=== PATIENT | female | born 1955 | race Caucasian/White ===

== ENCOUNTER 2017-10-28 05:08 | Day surgery (SDC) | payer OTHER ==
[~2017-10-28] VITALS: Ht 167.6 cm; Wt 58.3 kg
[~2017-10-28 05:08] MED LIST: ARIC5TAB PO; BUPR-197 PO; LAMO25 PO; LATU80TA PO; LEVO.05 PO; PRAV40TA2 PO; PROC10TA4 PO
[2017-10-28] MEDS ORDERED: IOHEXOL 350 MG/ML 100 ML BTL (for Cath Lab) OTHER ONE (05:09)
[2017-10-28] MEDS ORDERED: MULT-65 PO (05:36)
[2017-10-28] MEDS ORDERED: OMEGCAP PO (05:36)
[2017-10-28] MEDS ORDERED: VITA200013 (05:36)
[2017-10-28] MEDS ORDERED: LOVA10TA PO (05:36)
[2017-10-28] MEDS ORDERED: MIRT1TAB PO (05:36)
[2017-10-28] MEDS ORDERED: LEVO.125 PO (05:36)
[2017-10-28] MEDS ORDERED: ABIL10TA8 PO (05:36)
[2017-10-28] MEDS ORDERED: Calcium PO (05:36)
[2017-10-28] MEDS ORDERED: BUSP15TA PO (05:36)
[2017-10-28] MEDS ORDERED: LAMO25 PO (05:36)
[2017-10-28] MEDS ORDERED: NS 1000P @30 MLS/HR (KVO) IV SCH (05:45)
[2017-10-28] MEDS ORDERED: ASPIRIN 325 MG TAB PO SCH (05:45)
[2017-10-28 05:46] VITALS: BP 166/84; PULSE 87; RESP 16; TEMP 97.8; O2SAT 97
[2017-10-28 05:59] LABS: AUTOMATED NEUTROPHIL # 3.3 TH/MM3 (1.8-7.7); BASOPHIL # 0.1 TH/MM3 (0-0.2); BASOPHIL % 0.9 % (0.0-2.0); EOSINOPHIL # 0.6 TH/MM3 (0-0.4); EOSINOPHIL % 8.8 % (0.0-4.0); HEMATOCRIT 39.9 % (35.0-46.0); HEMOGLOBIN 13.3 GM/DL (11.6-15.3); LYMPH % 29.7 % (9.0-44.0); LYMPHOCYTE # 2.1 TH/MM3 (1.0-4.8); MEAN CELL VOLUME 93.2 FL (80.0-100.0); MEAN CORPUSCULAR HEMOGLOBIN 31.1 PG (27.0-34.0); MEAN CORPUSCULAR HGB CONC 33.4 % (32.0-36.0); MEAN PLATELET VOLUME 8.9 FL (7.0-11.0); MONO % 13.6 % (0.0-8.0); PLATELET COUNT 269 TH/MM3 (150-450); RED BLOOD COUNT 4.28 MIL/MM3 (4.00-5.30); RED CELL DISTRIBUTION WIDTH 13.9 % (11.6-17.2); WHITE BLOOD COUNT 7.1 TH/MM3 (4.0-11.0)
[2017-10-28 06:14] LABS: BICARBONATE 30.5 MEQ/L (21.0-32.0); CALCIUM 9.3 MG/DL (8.5-10.1); CREATININE 1.04 MG/DL (0.50-1.00)
[2017-10-28 06:25] LABS: PROTHROMBIN TIME - PATIENT 10.3 SEC (9.8-11.6)
[2017-10-28] MEDS ORDERED: HEPARIN-NS/PF FLUSH BAG 2,000 ML IV FLUSH ONE (07:02)
[2017-10-28] MEDS ORDERED: ASPIRIN 325 MG TAB ONE (07:11)
[2017-10-28] MEDS ORDERED: MIDAZOLAM HCL 2 MG/2 ML VIAL ONE (07:11)
[2017-10-28] MEDS ORDERED: LIDOCAINE HCL 1% PF 30 ML VIAL ONE (07:23)
[2017-10-28] MEDS ORDERED: NITROGLYCERIN INJ 5 ML ONE (07:34)
--- NOTE | 2017-10-28 08:21 | EKG ---
Date Performed: 10/28/2017 Time Performed: 05:57:10 PTAGE: 62 years EKG: Sinus rhythm with 1st degree A-V block Possible left atrial abnormality Leftward axis Inferior infarct - age unde termined Possible anterior infarct - age undetermined Minimal voltage criteria for LVH Abnormal ECG NO PREVIOUS TRACING DOCTOR: Alfonso Gaona Interpretating Date/Time 10/28/2017 08:20:22
[2017-10-28] MEDS ORDERED: SODIUM CHLORIDE 0.9% FLUSH 10 ML FLUSH IV FLUSH PRN (08:45)
[2017-10-28] MEDS ORDERED: MISC INFORMATION XX ONE (08:45)
[2017-10-28] MEDS ORDERED: ONDANSETRON HCL 4 MG/2 ML VIAL IV PUSH PRN (08:45)
[2017-10-28] MEDS ORDERED: BACITRACIN OINT 0.9 GM PKT TOP ONE (08:45)
[2017-10-28] MEDS ORDERED: SODIUM CHLOR 0.9% 1000 ML INJ 1,000 ML IV SCH (09:00)
[2017-10-28] MEDS ORDERED: SODIUM CHLORIDE 0.9% FLUSH 10 ML FLUSH IV FLUSH SCH (09:00)
--- NOTE | 2017-10-28 09:00 | CATHPROC ---
Travel Notes HIS Report Study Information Study Number Admission Scheduled Start Study Start [id number] Oct 28 2017 5:08AM 10/28/2017 Oct 28 2017 6:55AM [place] [facility] Cardiac Catheterization Admit Source Facility Department Other [facility] - Clerical Administrator Physician and Clinical Staff Initial Kendall Salamanca Field Sales Trainer Manjula Toscano,RN Field Sales Trainer Arnaud Marcus,RN Recorder Karla Terry ,RT(R) Scrub Keli Franz,RT(R) Procedures Performed Procedure Location (Site) Vessel Name Angiogram LV LV Ventricle Coronary Angiograms LCA Left Coronary Coronary Angiograms RCA Right Coronary Equipment Time Server Software Engineer Description Size Mfg Part Number Used/Scraped [id number] 06:58 GARCIA GUSMAN SWAN NEVILLE CATHETER FR 7 Used *[id number] TRANSDUCER, TRUWAVE [id number] 06:58 GARCIA GUSMAN * Used W/STOCKCOCK *[id number] TRANSDUCER, TRUWAVE [id number] 06:58 GARCIA UGSMAN * Used W/STOCKCOCK *[id number] *[id number] [id number] *[id number] [id number] *[id number] 06:58 MEDLINE INDUSTRIES PACK, CCL CUSTOM * Used *[id number] 06:58 Enable Injections PACER PEN, SKIN DUAL W/ RULER * Used *[id number] 07:19 Porphyrio MEDICAL SHEATH, FR6.5 PRELUDE 11CM FR 6.5 038ACT Used *[id number] 06:58 Porphyrio MEDICAL WIRE, 3MMJ .035 180CM 180CM Used *[id number] 06:58 NAMIC MANIFOLD, 2 PORT * Used *[id number] 06:58 NAMIC MANIFOLD, 4 PORT * Used *[id number] 06:58 NYCOMED OMNIPAQUE, 350 MG, 100ML 100ML [id number] Used [id number] 06:58 PIZANO MEDICAL BLANKET,WARM AIR CCL * Used *[id number] 06:58 TERUMO MEDICAL SHEATH, FR7 TERUMO (10CM) FR 7 Used *[id number] History: Current Medications Medication Dosage/Unit Route Frequency Last Date/Time Taken ASA Statins (any) Synthroid History: Allergies Allergy Reaction *MDRO Multi-Drug Resistant Organism History: Risk Factors Family History of Hypertension Dyslipidemia Previous IA Previous Heart Failure Premature CAD No Yes No No No Prior Valve Prior PCI Prior CABG Surgery No No No Cerebrovascular Peripheral Artery Chronic Lung On Dialysis Diabetes Disease Disease Disease No No No No No History: Stress Tests Stress or Imaging Studies Performed No History: Other Current Smoker Method Quit Packs a Day Years Used Pack Years No Cigarettes 10 Years Ago 1 1 1 Labs Hgb (g/dl) Hct (%) WBC (l/cumm) Platelets (thousands) 11.60-17.00 35.00-51.00 4.00-11.00 150.00-450.00 13.3 39.9 7.1 269 Glucose (mg/dl) BUN (mg/dl) Creatinine (mg/dl) BUN:Creatinine (1:x) 74.00-106.00 7.00-18.00 0.50-1.30 10.00-20.00 94 17 1.0 17 Na (meq/l) K (meq/l) 136.00-145.00 3.50-5.10 140 3.9 INR (PTT:PT) 0.90-1.10 1 CPK-MB (ng/ML) 0.50-3.60 Not Drawn Medication Medication Total Dose (Bolus/Oral) Medication Total Dosage/Unit 1% XYLOCAINE 15 mL VERSED 1 mg Medications (Bolus/Oral) Medication Time Given Dosage/Unit Administered By Reason VERSED 10/28/2017 7:53:45 AM 1 mg Arnaud Marcus 1 mg VERSED given in lab by Arnaud Marcus, RN in Left Antecubital via Peripheral IV. Ordered by Kendall Sheppard. 1% XYLOCAINE 10/28/2017 7:58:20 AM 15 mL Kendall Sheppard 15 mL 1% XYLOCAINE given in lab by Kendall Sheppard in Right Groin via Subcutaneous. Ordered by Kendall Sheppard. Medication (Drip) Medication Time Given Dosage/Unit Concentration/Unit Diluent (ml) Solution IV Solutions 10/28/2017 7:17:04 AM 50 mL (IV) NaCl .9 Patient arrived on IV Solutions in Left Antecubital via Peripheral IV. Pump/Drip Flow using NaCl .9. Initial Case Assessment Cardiovascular HR NIBP Chest Pain 96 163/87 0 Edema Present Skin color Skin None Normal Warm Dry Circulatory - Right Pulses Dorsalis Pedis Femoral 2 2 Scale (0,1,2,3,4,d) Circulatory - Left Pulses Dorsalis Pedis Femoral 2 2 Scale (0,1,2,3,4,d) Circulatory - Lower Extremities Color Lower Right Color Lower Left Normal Normal Neurological State Oriented to time-place- Alert Moves all extremities person Respiration - General Respiration Rate SpO2 (%) (B/min) 20 98 Final Case Assessment Cardiovascular HR NIBP Chest Pain 96 163/87 0 Edema Present Skin color Skin None Normal Warm Dry Circulatory - Right Pulses Dorsalis Pedis Femoral 2 2 Scale (0,1,2,3,4,d) Circulatory - Left Pulses Dorsalis Pedis Femoral 2 2 Scale (0,1,2,3,4,d) Circulatory - Lower Extremities Color Lower Right Color Lower Left Normal Normal Neurological State Oriented to time-place- Alert Moves all extremities person Respiration - General Respiration Rate SpO2 (%) (B/min) 20 98 Chronological Log Time Study Chronological Log 7:10:11 Patient arrived via Bed. 7:10:15 Patient Name, D.O.B, / Armband Verified By R.N. 7:16:50 Consent signed by the physician and the patient and verified by the Clerical Administrator staff. 7:16:51 Pre-op and post- op instructions given; patient acknowledges understanding of instructions. 7:16:52 Verbal Stimulation=2 Physical Stimulation=2 Airway=2 Respiration=2 TOTAL=8. (0=absent, 1=li mited, 2=present) 7:16:57 Patient has been NPO for More than 6Hrs. 7:16:57 Skin Breakdown- none per patient 7:16:59 Patient Warmer Placed on the Table. 7:17:01 Jeffrey Prominences Protected 7:17:03 A # 20 IV was noted in the Antecubital (left). Grade = 0 7:17:04 Patient arrived on IV Solutions in Left Antecubital via Peripheral IV. Pump/Drip Flow using NaCl .9. 7:17:06 History and physical on the chart or being dictated. Assessment: Initial Case, HR=96 BPM, IBZR=482/87 mmhg, Chest Pain=0, Edema=None, Color=Normal, S kin = Warm, Dry Right Pulses: Rupert Ped=2, Femoral=2 Left Pulses: Rupert Ped=2, Femoral=2 7:17:09 Lower Right Extremities: Color=Normal Lower Left Extremities: Color=Normal Neurological: State=Alert, Ox3, [place] Respiration: Resp=20 B/min, SpO2=98 % Vitals capture started with the following parameters, Patient=Adult, Interval=5 min, Initial Pre bjiac=892 mmHg, 7:18:34 Deflation Rate=5 mmHg, Cuff placed on Unknown 7:19:16 HR=90 bpm, OBVR=959/87 mmhg, SpO2=99.0 %, Resp=14 B/min, Pain=0, Corbin=10, Gomez=2 7:22:53 Reference ECG taken 7:24:15 HR=93 bpm, FLIN=630/90 mmhg, ImR4=973.0 %, Resp=14 B/min, Pain=0, Corbin=10, Gomez=2 7:29:12 HR=95 bpm, DIAW=654/95 mmhg, SpO2=99.0 %, Resp=16 B/min, Pain=0, Corbin=10, Gomez=2 7:34:17 HR=93 bpm, PAVD=642/83 mmhg, SpO2=99.0 %, Resp=29 B/min, Pain=0, Corbin=10, Gomez=2 7:39:51 HR=89 bpm, FKKU=893/80 mmhg, SpO2=96.0 %, Resp=12 B/min, Pain=0, Corbin=10, Gomez=2 7:41:21 MD arrived. 7:42:52 Pressure channel 1 zeroed. 7:44:11 HR=94 bpm, KFXG=774/88 mmhg, SpO2=98.0 %, Resp=18 B/min, Pain=0, Corbin=10, Gomez=2 7:49:14 HR=96 bpm, JIOQ=493/79 mmhg, SpO2=98.0 %, Resp=10 B/min, Pain=0, Corbin=10, Gomez=2 7:53:45 1 mg VERSED given in lab by Arnaud Marcus, RN in Left Antecubital via Peripheral IV. Ordered by Kendall Sheppard. 7:54:11 LF=569 bpm, ITMX=851/80 mmhg, SpO2=99.0 %, Resp=18 B/min, Pain=0, Corbin=10, Gmoez=2 Time Out. Correct patient, correct procedure, correct physician, power injector loaded with cont rast with surgical team 7:55:11 present. Time Out Concurred by MD and individual staff in procedure. 7:55:35 Case Start 7:58:20 15 mL 1% XYLOCAINE given in lab by Kendall Sheppard in Right Groin via Subcutaneous. Ordered by Kendall Sheppard. 7:59:14 HR=98 bpm, YXYF=665/82 mmhg, SpO2=99.0 %, Resp=17 B/min, Pain=0, Corbin=10, Gomez=2 7:59:19 Access site was Right Femoral Artery. 7:59:50 A SHEATH, FR6.5 PRELUDE 11CM FR 6.5 was advanced into the Fem Art (right) using the Percutan eous technique. 8:01:12 Access site was Right Femoral Vein. 8:01:20 A SHEATH, FR7 TERUMO (10CM) FR 7 was advanced into the Fem Vein (right) using the Percutaneo us technique. A SWAN NEVILLE CATHETER FR 7 was advanced over a wire. OMNIPAQUE, 350 MG, 100ML 100ML was used for 8:03:13 injections. 8:04:11 HR=97 bpm, DITD=197/81 mmhg, SpO2=96.0 %, Resp=22 B/min, Pain=0, Corbin=10, Gomez=2 Recorded Pressure: RA, HR=96, Condition=Condition 1 8:04:23 (Right Atrium) RA 6/7/5 Recorded Pressure: RV, HR=98, Condition=Condition 1 8:04:41 (Right Ventricle) RV 44/-1/6 Recorded Pressure: MPA, HR=97, Condition=Condition 1 8:05:07 (Main Pulmonary Artery) MPA 44/20/30 Recorded Pressure: PCW, HR=97, Condition=Condition 1 8:05:25 (Pulmonary Capillary Wedge) PCW 17/14/12 Thermo CO: CO=3.1 l/m, HR=96 bpm, Condition=Condition 1. Used in calculation. 8:06:42 Equipment: Description and Size=SWAN NEVILLE CATHETER FR 7, Type=Bath Probe, CC=0.579 Injectant: Temp=19.0 - 22.0 Celsius, Volume=10.0 ml Thermo CO: CO=3.1 l/m, HR=96 bpm, Condition=Condition 1. Used in calculation. 8:07:22 Equipment: Description and Size=PIGTAIL STR INFINITI CATHETER FR 6, Type=Bath Probe Thermo CO: CO=3.4 l/m, HR=95 bpm, Condition=Condition 1. Used in calculation. 8:08:39 Equipment: Description and Size=SWAN NEVILLE CATHETER FR 7, Type=Bath Probe, CC=0.579 Injectant: Temp=19.0 - 22.0 Celsius, Volume=10.0 ml 8:09:12 Saturation: Site=Ao (Aorta) , O2=94.1 %, Hgb=13.3 gm/dl, Condition=Condition 1. Used in calc ulation. 8:09:14 HR=97 bpm, TSWF=902/78 mmhg, SpO2=96.0 %, Resp=14 B/min, Pain=0, Corbin=10, Gomez=2 8:09:16 Saturation: Site=PA (Pulmonary Artery) , O2=73 %, Hgb=13.3 gm/dl, Condition=Condition 1. Use d in calculation. 8:10:06 [place] Neville Catheter Removed A PIGTAIL STR INFINITI CATHETER FR 6 was advanced over a wire. OMNIPAQUE, 350 MG, 100ML 100ML wa s used for 8:10:31 injections. 8:12:51 The LV was injected at 20 cc/sec for a total of 40. OMNIPAQUE, 350 MG, 100ML 100ML used. 8:14:11 HR=93 bpm, JYKN=252/78 mmhg, SpO2=99.0 %, Resp=16 B/min, Pain=0, Corbin=10, Gomez=2 After removing the current catheter a JL 4.0 INFINITI CATHETER FR 6 was advanced over a WIRE, 3M MJ .035 180CM 8:14:33 180CM. Recorded Pressure: Ao, HR=92, Condition=Condition 1 8:15:29 (Aorta) Ao 139/72/102 8:16:30 The LCA was injected and visualized at various angles. OMNIPAQUE, 350 MG, 100ML 100ML used. 8:16:56 Catheter was removed A 3DRC INFINITI CATHETER FR 6 was advanced over a wire. OMNIPAQUE, 350 MG, 100ML 100ML was used for 8:19:02 injections. 8:19:08 The RCA was injected and visualized at various angles. OMNIPAQUE, 350 MG, 100ML 100ML used. 8:19:16 HR=81 bpm, SGCC=340/71 mmhg, SpO2=97.0 %, Resp=21 B/min, Pain=0, Corbin=10, Gomez=2 8:19:30 Catheter was removed 8:20:39 Case End 8:24:15 HR=88 bpm, RGYZ=268/66 mmhg, SpO2=97.0 %, Resp=17 B/min, Pain=0, Corbin=10, Gomez=2 Assessment: Final Case, HR=96 BPM, TQAM=308/87 mmhg, Chest Pain=0, Edema=None, Color=Normal, Ski n = Warm, Dry Right Pulses: Rupert Ped=2, Femoral=2 Left Pulses: Rupert Ped=2, Femoral=2 8:29:04 Lower Right Extremities: Color=Normal Lower Left Extremities: Color=Normal Neurological: State=Alert, Ox3, [place] Respiration: Resp=20 B/min, SpO2=98 % 8:29:14 HR=87 bpm, TEFB=397/72 mmhg, SpO2=98.0 %, Resp=16 B/min, Pain=0, Corbin=10, Gomez=2 8:32:12 Catheter(s) removed without difficulty 8:32:16 Sheath removed; pressure applied to access site. 8:32:26 Sterile dressing applied to site 8:32:28 No case complications noted. 8:32:30 Cine recording checked. 8:32:35 Bedside Report will be given. 8:32:59 A Left and Right Heart Cath was performed. 8:34:15 HR=90 bpm, JTEB=151/78 mmhg, SpO2=97.0 %, Resp=16 B/min, Pain=0, Corbin=10, Gomez=2 8:39:16 HR=88 bpm, ULHU=500/69 mmhg, DcH2=174.0 %, Resp=27 B/min, Pain=0, Corbin=10, Gomez=2 8:44:11 HR=83 bpm, NLJI=651/72 mmhg, SpO2=99.0 %, Resp=12 B/min, Pain=0, Corbin=10, Gomez=2 8:49:12 HR=85 bpm, QFPZ=392/70 mmhg, SpO2=96.0 %, Resp=19 B/min, Pain=0, Corbin=10, Gomez=2 8:52:24 Sterile dressing applied to site 8:53:50 Vitals capture stopped. 8:54:10 DOCU called. Spoke to Navarro. 8:54:58 Patient moved to stretcher End Study - Contrast Media Used In Study Contrast Total Opened (mL) Total Used (mL) Total Wasted (mL) Omnipaque 60 60 0 End Study - Maximum Contrast Load Max Contrast Load (mL) 291.6 End Study - Radiation Exposure Fluoro Time (minutes) 2.9 End Study - Sheaths Sheaths Pulled By Sheath Hold Time (min) Arnaud Marcus End Study - Patient Disposition Complications Transferred To Interventional Outcome No Telemetry Bed No attempt made
--- NOTE | 2017-10-28 09:28 | MA ---
cc: Kendall Sheppard MD DATE: 10/28/2017 PROCEDURE PERFORMED: Right heart catheterization, coronary angiography, supravalvular aortography. BRIEF HISTORY: Randy Khan is a 62-year-old woman that I have been following for aortic stenosis. Recently, she has developed a feeling of being extra tired and her mean aortic valve gradient shot up from 26 mm to 43 mm indicating severe aortic stenosis. DESCRIPTION OF PROCEDURE: The patient was brought to the cardiac catheterization lab in a fasting state. The right groin was prepped and draped in sterile fashion. Using 1% lidocaine for local anesthesia, a 6.5-Kyrgyz sheath was inserted in the right femoral artery and a 7-Kyrgyz sheath in right femoral vein. Next, right heart catheterization was performed in standard fashion using a [place]-Rayray catheter. Cardiac outputs obtained. The [place]-Rayray was then removed. Next, a supravalvular aortography was performed in the [place] projection. Lastly, coronary angiography was completed using a left 4 Tatyana for left coronary artery and a 3DRC for the right coronary artery. The sheath are now being pulled manually. There were no complications. Estimated blood loss was 3 mL FINDINGS: I. HEMODYNAMICS: Right atrial pressure was 6/7 with a mean of 5. Right ventricular pressure was 44/0 with an end end-diastolic pressure of 6. Pulmonary artery pressure was 44/20 with a mean of 30. Pulmonary capillary wedge pressure was 17/14 with a mean of 12. Aortic pressure was 139/72 with a mean of 102. Cardiac output calculated by thermodilution technique at 3.2 liters/minute. The [place] cardiac output was 5.4 liters/minute utilizing saturations of 94% in the femoral artery and 73% in the pulmonary artery. II. SUPRAVALVULAR AORTOGRAPHY: The aortic valve was noted to be heavily calcified and tricuspid. The valve appears markedly stenotic. There is at least 2+ aortic regurgitation appreciated. The aorta appears unremarkable as does the iliac bifurcation. III. CORONARY ANGIOGRAPHY: The coronary circulation is right dominant. All 3 coronary arteries appear normal. CONCLUSIONS: 1. Known severe aortic stenosis with an echocardiogram showing a mean aortic valve gradient of 43 mmHg. 2. At least moderate aortic regurgitation which probably precludes the ability to do transcatheter aortic valve replacement, meaning she will need open aortic valve replacement. 3. Normal coronary arteries. PLAN: Consult Dr. Navarrete for open AVR. That and then before I concluded. Cardiac output does fill in the blanks on that. Cardiac output was calculated by thermodilution technique at 3.2 liters per minute. The [place] cardiac output was 5.4 liters per minute utilizing saturations of 94% on the femoral artery and 73% of the pulmonary artery. MD AALIYAH Pacheco/MARIBELL , 08:31 AM , 09:27 AM
--- NOTE | 2017-10-28 12:07 | RADRPT ---
EXAM DATE/TIME: 10/28/2017 11:31 [facility] COMPARISON: No previous studies available for comparison. INDICATIONS : Pre op for aortic valve replacement. MEDICAL HISTORY : Hypertension. Spleen cancer. Hodgins. SURGICAL HISTORY : Splenectomy. Hysterectomy. ENCOUNTER: Initial ACUITY: 1 day PAIN SCORE: 0/10 LOCATION: Bilateral chest FINDINGS: A single view of the chest demonstrates postsurgical changes on the left with volume loss. Elevation left hemidiaphragm. Right lung is clear. No consolidation. Osseous structures are intact. Scoliosis. Residual contrast left collecting system. CONCLUSION: Postsurgical changes and volume loss on the left. Rajan Ahumada MD on October 28, 2017 at 12:04 Board Certified Radiologist. This report was verified electronically.
--- NOTE | 2017-10-28 12:17 | RADRPT ---
EXAM DATE/TIME: 10/28/2017 11:39 [facility] COMPARISON: No previous studies available for comparison. INDICATIONS : Preop aortic valve replacement. MEDICAL HISTORY : Hypothyroidism. Seizures. HTN. Irregular heartbeat. Carcinoma, ovarian and spleen. Hodgkins disea se. Bipolar disorder. Depression. Anxiety. SURGICAL HISTORY : Splenectomy. Hysterectomy. Thyroplasty. Tumor removed from chest wall. Radiation therapy. ENCOUNTER: Initial ACUITY: 1 day PAIN SCORE: 0/10 LOCATION: Bilateral neck PEAK SYSTOLIC VELOCITIES (cm/sec): ICA/CCA RATIO: Right: 1.1 Left: 1.3 ICA: Right: 80 Left: 105 CCA: Right: 74 Left: 79 ECA: Right: 76 Left: 59 VERTEBRAL: Right: 39 antegrade Left: 43 antegrade Elevated flow velocities and ICA/CCA ratios have been found to correlate with increased degrees of vessel stenosis, calculated as percentage of diameter relative to a normal segment of distal ICA/CCA FINDINGS: RIGHT CAROTID: No significant stenosis is visualized. Minimal scattered plaque. The waveforms are within normal limi ts. LEFT CAROTID: No significant stenosis is visualized. Minimal scattered plaque. The waveforms are within normal wade its. VERTEBRAL ARTERIES: Antegrade flow is seen in both vertebral arteries. MISCELLANEOUS: None. CONCLUSION: No hemodynamically significant stenosis in either carotid artery. Rajan Ahumada MD on October 28, 2017 at 12:14 Board Certified Radiologist. This report was verified electronically.
--- NOTE | 2017-10-28 15:21 | PD.CAR.PN ---
CVT Progress Note Subjective/Hospital Course: pt seen and evaluated full note dictated for elective AVR as outpt repeat PFT/ FEV1 0.80/ ?? await CT chest / hx of prior partial sternotomy removal tumor ( Hodgkins lymphoma) RISK SCORES About the STS Risk Calculator Procedure: AV Replacement Risk of Mortality: 2.237% Morbidity or Mortality: 15.707% Long Length of Stay: 6.478% Short Length of Stay: 38.137% Permanent Stroke: 0.95% Prolonged Ventilation: 10.744% DSW Infection: 0.15% Renal Failure: 2.674% Reoperation: 6.545% Objective: Vital Signs Date Time Temp Pulse Resp B/P (MAP) Pulse Ox O2 Delivery O2 Flow Rate FiO2 10/28/17 09:10 98 Room Air 10/28/17 05:46 97.8 87 16 166/84 (111) 97 Labs: Laboratory Tests Test 10/28/17 05:43 White Blood Count 7.1 TH/MM3 (4.0-11.0) Red Blood Count 4.28 MIL/MM3 (4.00-5.30) Hemoglobin 13.3 GM/DL (11.6-15.3) Hematocrit 39.9 % (35.0-46.0) Mean Corpuscular Volume 93.2 FL (80.0-100.0) Mean Corpuscular Hemoglobin 31.1 PG (27.0-34.0) Mean Corpuscular Hemoglobin Concent 33.4 % (32.0-36.0) Red Cell Distribution Width 13.9 % (11.6-17.2) Platelet Count 269 TH/MM3 (150-450) Mean Platelet Volume 8.9 FL (7.0-11.0) Neutrophils (%) (Auto) 47.0 % (16.0-70.0) Lymphocytes (%) (Auto) 29.7 % (9.0-44.0) Monocytes (%) (Auto) 13.6 % (0.0-8.0) Eosinophils (%) (Auto) 8.8 % (0.0-4.0) Basophils (%) (Auto) 0.9 % (0.0-2.0) Neutrophils # (Auto) 3.3 TH/MM3 (1.8-7.7) Lymphocytes # (Auto) 2.1 TH/MM3 (1.0-4.8) Monocytes # (Auto) 1.0 TH/MM3 (0-0.9) Eosinophils # (Auto) 0.6 TH/MM3 (0-0.4) Basophils # (Auto) 0.1 TH/MM3 (0-0.2) CBC Comment DIFF FINAL Differential Comment Prothrombin Time 10.3 SEC (9.8-11.6) Prothromb Time International Ratio 1.0 RATIO Activated Partial Thromboplast Time 23.0 SEC (24.3-30.1) Blood Urea Nitrogen 17 MG/DL (7-18) Creatinine 1.04 MG/DL (0.50-1.00) Random Glucose 94 MG/DL (74-106) Calcium Level 9.3 MG/DL (8.5-10.1) Sodium Level 140 MEQ/L (136-145) Potassium Level 3.9 MEQ/L (3.5-5.1) Chloride Level 103 MEQ/L (98-107) Carbon Dioxide Level 30.5 MEQ/L (21.0-32.0) Anion Gap 7 MEQ/L (5-15) Estimat Glomerular Filtration Rate 54 ML/MIN (>89) Result Diagram: 10/28/17 0543 10/28/17 0543 Judith Pruitt Oct 28, 2017 15:21
[2017-10-28 15:55] LABS: BILIRUBIN, URINE NEG (NEG); BLOOD, URINE NEG (NEG); GLUCOSE,URINE NEG (NEG); KETONE, URINE NEG (NEG); NITRITE,URINE NEG (NEG); SQUAMOUS EPITHELIAL CELL URINE 1 /hpf (0-5); URINE COLOR LIGHT-YELLOW (YELLW/STRAW); URINE LEUKOCYTE ESTERASE NEG (NEG)
--- NOTE | 2017-10-28 16:08 | MB ---
cc: Judith Pruitt Jacqueline R ARNP DATE: 10/28/2017 DATE OF : 1955 HISTORY OF PRESENT ILLNESS: A 62-year-old female patient of Dr. Selwyn Ty with a history of aortic regurgitation, aortic stenosis, increasing symptoms of fatigue, shortness of breath with exertion; no chest pain, more noticeably over the last couple of months. She underwent cardiac catheterization today after her recent echo on 10/08/2017 which showed an ejection fraction of 62%, the aortic valve area up to 0.66 with a mean gradient of 46, peak gradient of 83. She also had some moderate regurgitation, mild mitral regurgitation and mild tricuspid regurgitation, mild LVH. Cardiac catheterization revealed no evidence of coronary artery disease. Her right-sided heart pressures: RA pressure of 6, mean of 5, RV pressure of 44, PA pressure of 44/20 with a mean of 30, wedge pressure with a mean of 12. We were consulted for aortic valve replacement. PAST MEDICAL HISTORY: Aortic stenosis, aortic regurgitation, first degree AV block, bipolar disorder with prior history of katrina, in fact she has been hospitalized in the past and also Dykes Acted, depression, Hodgkin's lymphoma with a history of radiation, splenectomy, also partial sternotomy - apparently they removed a tumor at that time, hyperlipidemia, hypertension, hypothyroidism, skin cancer - basal cell removed behind the right ear. PAST SURGICAL HISTORY: Other surgeries include colonoscopy, hysterectomy, oophorectomy, splenectomy, vocal cord biopsy. ALLERGIES: NO KNOWN ALLERGIES. HOME MEDICATIONS: Include: 1. Abilify. 2. Aspirin. 3. BuSpar. 4. Fluoxetine. 5. Lamotrigine or Lamictal. 6. Levothyroxine. 7. Lovastatin. 8. Mirtazapine. FAMILY HISTORY: History of lung cancer in her father. Mother had from breast cancer and Alzheimer's. SOCIAL HISTORY: Lives alone, has a sister who is visiting with her now. Remote history of tobacco and rare alcohol. She did some illicit drugs about 30 years ago, nothing recent. REVIEW OF SYSTEMS: GENERAL: No night sweats, fever, heat and cold intolerance. SKIN: No psoriasis, itching or hives. HEENT: No blurred vision, hearing loss. RESPIRATORY: Positive for shortness of breath with exertion. No chest pain, no paroxysmal nocturnal dyspnea. No orthopnea. GASTROINTESTINAL: No diarrhea or vomiting. GENITOURINARY: No burning, frequency, urgency. CENTRAL NERVOUS SYSTEM: No history of TIA, CVA or seizure disorder. ENDOCRINOLOGY: Positive for hypothyroidism. PHYSICAL EXAMINATION: VITAL SIGNS: Blood pressure 160/80, heart rate of 80, afebrile, O2 saturation 97 on room air. GENERAL: Awake and alert, in no acute distress. Slight flat affect. HEENT: Head is normocephalic, atraumatic. Pupils equal and reactive. Oral mucosa pink, moist. NECK: Supple. No JVD. CARDIOVASCULAR: Heart sounds S1, S2, with a grade 3/6 systolic murmur best heard at the left sternal border. CHEST: She has got a well-healed sternal incision. LUNGS: Clear to auscultation. No wheezes, rales or rhonchi. ABDOMEN: Soft, nontender. No masses or organomegaly. EXTREMITIES: No cyanosis, clubbing, or edema. LABORATORY DATA: Shows INR 1.0. Hemoglobin 13, hematocrit 39, white cell count of 7.1, platelet count of 269. Sodium 140, potassium 3.9, BUN is 17, creatinine 1.04. EKG shows sinus rhythm with some Q-waves in her inferior leads with normal coronaries on the cath. Echo as above. IMPRESSION AND PLAN: This is a 62-year-old female with severe aortic stenosis, symptomatic. At this time we are pending CTA of the chest secondary also to a sternotomy she had prior for her Hodgkin's lymphoma back in 1980. Also, repeat pulmonary function tests pending for her FEV1. Apparently, she was not completely sitting up during the test. We will repeat the studies. We will bring the patient back to see Dr. Navarrete in the office on 11/11/2016 to evaluate at that time all her preprocedure results and discuss that and surgery at that time will be determined by Dr. Navarrete. VIJI Bell MD JRT/SB , 03:28 PM , 04:06 PM
[2017-10-28 16:48] LABS: HEMOGLOBIN A1C 5.6 % (4.3-6.0)
[2017-10-28] MEDS ORDERED: IOHEXOL 350 MG/ML 10 ML VIAL (for RAD DIAG) IVCONTRAST ONE (18:20)
--- NOTE | 2017-10-29 12:32 | RADRPT ---
EXAM DATE/TIME: 10/28/2017 18:09 [place] COMPARISON: No previous studies available for comparison. INDICATIONS : Preoperative Trans Aortic Valve Replacement. IV CONTRAST: 72 cc Omnipaque 350 (iohexol) IV RADIATION DOSE: 28.16 CTDIvol (mGy) MEDICAL HISTORY : Hypertension. Seizures. ovarian cancer, splenic cancer SURGICAL HISTORY : Hysterectomy. coronary stent placement ENCOUNTER: Initial ACUITY: 1 day PAIN SCALE: 0/10 LOCATION: Bilateral chest TECHNIQUE: Volumetric scanning was performed using a multi-row detector CT scanner. The data was post processed with a variety of visualization algorithms including full volume maximum intensity projection, multi -planar sliding thin slab reformation, curved planar reformation, and surface rendering techniques. Using automated exposure control and adjustment of the mA and/or kV according to patient size, radiat ion dose was kept as low as reasonably achievable to obtain optimal diagnostic quality images. DIC OM format image data is available electronically for review and comparison. FINDINGS: CARDIAC: Coronary dominance cannot be determined due to the limited anatomic detail of the coronaries. T here is no pericardial effusion AORTIC ROOT/VALVE: 3 cusps are evident with extensive calcification. The aortic root measures 3.2. Mid thoracic aorta measures 2.9 with no calcifications. THORACIC AORTA: Origin of the great vessels is normal. No evidence of aneurysm, mural thrombus, dissection or stenos is. Some calcification in the arch. ABDOMINAL AORTA: No evidence of aneurysm, mural thrombus, dissection, or stenosis. Scattered atherosclerotic calcifica tion CELIAC ARTERY: Celiac artery is widely patent. There appears to be a clip on the splenic artery with splenectomy. SMA: Superior mesenteric artery is widely patent. RIGHT RENAL ARTERY: Main and accessory right renal arteries are patent. LEFT RENAL ARTERY: Main and accessory left renal arteries are patent. RIGHT COMMON ILIAC: No evidence of aneurysm, mural thrombus, dissection or stenosis. Some calcification in the common il iac. The common femoral measures 8.4 mm. LEFT COMMON ILIAC: No evidence of aneurysm, mural thrombus, dissection, mural calcification, or stenosis. The common fe moral measures 8.1 mm. There is some stranding in the right inguinal region possibly representing rec ent catheterization. THORAX: Multiple surgical clips in the mediastium possibly representing prior claudia dissection. There is dens e calcification of the mitral valve annulus ABDOMEN: Patient is status post splenectomy. There also appears to be marked atrophic changes along the superi or pole of left kidney. Diverticular disease of the descending colon without diverticulitis. Appendix is identified and is radiographically normal. PELVIS: Patient is status post hysterectomy. CONCLUSION: 1. Dense atherosclerotic calcification of the aortic valve as above. Calcification of the mitral rusty ve annulus. 2. Main and accessory renal arteries bilaterally. Mesenteric vessels appear to be patent. 3. Atrophic changes in the upper pole of the left kidney. Patient is status post splenectomy. Chris Coley MD on October 29, 2017 at 11:41 Board Certified Radiologist. This report was verified electronically.
--- NOTE | 2017-10-30 08:21 | RSPPFT ---
DATE OF PROCEDURE: 10/27/17 COMMENTS: VOLUMES DYNAMIC: FVC and FEV1 severely reduced. FLOWS: FEV1% normal; FEF 25-75 severely reduced. IMPRESSION: Probable severe restrictive ventilatory defect although obstruction cannot be fully assessed without full lung volumes.
[2017-10-31] MEDS ORDERED: CALC12502 PO (10:37)
== END 2017-10-28 18:50 | disposition home or self-care (01) ==
LOC: HDOC 05:08 → HDIC 05:08 → HDOC 18:50
PROVIDERS: ATTEND Internal Medicine Cardiovascular Disease
DX: I35.0 Nonrheumatic aortic (valve) stenosis (principal); I35.1 Nonrheumatic aortic (valve) insufficiency; I10 Essential (primary) hypertension; I44.0 Atrioventricular block, first degree; Q27.2 Other congenital malformations of renal artery; E03.9 Hypothyroidism, unspecified; F31.9 Bipolar disorder, unspecified; F41.9 Anxiety disorder, unspecified; Z85.43 Personal history of malignant neoplasm of ovary; Z85.71 Personal history of Hodgkin lymphoma; Z90.81 Acquired absence of spleen; Z95.5 Presence of coronary angioplasty implant and graft; Z01.811 Encounter for preprocedural respiratory examination; Z01.818 Encounter for other preprocedural examination; Z01.812 Encounter for preprocedural laboratory examination
CPT/HCPCS: 71045; 74174; 80048; 81001; 82810; 83036; 85025; 85610; 85730; 86850; 86900; 86901; 87641; 93005; 93460; 93880; 94010; 99152; 99153; C1769; C1893; J1644; J2250; Q9967

== ENCOUNTER → 2017-12-08 | Outpatient (CLI) | payer OTHER ==
[~2017-12-08] MED LIST changes: +ABIL10TA8 PO; -ARIC5TAB PO; -BUPR-197 PO; +BUSP15TA PO; +CALC12502 PO; +ECASA81 PO; +FLUO10TA PO; -LATU80TA PO; -LEVO.05 PO; +LEVO.125 PO; +LOVA10TA PO; +MIRT1TAB PO; +MULT-65 PO; +OMEGCAP PO; -PRAV40TA2 PO; -PROC10TA4 PO; +VITA200013
[2017-12-08 11:39] LABS: BASOPHIL # 0.1 TH/MM3 (0-0.2); BASOPHIL % 0.8 % (0.0-2.0); EOSINOPHIL # 0.6 TH/MM3 (0-0.4); EOSINOPHIL % 6.1 % (0.0-4.0); HEMATOCRIT 39.4 % (35.0-46.0); HEMOGLOBIN 13.2 GM/DL (11.6-15.3); LYMPH % 25.4 % (9.0-44.0); LYMPHOCYTE # 2.3 TH/MM3 (1.0-4.8); MEAN CELL VOLUME 93.5 FL (80.0-100.0); MEAN CORPUSCULAR HEMOGLOBIN 31.3 PG (27.0-34.0); MEAN CORPUSCULAR HGB CONC 33.4 % (32.0-36.0); MEAN PLATELET VOLUME 8.8 FL (7.0-11.0); MONO % 12.3 % (0.0-8.0); MONOCYTE # 1.1 TH/MM3 (0-0.9); NEUT % 55.4 % (16.0-70.0); PLATELET COUNT 283 TH/MM3 (150-450); RED BLOOD COUNT 4.21 MIL/MM3 (4.00-5.30); RED CELL DISTRIBUTION WIDTH 13.7 % (11.6-17.2); WHITE BLOOD COUNT 9.1 TH/MM3 (4.0-11.0)
[2017-12-08 12:09] LABS: BICARBONATE 26.4 MEQ/L (21.0-32.0); CALCIUM 9.5 MG/DL (8.5-10.1); CREATININE 0.92 MG/DL (0.50-1.00)
== END ==
LOC: CLAB 11:03
PROVIDERS: ATTEND Internal Medicine
DX: Z01.812 Encounter for preprocedural laboratory examination (principal); I35.0 Nonrheumatic aortic (valve) stenosis
CPT/HCPCS: 36415; 80048; 85025; 85610; 86850; 86900; 86901

== ENCOUNTER 2017-12-10 05:31 | Inpatient (IN) | payer OTHER, MEDICARE ==
[~2017-12-10] VITALS: Ht 167.6 cm; Wt 60.0 kg
[2017-12-10] VITALS (9 sets, daily range): BP systolic 137–164; BP diastolic 51–85; PULSE 82–100; RESP 16–20; TEMP 94.7–98.3; O2SAT 95–99
[~2017-12-10 05:31] MED LIST changes: -ECASA81 PO; -FLUO10TA PO
[2017-12-10] MEDS ORDERED: CHLORHEXIDINE GLUCONATE 2 % 1 PACK (2 CLOTHS) TOPICAL PRN ×2 (06:00)
[2017-12-10] MEDS ORDERED: MUPIROCIN 2% OINT 1 APPLIC/GM SYRINGE EACH NARE PRN (06:00)
[2017-12-10] MEDS ORDERED: ceFAZolin 2 GM PREMIX 50 ML IV PRN (06:00)
[2017-12-10] MEDS ORDERED: SODIUM CHLORID 0.9% 500 ML IV PRN (06:00)
[2017-12-10] MEDS: SODIUM CHLOR 0.9% 1000 ML 1,000 ML IV SCH ×3 (06:00→21:19)
[2017-12-10] MEDS ORDERED: POVIDONE IODINE 5% (ANTISEPSIS KIT) EACH NARE PRN (06:00)
[2017-12-10] MEDS ORDERED: INSULIN HUMAN REGULAR 1,000 UNITS/10 ML VIAL SQ PRN (06:00)
[2017-12-10] MEDS ORDERED: ASPIRIN 325 MG TAB PO PRN (06:00)
[2017-12-10] MEDS ORDERED: POVIDONE IODINE 5% (ANTISEPSIS KIT) 4 APPLICATIONS EACH NARE PRN (06:00)
[2017-12-10] MEDS ORDERED: LACTATED RINGER'S 1000 ML IV PRN (06:00)
[2017-12-10] MEDS ORDERED: METOPROLOL TARTRATE 25 MG TAB PO PRN (06:00)
[2017-12-10] MEDS ORDERED: HEPARIN SODIUM - IV 10,000 UNITS/10 ML VIAL ONE (06:29)
[2017-12-10] MEDS ORDERED: PROTAMINE SULFATE 50 MG/5 ML VIAL ONE (06:29)
[2017-12-10] MEDS ORDERED: ECASA81 PO (07:09)
[2017-12-10] MEDS ORDERED: FLUO10TA PO (07:09)
[2017-12-10] MEDS ORDERED: MIDAZOLAM HCL 2 MG/2 ML VIAL ONE (07:24)
--- NOTE | 2017-12-10 08:05 | MH ---
cc: Cody,Ferny Sheppard,Kendall Ty,Selwyn Solorio,Enma CHUN DATE OF ADMISSION: 12/10/2017 INDICATION FOR ADMISSION: Severe aortic valve stenosis. PLANNED OPERATIVE PROCEDURE: Transcatheter aortic valve replacement. REFERRING PHYSICIAN: Dr. Kendall Sheppard. PRIMARY CARE DOCTOR: Dr. Sedrick Ty. HISTORY OF PRESENT ILLNESS: This is a 62-year-old female with a past medical history of severe aortic valve stenosis, bipolar disorder, depression, Hodgkin's lymphoma, status post mantle radiation and splenectomy, status post partial sternotomy. The patient was evaluated back in October secondary to severe aortic valve stenosis and symptomatic shortness of breath and fatigue. She underwent cardiac catheterization and referred to Dr. Navarrete for consideration of surgical aortic valve replacement. Due to her history of lymphoma and mantle radiation, she was felt to be a high risk surgical procedure with a hostile chest and therefore referred for transcatheter aortic valve replacement consideration. She had a full evaluation and workup and is now here for anticipated procedure today. PAST MEDICAL HISTORY: Aortic stenosis, aortic regurgitation, bipolar disorder, depression, Hodgkin's lymphoma, hypertension, hyperlipidemia, hypothyroidism, skin cancer. ALLERGIES: NO KNOWN DRUG ALLERGIES. HOME MEDICATIONS: 1. Abilify. 2. Aspirin. 3. Buspar. 4. Fluoxetine. 5. Levothyroxine. 6. Lovastatin. 7. Mirtazapine. FAMILY HISTORY: Denies any family history of early coronary disease or sudden cardiac . SOCIAL HISTORY: Lives alone, but does have a sister visiting. There is remote tobacco and alcohol use. REVIEW OF SYSTEMS: A 12-point review of system was performed, negative unless otherwise noted in history of present illness. PHYSICAL EXAMINATION: VITAL SIGNS: Temperature is 98, pulse is 94, blood pressure 164/85 mmHg. GENERAL: Alert and oriented x 3, in no acute distress. HEENT: Shows pupils reactive to light and accommodation. Extraocular movements are intact. NECK: No elevation of jugular venous distention. No thyromegaly. No lymphadenopathy. No carotid bruits. LUNGS: Clear to auscultation bilaterally. CARDIOVASCULAR: Regular rate and rhythm with a III/ crescendo-decrescendo murmur at the left sternal border radiating to the carotids. ABDOMEN: Nontender, nondistended with good bowel sounds. No hepatosplenomegaly. EXTREMITIES: Show no clubbing, cyanosis or edema. Good peripheral pulses. NEUROLOGIC: Cranial nerves intact. Motor and sensory grossly intact. LABORATORY DATA: WBC 9.1, hemoglobin is 13.2, platelet count is 283. INR is 1.0. Sodium 139, potassium 4.5, BUN 16, creatinine 0.92. ASSESSMENT: 1. Severe aortic valve stenosis. 2. Hostile chest secondary to history of lymphoma and mantle sternal radiation and partial sternotomy. PLAN: Risks, benefits, and alternatives were discussed with the patient regarding the procedure. The patient understands and consents to proceed. Risks include potential for stroke internal bleeding, hematoma, and . The patient was seen and evaluated by Dr. Enma Solorio prior to the procedure for potential risk of post-procedural requirement of pacemaker. We will plan for transcatheter aortic valve replacement. The patient will be transferred to the intensive care unit post-procedure. ADDENDUM: PREOPERATIVE EVALUATION: STS score calculated 5%, [place] Heart Association class 3 symptoms. BMI 20.7. She was a 2/4 frailty scale. Electrocardiogram shows sinus rhythm with first degree atrioventricular block. Pulmonary function testing performed on 10/27/2017, showed FEV 1 of 0.89, consistent with severe restrictive ventilatory defect. Echocardiogram performed on 10/08/2017, shows a jet velocity of 4.55 meters per second with a mean gradient of 46 mmHg and a calculated aortic valve area of 0.66 cm2. Ejection fraction of 65%. There is moderate aortic insufficiency and mild mitral and tricuspid valve regurgitation. Cardiac catheterization 10/28/2017, shows no significant obstructive disease. A CT analysis performed on 10/28/2017, shows a short annulus diameter of 18.7 mm and a long annulus diameter of 22.4 mm, inner area calculated at 336.4 mm. Aortic root sinus of Valsalva 29.4 mm with the sinotubular junction diameter of 27.0 mm. Left coronary height 11.5 mm and right coronary height 17.6 mm. Bilateral iliacs show acceptable minimal luminal diameter of 7.4 on the right and 7.1 mm on the left. PLAN: Plan for implantation of an Luevano S3-23 mm bioprosthetic transcatheter aortic valve replacement. MD ARPIT Camacho/CINTHYA , 07:32 AM , 08:04 AM KELLI
--- NOTE | 2017-12-10 09:19 | PD.PROCEDR ---
Procedure Note Procedure Procedure: Transesophageal Echocardiography Diagnosis: Severe aortic stenosis Indications: Perioperative planning for transcatheter aortic valve replacement Consent: Obtained Anesthesia: General endotracheal anesthesia Description of the Procedure: The patient was sedated and mechanically ventilated. The echo probe was inserted easily and without resistance. At the conclusion of the procedure, the echo probe was removed. Please see detailed echocardiogram report for formal findings. Preliminary Findings (not confirmed): Pre-procedure: 1) grossly preserved biventricular function 2) severe aortic stenosis 3) moderate aortic insufficiency 4) mild mitral regurgitation 5) evidence of left atrial hypertension 6) small [id number] continuous intra-atrial shunt by color flow Doppler 7) no pericardial effusion Post-procedure: 1) s/p successful placement of transcatheter aortic valve 2) no evidence of bioprosthetic valve stenosis 3) trace perivalvular leak 4) no pericardial effusion The patient tolerated the procedure well with no hemodynamic instability. There were no immediate complications noted. There was minimal EBL. I personally performed the procedure. Fitz Real MD Dec 10, 2017 09:19
[2017-12-10] MEDS ORDERED: IOHEXOL 350 MG/ML 100 ML BTL (for RAD DIAG) IVCONTRAST ONE (09:27)
[2017-12-10] MEDS ORDERED: MAGNESIUM SULFATE INJ 2 GM in SODIUM CHLORIDE 0.9% INJ 96 ML IV PRN (09:30)
[2017-12-10] MEDS ORDERED: POTASSIUM CHLORIDE 25 MEQ EFFERVESCENT TAB PO PRN (09:30)
[2017-12-10] MEDS ORDERED: POTASSIUM PHOSPHATE INJ 30 MMOL in SODIUM CHLOR 0.9% 250 ML INJ 250 ML IV PRN (09:30)
[2017-12-10] MEDS ORDERED: POTASSIUM PHOSPHATE MONOBASIC 500 MG TAB PO PRN (09:30)
[2017-12-10] MEDS ORDERED: SODIUM PHOSPHATE INJ 30 MMOL in SODIUM CHLOR 0.9% 250 ML INJ 240 ML IV PRN (09:30)
[2017-12-10] MEDS ORDERED: POTASSIUM CHLOR 20 MEQ PREMIX 100 ML IV PRN ×2 (09:30)
[2017-12-10] MEDS ORDERED: POTASSIUM CHLOR 40 MEQ PREMIX 100 ML IV PRN ×2 (09:30)
[2017-12-10] MEDS ORDERED: MAGNESIUM SULFATE INJ 4 GM in SODIUM CHLORIDE 0.9% INJ 92 ML IV PRN (09:30)
[2017-12-10] MEDS ORDERED: MAGNESIUM OXIDE 400 MG TAB PO PRN (09:30)
[2017-12-10] MEDS ORDERED: POTASSIUM PHOSPHATE MONOBASIC 500 MG TAB PO/TUBE PRN (09:30)
--- NOTE | 2017-12-10 09:31 | PD.CONS ---
[facility] Service Critical Care Medicine Consult Requested By Dr. Ross Reason for Consult perioperative management of medical comorbidities Primary Care Physician Silas Berrios MD History of Present Illness This is a 62-year-old female with a history of bipolar disorder and prior Hodgkin's lymphoma status post radiation therapy to the chest who presents for elective transcatheter aortic valve replacement. She underwent uncomplicated placement via iliac access. She was extubated the end of the case and taken to the CVICU in stable condition. Due to her arousal from anesthesia, complete review of systems is unobtainable. Of note, she denies nausea, vomiting, headache, eye pain, chest pain, shortness of breath. Review of Systems ROS Limitations: Clinical Condition, Altered Mental Status Eyes: DENIES: Eye pain Respiratory: DENIES: Shortness of breath Cardiovascular: DENIES: Chest pain Gastrointestinal: DENIES: Nausea, Vomiting Neurologic: DENIES: Headache ROS Arousing from anesthesia Past Family Social History Allergies: Coded Allergies: *MDRO Multi-Drug Resistant Organism (Verified Allergy, Unknown, 10/28/17) MRSA 07/2010 Past Medical History Severe symptomatically aortic stenosis Moderate aortic regurgitation First-degree AV block Mild mitral regurgitation Bipolar disorder, prior history of katrina Prior psych hospitalizations for katrina Depression Hodgkin's lymphoma Splenectomy Partial sternotomy Hyperlipidemia Hypertension Hypothyroidism 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 Past Surgical History Colonoscopy Hysterectomy Oophorectomy Splenectomy Vocal cord biopsy Partial sternotomy with mass removal Reported Medications Fluoxetine (Fluoxetine HCl) 10 Mg Tab 10 Mg PO DAILY Aspirin DR (Aspirin) 81 Mg Tabdr 81 Mg PO DAILY Calcium (Oyster Shell) Unknown Strength Tab 1 Tab PO DAILY Lovastatin 10 Mg Tab 10 Mg PO DAILY Multi-Vitamin Daily (Multiple Vitamin) 1 Tab Tab 1 Tab PO DAILY Vitamin D (Cholecalciferol) 2,000 Unit Cap Abilify (Aripiprazole) 10 Mg Tab 10 Mg PO DAILY Synthroid (Levothyroxine Sodium) 125 Mcg Tab 125 Mcg PO DAILY Buspirone (Buspirone HCl) 15 Mg Tab 15 Mg PO BID Lamictal (Lamotrigine) 25 Mg Tab 25 Mg PO DAILY Mirtazapine 7.5 Mg Tab 7.5 Mg PO HS Active Ordered Medications See MAR Family History Father with lung cancer Mother with breast cancer Alzheimer's Social History Remote smoking history. Rare EtOH use Denies other drugs Physical Exam Vital Signs Vital Signs Date Time Temp Pulse Resp B/P (MAP) Pulse Ox O2 Delivery O2 Flow Rate FiO2 12/10/17 06:07 98.0 94 18 164/85 (111) 98 Physical Exam GENERAL: middle-aged female, lying in bed, arousing from anesthesia HEENT: Normocephalic. Atraumatic. Pupils equal, round, reactive, conjugate. Mucous membranes are moist NECK: Trachea is midline. There is no JVD. right IJ introducer sheath with transvenous pacer in place, site is clean and dry, dressing intact. CHEST: unlabored. equal chest rise. nc o2. CARDIOVASCULAR: normal rate, regular rhythm. Transvenous pacer is set VVI at a backup rate of 50. not currently paced. ABDOMEN: Soft, nontender, nondistended. No guarding. MUSCULOSKELETAL: Pulses 2+. No peripheral edema. bilateral groin sites are clean and dry, no evidence of hematoma, dressing intact. distal LE pulses are Dopplerable. NEUROLOGICAL: RASS -2. Arousing from anesthesia. follows commands. moves all extremities. no focal deficits. Assessment and Plan Assessment and Plan Assessment: 62yF POD 0 s/p TAVR via common iliac access. recovering on pathway. close monitoring overnight in CVICU. mivf, close uop monitoring. s/p TAVR 12/10 with common iliac access - mivf - close uop monitoring - keep pacer back-up rate 50. - close neurovascular checks. - anticoagulation per Dr. Ross Hypertension - add back home anti-hypertensives as needed - goal sbp < 180 Bipolar Disorder Depression history of katrina - add back home psych meds Hyperlipidemia - add back home statin Hypothyroidism - restart home synthroid pulmonary toilet wean o2 by nc for goal spo2 > 90% advance diet as tolerated Critical care medicine will follow along with you as long as patient remains in the CVICU Fitz Real MD Dec 10, 2017 09:31
[2017-12-10] MEDS ORDERED: SODIUM CHLOR 0.9% 1000 ML INJ 1,000 ML IV SCH (09:33)
[2017-12-10] MEDS ORDERED: GLUCAGON 1 MG/ML VIAL OTHER PRN (09:45)
[2017-12-10] MEDS ORDERED: MISC INFORMATION OTHER ONE (09:45)
[2017-12-10] MEDS ORDERED: ACETAMINOPHEN 325 MG TAB PO PRN (09:45)
[2017-12-10] MEDS ORDERED: BENZOCAINE-MENTHOL (SUGAR FREE) 15 MG-3.6 MG LOZENGE BUCCAL PRN (09:45)
[2017-12-10] MEDS ORDERED: ATROPINE SULFATE 1 MG/ML VIAL IV PUSH PRN (09:45)
[2017-12-10] MEDS ORDERED: DEXTROSE 50% IN WATER 50 ML VIAL(D50) IV PUSH PRN (09:45)
--- NOTE | 2017-12-10 10:30 | MA ---
cc: Ferny Ross MD DATE: 12/10/2017 PROCEDURE PERFORMED: Transcatheter aortic valve replacement. MATERIALS PLANNER: Ferny Ross MD, [facility] PRIMARY CARDIOTHORACIC SURGEON: Horacio Navarrete MD SECONDARY CARDIOTHORACIC SURGEON: Mignon Keating MD REFERRING DEVELOPMENT TECHNICIAN: Kendall Sheppard MD PROCEDURES PERFORMED: 1. Fluoroscopy with interpretation. 2. Ascending aortography. 3. Temporary transvenous pacemaker placement. 4. Transesophageal echocardiogram. 5. Aortic valvuloplasty. 6. Transcatheter aortic valve replacement with Luevano S3-23 mm bioprosthetic valve. METHOD: Risks, benefits, and alternatives discussed with the patient. The patient understood and consented to the procedure The patient was brought to catheterization lab and placed on the catheterization table. The right groin was prepped and draped in sterile fashion. The right groin was anesthetized with 2% lidocaine. Right common femoral artery was cannulated and under fluoroscopic and angiographic guidance, a micropuncture sheath was placed, followed by an 8-Tongan 11 cm sheath. Left femoral vein was accessed and a 5-Tongan 11 cm sheath was placed. Left femoral artery was accessed and a 5-Tongan 11 cm sheath was placed. TEMPORARY TRANSVENOUS PACEMAKER PLACEMENT: Internal jugular access was obtained and a 5-Tongan balloon tipped temporary transvenous pacemaker was advanced to the right ventricular apex with appropriate pacing and capture. TRANSESOPHAGEAL ECHOCARDIOGRAM: Please see full report separately. ASCENDING AORTOGRAPHY: A 5-Tongan pigtail catheter was advanced to ascending aorta through the left common femoral artery sheath and ascending aortography performed at the level of the aortic valve. The leaflets appear to be in a good annular plane and individual leaflets identified. There was moderate aortic insufficiency noted 3 plus. Ascending aorta was not significantly dilated. Working angle was left anterior oblique 12 and caudal 2. TRANSCATHETER AORTIC VALVE REPLACEMENT: A 6-Tongan AL1 catheter was advanced to ascending aorta. A 0.035-inch Amplatz straight tipped wire was then advanced across the aortic valve with some difficulty. AL1 catheter was advanced in the left ventricle. A 0.035-inch standard 260 J wire was then advanced into the left ventricular apex and the AL1 catheter removed. A 6-Tongan pigtail catheter was then advanced into the left ventricular apex and J wire removed. A CordExploretrip Confida wire was then advanced into the left ventricular apex through the 6-Tongan pigtail catheter and removed. 20 mL Luevano aortic valvuloplasty balloon was then advanced up and over the Confida wire into the ascending aorta. The balloon was advanced across the aortic valve. Under rapid pacing, the aortic valvuloplasty balloon was then deployed. Repeat transesophageal echocardiogram showed severe aortic insufficiency. The patient tolerated the aortic valvuloplasty well with hemodynamic stability. The valvuloplasty balloon was removed and Confida wire was left in place. A 23 mm Luevano S3 valve was then advanced up and over the Amplatz Super Stiff wire and into the ascending arch. The device was prepped and the aortic valve bioprosthesis advanced into the annulus of the aortic valve. Under fluoroscopic transesophageal guidance and rapid pacing, the aortic valve was then deployed. Repeat transesophageal echocardiography revealed trace paravalvular leak. The device was well seated and there was no significant aortic valve gradient. The wire was removed Two Perclose devices were then deployed in the right common femoral artery with good hemostasis. Two 5-Tongan Mynx devices were deployed in the left common femoral vein and artery with good hemostasis. Heparin had been administered throughout the entire procedure to maintain appropriate anticoagulation. CONCLUSIONS: 1. Successful transcatheter aortic valve replacement with an Luevano S3-23 mm bioprosthetic valve. 2. Successful aortic valvuloplasty. 3. Normal ascending aorta. 4. Successful temporary transvenous pacemaker placement and utilization. RECOMMENDATIONS: The patient will be monitored closely for any postprocedural complications and transferred to the intensive care unit for recovery. We will initiate Plavix. We will monitor heart rhythm and consult electrophysiology. We will followup with a chest x-ray and tomorrow a limited transthoracic echocardiogram. ADDENDUM: Post-valve deployment intraoperative transesophageal echocardiogram findings: 1. Post-aortic valve area of 1.28 cm2. 2. Post-implant mean aortic valve gradient 3 mmHg. 3. Post-implant peak velocity 1.27 meters per second. 4. Aortic insufficiency showed trace. Ferny Ross MD ARPIT/TL , 09:56 AM , 10:29 AM
--- NOTE | 2017-12-10 10:31 | PD.OP ---
cc: Horacio Navarrete MD; Ferny Ross MD; Kendall Sheppard MD Operative Report Date of Surgery: Dec 10, 2017 Preoperative Diagnosis: Postoperative Diagnosis: Procedure: 1. Transcatheter Aortic Valve Replacement (TAVR) with an Luevano 23 mm Ashley 3 Tissue Valve. 2. Balloon Aortic Valvuloplasty 3. Aortogram. 4. Percutaneous Left Femoral Vein Access and Bilateral Common Femoral Artery Access 5. Perclose closure of Right Common Femoral artery. 6. Mynx closure of Left Common Femoral artery. 7. Fluoroscopy Surgeon: Horacio Ross Dry Cleaning Teacher(s): Eliceo Keating Operation and Findings: PREOPERATIVE DIAGNOSIS: 1. Severe Symptomatic Aortic stenosis. 2. CHF 3. Severe Aortic Insufficiency 4. Lymphoma - s/p Radiation and Partial Sternotomy POSTOPERATIVE DIAGNOSIS: Same OPERATION PERFORMED: 1. Transcatheter Aortic Valve Replacement (TAVR) with an Luevano 23 mm Ashley 3 Tissue Valve. 2. Balloon Aortic Valvuloplasty 3. Aortogram. 4. Percutaneous Left Femoral Vein Access and Bilateral Common Femoral Artery Access 5. Perclose closure of Right Common Femoral artery. 6. Mynx closure of Left Common Femoral artery. 7. Fluoroscopy SURGEON: Horacio Navarrete MD CO-SURGEON: Ferny Ross MD SLEEPING BAG FILLER SURGEON: Mignon Keating MD MAINTENANCE MECHANIC TELEPHONE: KISHORE Wilson MD ANESTHESIA: GETA PROCEDURE: The risks, benefits, complications, treatment options, and expected outcomes were discussed with the patient. The possibilities of reaction to medication, pulmonary aspiration, perforation of viscus, bleeding, recurrent infection, the need for additional procedures, failure to diagnose a condition, and creating a complication requiring transfusion or operation were discussed with the patient. The patient concurred with the proposed plan, giving informed consent. The site of surgery properly noted/marked. The patient was taken to the hybrid operating room and the procedure verified as Transcatheter Aortic Valve Replacement. A Time Out was held and the above information confirmed. Standard monitoring lines and Woo catheter were placed. General anesthesia was induced. The patient was prepped and draped in a sterile fashion. Initially, the left femoral arterial and venous access was acquired using a Seldinger percutaneous technique. The details of this procedure were dictated under separate note by cardiology. Once a pigtail was positioned in the aortic annulus and a temporary transvenous pacemaker wire was placed in the right ventricular apex and tested, the right femoral artery was accessed using a needle followed by a guidewire under fluoroscopic guidance. The patient was heparinized and Perclose devices deployed for later closure. Serial dilators were used to dilate the left femoral artery to 14 Tamazight caliber. The Luevano sheath was then inserted into the external iliac artery up to the distal abdominal aorta. Arch aortography was performed to define the implant view. A balloon aortic valvuloplasty was then performed using a 20 x 4 balloon with rapid pacing. A 23 Luevano Ashley 3 transcatheter aortic valve was then positioned in the annulus and deployed with the patient being rapidly paced. Following deployment , the valve apparatus was withdrawn and arch aortography and RIC were performed to assess the valve. The valve had no significant perivalvular leaks. Gradients were then measured and the sheath was removed with securing the Perclose sutures for hemostasis. Protamine was administered. The left Arterial and Venous access sites were closed using the Mynx device. Sterile dressings were placed. At the end of the operation, all sponge, instruments, and needle counts were correct. The patient was transferred to the CVICU in stable condition. Findings: Trace PVL Implants: 23 Ashley 3 tissue valve Complications: None Disposition: to CVICU in stable condition Horacio Navarrete MD Dec 10, 2017 10:31
[2017-12-10] MEDS ORDERED: CLOPIDOGREL 300 MG TAB PO ONE (11:00)
--- NOTE | 2017-12-10 11:01 | RADRPT ---
EXAM DATE: 12/10/2017 10:47 AM EDT AGE/SEX: 62 years / Female INDICATIONS: TAVR CLINICAL DATA: This is the patient's initial encounter. Patient reports that signs and symptoms have been present for 1 day and indicates a pain score of 0/10. MEDICAL/SURGICAL HISTORY: None. Umbilical hernia repair. COMPARISON: [facility] [place], CHEST SINGLE AP, 10/28/2017. . FINDINGS: A single AP view of the chest demonstrates a stent mounted aortic valve. Top normal heart size. Chron ic elevation of the left hemidiaphragm with minimal left basilar atelectasis. Mild interstitial promi nence throughout the lungs. No effusions. Surgical clips overlie the mediastinum. A scoliotic spine. CONCLUSION: 1. Stent mounted aortic valve. 2. Mild interstitial prominence to the lungs which could relate to mild interstitial edema. No effus ions. Electronically signed by: Refugio Cruz MD 12/10/2017 10:59 AM EDT
[2017-12-10 11:14] LABS: HEMATOCRIT 36.1 % (35.0-46.0); HEMOGLOBIN 12.1 GM/DL (11.6-15.3); MEAN CELL VOLUME 93.5 FL (80.0-100.0); MEAN CORPUSCULAR HEMOGLOBIN 31.4 PG (27.0-34.0); MEAN CORPUSCULAR HGB CONC 33.6 % (32.0-36.0); MEAN PLATELET VOLUME 9.3 FL (7.0-11.0); PLATELET COUNT 211 TH/MM3 (150-450); RED BLOOD COUNT 3.86 MIL/MM3 (4.00-5.30); RED CELL DISTRIBUTION WIDTH 13.9 % (11.6-17.2); WHITE BLOOD COUNT 10.7 TH/MM3 (4.0-11.0)
[2017-12-10 11:44] LABS: BICARBONATE 25.2 MEQ/L (21.0-32.0); CALCIUM 8.4 MG/DL (8.5-10.1); CREATININE 0.76 MG/DL (0.50-1.00)
[2017-12-10] MEDS ORDERED: ROCURONIUM INJ 50 MG/5 ML SYRINGE IV PUSH ONE (12:00)
[2017-12-10] MEDS ORDERED: LIDOCAINE HCL 1% PF 5 ML SYRINGE OTHER ONE (12:00)
[2017-12-10] MEDS ORDERED: GLYCOPYRROLATE 1 MG/5 ML SYRINGE IV PUSH ONE (12:00)
[2017-12-10] MEDS ORDERED: LACTATED RINGER'S 1000 ML INJ 1,000 ML IV ONE (12:00)
[2017-12-10] MEDS ORDERED: NORMOSOL R INJ 1,000 ML IV ONE (12:00)
[2017-12-10] MEDS ORDERED: SODIUM CHLORID 0.9% 500 ML INJ 1,000 ML IV ONE (12:00)
[2017-12-10] MEDS ORDERED: NEOSTIGMINE 5 MG/5 ML SYRINGE IV PUSH ONE (12:00)
[2017-12-10] MEDS ORDERED: PROPOFOL 200 MG/20 ML AMP IV ONE (12:00)
[2017-12-10] MEDS ORDERED: PHENYLEPH/NS 1000 MCG/10 ML SYR IV ONE (12:00)
[2017-12-10] MEDS ORDERED: PHENYLEPHRINE HCL 10 MG/ML VIAL IV ONE (12:00)
[2017-12-10] MEDS ORDERED: SODIUM CHLOR 0.9% 250 ML INJ 250 ML IV ONE (12:00)
--- NOTE | 2017-12-10 18:27 | EKG ---
Date Performed: 12/10/2017 Time Performed: 06:25:00 PTAGE: 62 years EKG: Sinus rhythm with 1st degree A-V block. Possible left atrial abnormality Leftward axis Possible anterior infarct - age undetermined Low QRS voltages in precordial leads Abnormal ECG PREVIOUS TRACING : 10/28/2017 05.57 Since the previous tracing, no significant change noted DOCTOR: Per Dinero Interpretating Date/Time 12/10/2017 18:25:28
[2017-12-10] MEDS ORDERED: MIRTAZAPINE 15 MG TAB PO SCH (21:00)
[2017-12-10] MEDS: busPIRone HCL 5 MG TAB PO SCH (21:18)
[2017-12-11] VITALS: BP_SYST 114; BP_SYST 120; BP_DIAS 57; BP_DIAS 82; PULSE 100; PULSE 101; RESP 20; O2SAT 95
[2017-12-11 04:00] VITALS: BP_SYST 149; BP_SYST 159; BP_DIAS 71; BP_DIAS 84; PULSE 106; PULSE 107; RESP 20; TEMP 99.8; O2SAT 94
[2017-12-11 05:36] LABS: HEMATOCRIT 35.2 % (35.0-46.0); HEMOGLOBIN 11.7 GM/DL (11.6-15.3); MEAN CELL VOLUME 92.7 FL (80.0-100.0); MEAN CORPUSCULAR HEMOGLOBIN 30.8 PG (27.0-34.0); MEAN CORPUSCULAR HGB CONC 33.2 % (32.0-36.0); MEAN PLATELET VOLUME 8.9 FL (7.0-11.0); PLATELET COUNT 204 TH/MM3 (150-450); RED CELL DISTRIBUTION WIDTH 13.8 % (11.6-17.2); WHITE BLOOD COUNT 12.2 TH/MM3 (4.0-11.0)
[2017-12-11 05:44] LABS: BICARBONATE 26.2 MEQ/L (21.0-32.0); CALCIUM 8.6 MG/DL (8.5-10.1); CREATININE 0.7 MG/DL (0.50-1.00)
[2017-12-11] MEDS: SODIUM CHLOR 0.9% 1000 ML 1,000 ML IV SCH (06:00)
[2017-12-11 07:00] VITALS: BP 116/78; PULSE 96; PULSE 97; RESP 18; TEMP 99; O2SAT 93
[2017-12-11 08:02] VITALS: O2SAT 97
--- NOTE | 2017-12-11 08:17 | HHI.DS ---
Discharge Summary Admission Date Dec 10, 2017 at 05:31 Discharge Date: Dec 11, 2017 Admitting Diagnosis severe aortic stenosis Procedures transcatheter aortic valve replacement Brief History presented with SOB echo with severe CBC/BMP: 12/11/17 0415 12/11/17 0415 Significant Findings Laboratory Tests Test 12/10/17 10:22 12/11/17 04:15 Red Blood Count 3.86 MIL/MM3 (4.00-5.30) 3.80 MIL/MM3 (4.00-5.30) Random Glucose 111 MG/DL (74-106) 107 MG/DL (74-106) Calcium Level 8.4 MG/DL (8.5-10.1) Estimat Glomerular Filtration Rate 77 ML/MIN (>89) 85 ML/MIN (>89) White Blood Count 12.2 TH/MM3 (4.0-11.0) Imaging Last Impressions Chest X-Ray 12/10/17 0000 Signed Impressions: CONCLUSION: 1. Stent mounted aortic valve. 2. Mild interstitial prominence to the lungs which could relate to mild inters titial edema. No effusions. PE at Discharge GENERAL: SKIN: Warm and dry. HEAD: Normocephalic. EYES: No scleral icterus. No injection or drainage. NECK: Supple, trachea midline. No JVD or lymphadenopathy. CARDIOVASCULAR: Regular rate and rhythm 2/6 SM RESPIRATORY: Breath sounds equal bilaterally. No accessory muscle use. GASTROINTESTINAL: Abdomen soft, non-tender, nondistended. MUSCULOSKELETAL: No cyanosis, or edema. BACK: Nontender without obvious deformity. No CVA tenderness. Hospital Course Patient underwent TAVR postoperative course uncomplicated severe - s/p TAVR acute diastolic CHF - well compensated DC planning for later today Pt Condition on Discharge: Good Discharge Disposition: Discharge Home Discharge Instructions DIET: Follow Instructions for: Heart Healthy Diet Activities you can perform: Weight Bearing as Sandra Follow up Referrals: Cardiology - 4 Weeks @ [facility] New Medications: Clopidogrel (Clopidogrel) 75 Mg Tab 75 MG PO DAILY for Blood Clot Prevention, #30 TAB 3 Refills Continued Medications: Aripiprazole (Abilify) 10 Mg Tab 10 MG PO DAILY, #30 TAB [address] (Aspirin DR) 81 Mg Tabdr 81 MG PO DAILY, TAB 0 Refills Buspirone (Buspirone) 15 Mg Tab 15 MG PO BID for Anxiety, TAB 0 Refills Cholecalciferol (Vitamin D) 2,000 Unit Cap CAP Fluoxetine (Fluoxetine) 10 Mg Tab 10 MG PO DAILY, #30 TAB 0 Refills Lamotrigine (Lamictal) 25 Mg Tab 25 MG PO DAILY for Control Seizures, #30 TAB 0 Refills Levothyroxine (Synthroid) 125 Mcg Tab 125 MCG PO DAILY for Thyroid, #30 TAB 0 Refills Lovastatin (Lovastatin) 10 Mg Tab 10 MG PO DAILY for Cholesterol Management, #30 TAB 0 Refills Mirtazapine (Mirtazapine) 7.5 Mg Tab 7.5 MG PO HS for Depression Control, #30 TAB 0 Refills Multiple Vitamin (Multi-Vitamin Daily) 1 Tab Tab 1 TAB PO DAILY for Nutritional Supplement, TAB 0 Refills Oyster Shell (Calcium) Unknown Strength Tab 1 TAB PO DAILY for Nutritional Supplement Ferny Ross MD Dec 11, 2017 08:17
[2017-12-11] MEDS ORDERED: CLOP75TA PO (08:20)
[2017-12-11] MEDS ORDERED: FUROSEMIDE 20 MG TAB PO ONE (08:30)
[2017-12-11] MEDS: busPIRone HCL 5 MG TAB PO SCH (08:43)
[2017-12-11] MEDS ORDERED: lamoTRIgine 25 MG TAB PO SCH (09:00)
[2017-12-11] MEDS ORDERED: CLOPIDOGREL 75 MG TAB PO SCH (09:00)
[2017-12-11] MEDS ORDERED: LEVOTHYROXINE SODIUM 125 MCG TAB PO SCH (09:00)
[2017-12-11] MEDS ORDERED: FLUoxetine HCL 10 MG CAP PO SCH (09:00)
[2017-12-11] MEDS ORDERED: ASPIRIN EC 81 MG TABEC PO SCH (09:00)
[2017-12-11] MEDS ORDERED: PRAVASTATIN SOD 10 MG TAB PO SCH (09:00)
[2017-12-11] MEDS ORDERED: ASPIRIN 81 MG CHEW TAB PO SCH (09:00)
[2017-12-11] MEDS ORDERED: ARIPiprazole 10 MG TAB PO SCH (09:00)
--- NOTE | 2017-12-11 09:25 | PD.CAR.PN ---
CVT Progress Note Subjective/Hospital Course: 62-year-old female with a history of bipolar disorder and prior Hodgkin's lymphoma status post radiation therapy to the chest who presents for elective transcatheter aortic valve replacement. She underwent uncomplicated placement via iliac access surgery: 12/10 1. Transcatheter Aortic Valve Replacement (TAVR) with an Luevano 23 mm Ashley 3 Tissue Valve. 2. Balloon Aortic Valvuloplasty 3. Aortogram. 4. Percutaneous Left Femoral Vein Access and Bilateral Common Femoral Artery Access 5. Perclose closure of Right Common Femoral artery. 6. Mynx closure of Left Common Femoral artery. 7. Fluoroscopy 12/11 doing well BP labile, slightly tachycardic receiving some IV fluids being evaluated for possible dc home later today rhythm stable , temp pacer and IJ CVC dc Objective: GENERAL: Awake and alert SKIN: Warm and dry. dressing in place to right IJ area, both groins HEAD: Normocephalic. EYES: No scleral icterus. No injection or drainage. NECK: Supple, trachea midline. No JVD or lymphadenopathy. CARDIOVASCULAR: Regular rate and rhythm without murmurs, gallops, or rubs. good distal pulses in both groins RESPIRATORY: Breath sounds equal bilaterally. No accessory muscle use. GASTROINTESTINAL: Abdomen soft, non-tender, nondistended. MUSCULOSKELETAL: No cyanosis, or edema. BACK: Nontender without obvious deformity. No CVA tenderness. Vital Signs Date Time Temp Pulse Resp B/P (MAP) Pulse Ox O2 Delivery O2 Flow Rate FiO2 12/11/17 08:02 97 21 12/11/17 04:00 94 Room Air 12/11/17 04:00 106 12/11/17 04:00 99.8 107 20 149/84 (105) 94 159/71 (100) 12/11/17 00:00 95 Room Air 12/11/17 00:00 100 12/11/17 00:00 101 20 120/82 (95) 95 114/57 (76) 12/10/17 21:15 97 21 12/10/17 20:00 95 Room Air 12/10/17 20:00 92 12/10/17 20:00 98.3 92 20 137/82 (100) 95 147/62 (90) 12/10/17 15:18 99 Nasal Cannula 4.00 12/10/17 15:17 84 6/6/18 15:16 96 12/10/17 15:12 98.2 96 18 144/51 (82) 98 144/65 (91) 12/10/17 12:12 99 Nasal Cannula 4.00 12/10/17 11:12 100 12/10/17 11:00 84 12/10/17 11:00 95.6 82 18 144/51 (82) 99 147/73 (97) 12/10/17 09:45 94.7 91 16 146/73 (97) 98 161/80 (107) Labs: Laboratory Tests Test 12/11/17 04:15 White Blood Count 12.2 TH/MM3 (4.0-11.0) Red Blood Count 3.80 MIL/MM3 (4.00-5.30) Hemoglobin 11.7 GM/DL (11.6-15.3) Hematocrit 35.2 % (35.0-46.0) Mean Corpuscular Volume 92.7 FL (80.0-100.0) Mean Corpuscular Hemoglobin 30.8 PG (27.0-34.0) Mean Corpuscular Hemoglobin Concent 33.2 % (32.0-36.0) Red Cell Distribution Width 13.8 % (11.6-17.2) Platelet Count 204 TH/MM3 (150-450) Mean Platelet Volume 8.9 FL (7.0-11.0) Blood Urea Nitrogen 10 MG/DL (7-18) Creatinine 0.70 MG/DL (0.50-1.00) Random Glucose 107 MG/DL (74-106) Calcium Level 8.6 MG/DL (8.5-10.1) Sodium Level 138 MEQ/L (136-145) Potassium Level 3.9 MEQ/L (3.5-5.1) Chloride Level 103 MEQ/L (98-107) Carbon Dioxide Level 26.2 MEQ/L (21.0-32.0) Anion Gap 9 MEQ/L (5-15) Estimat Glomerular Filtration Rate 85 ML/MIN (>89) Result Diagram: 12/11/17 0415 12/11/17 0415 (1) S/P TAVR (transcatheter aortic valve replacement) Plan: on ASA, plavix IV fluid x 4 hours possible dc later today defer further orders to Dr Ross, will see prn (2) Aortic stenosis Judith Pruitt Dec 11, 2017 09:25
[2017-12-11 11:00] VITALS: BP 123/83; PULSE 100; PULSE 91; RESP 18; TEMP 98.2; O2SAT 96
--- NOTE | 2017-12-11 11:07 | MB ---
cc: Enma Solorio MD, Stephen E MD DATE: 12/10/2017 REASON FOR CONSULTATION: Evaluation for conduction disease, status post TAVR. HISTORY OF PRESENT ILLNESS: The patient is a 62-year-old female with a history of high blood pressure, bipolar disorder, hyperlipidemia, Hodgkin's lymphoma, aortic stenosis, was admitted for transaortic valve replacement. Post-procedure was consulted for evaluation and management. The chart was reviewed. The patient was evaluated. ALLERGIES: MULTIPLE DRUG RESISTANT ORGANISM. SOCIAL HISTORY: Negative for smoking or drinking. FAMILY HISTORY: Noncontributory to her current medical condition. MEDICATIONS: 1. The patient is on Ancef. 2. Plavix. 3. Potassium. 4. Abilify 10 mg a day. 5. Aspirin 81 mg a day. 6. BuSpar 15 mg twice a day. 7. Prozac 10 mg a day. 8. Lamictal 25 mg a day. 9. Synthroid 125 mcg a day. 10. Remeron 7.5 mg at bedtime. 11. Pravachol 10 mg a day. REVIEW OF SYSTEMS: Currently the patient refers feeling better. Some neck pain, but no chest discomfort. No fever. PHYSICAL EXAMINATION: GENERAL: Alert, fully oriented, pleasant. VITAL SIGNS: Her blood pressure on evaluation 144/51, pulse around 85, respiratory rate 18. LUNGS: Ventilated. CARDIOVASCULAR: S1, S2. Regular. No gallop. Right jugular area with temporary pacemaker. ABDOMEN: Soft. No mass. EXTREMITIES: No edema. ELECTROCARDIOGRAM: Sinus rhythm, long first degree AV block. LABS: Hemoglobin 12.1, white blood cell 10.7. Potassium is 3.8, creatinine is 1.76. ASSESSMENT AND RECOMMENDATIONS: Mrs. Khan is currently stable. There is no change in electrocardiogram compared to the one previous to TAVR. She is stable. The long first degree AV block is chronic. At this point, there is no sign of high-grade conduction. The patient is complaining about discomfort with the central line in the right jugular area. I am going to remove the temporary pacemaker. As mentioned before, no need for pacing support. The patient can be discharged home whenever it is okay with Dr. Ross. Enma Solorio MD HS/TL , 10:28 AM , 11:06 AM
[2017-12-11] MEDS ORDERED: SODIUM CHLOR 0.9% 1000 ML 1,000 ML IV SCH (13:00)
--- NOTE | 2017-12-11 15:21 | EKG ---
Date Performed: 12/10/2017 Time Performed: 17:36:00 PTAGE: 62 years EKG: Sinus rhythm with 1st degree A-V block. Leftward axis Possible anterior infarct - age undetermined Since the prev ious tracing, no significant change noted Abnormal ECG PREVIOUS TRACING : 12/10/2017 06.25 DOCTOR: Desirae Alston Interpretating Date/Time 12/11/2017 15:21:32
--- NOTE | 2017-12-11 15:22 | EKG ---
Date Performed: 12/11/2017 Time Performed: 03:51:08 PTAGE: 62 years EKG: Sinus rhythm with borderline 1st degree A-V block Left axis deviation Possible anterior infarct - age undetermine d Since the previous tracing, no significant change noted Abnormal ECG PREVIOUS TRACING : 12/10/2017 17.36 DOCTOR: Desirae Alston Interpretating Date/Time 12/11/2017 15:21:40
--- NOTE | 2017-12-11 16:27 | ECHRPT ---
Indication: S/P TAVR CONCLUSIONS Normal left ventricular size. Mild concentric left ventricular hypertrophy. The left ventricular systolic function is normal with an estimated ejection fraction in the range of 60-65%. Status-post percutaneous aortic valve replacement. Trace aortic valve regurgitation. There is mild tricuspid valve regurgitation. The estimated pulmonary arterial pressure is 40.7 mmHg. BP: / HR: Rhythm: Sinus MEASUREMENTS (Male / Female) Normal Values Technical Quality:Fair 2D ECHO LVOT Diameter 1.5 cm Aortic Root Diameter 2.1 cm DOPPLER AV Peak Velocity 215.0 cm/s AV Peak Gradient 18.5 mmHg AV Mean Gradient 10.5 mmHg AV Velocity Time Integral 39.8 cm LVOT Peak Velocity 80.4 cm/s LVOT Peak Gradient 2.6 mmHg LVOT Velocity Time Integral 13.7 cm AV Area Cont Eq vti 0.6 cm AV Area Cont Eq pk 0.7 cm Mitral E Point Velocity 159.0 cm/s Mitral A Point Velocity 182.0 cm/s Mitral E to A Ratio 0.9 TR Peak Velocity 277.0 cm/s TR Peak Gradient 30.7 mmHg Right Atrial Pressure 10.0 mmHg Pulmonary Artery Systolic Pressu 40.7 mmHg Right Ventricular Systolic Press 40.7 mmHg FINDINGS LEFT VENTRICLE Normal left ventricular size. Mild concentric left ventricular hypertrophy. The left ventricular systolic function is normal with an estimated ejection fraction in the range of 60-65%. RIGHT VENTRICLE Normal right ventricular size and systolic function. LEFT ATRIUM The left atrial size is normal. RIGHT ATRIUM The right atrial size is normal. ATRIAL SEPTUM Normal atrial septal thickness without atrial level shunting by limited color doppler interrogation. AORTA The aortic root and proximal ascending aorta are not well visualized. MITRAL VALVE Structurally normal mitral valve. No mitral valve stenosis or regurgitation. AORTIC VALVE Status-post percutaneous aortic valve replacement. Trace aortic valve regurgitation. TRICUSPID VALVE There is mild tricuspid valve regurgitation. The estimated pulmonary arterial pressure is 40.7 mmHg. PULMONARY VALVE No pulmonary valve regurgitation or stenosis. VESSELS The inferior vena cava is normal in size. PERICARDIUM No pericardial effusion. Ferny Ross MD, FACC (Electronically Signed) Final Date:11 December 2017 16:26
[2017-12-11] MEDS ORDERED: OMEGCAP PO (21:22)
[2017-12-11] MEDS ORDERED: LAMO200T PO (21:22)
[2017-12-11] MEDS ORDERED: LOVA20TA PO (21:22)
[2017-12-11] MEDS ORDERED: LEVO50TA4 PO (21:22)
[2017-12-11] MEDS ORDERED: MIRTA15 PO (21:22)
== END 2017-12-11 14:35 | disposition home or self-care (01) | DRG 266 ==
LOC: HSDI 05:31 → HDIC 05:32 → HCVI 09:45
PROVIDERS: ADMIT Internal Medicine; ATTEND Internal Medicine
PROC: 02RF38Z Replacement of Aortic Valve with Zooplastic Tissue, Percutaneous Approach (ICD-10-PCS; principal; 2017-12-10 08:00)
PROC: B24BZZ4 Ultrasonography of Heart with Aorta, Transesophageal (ICD-10-PCS; 2017-12-10 08:00)
PROC: 5A1223Z Performance of Cardiac Pacing, Continuous (ICD-10-PCS; 2017-12-10 08:00)
DX: I35.0 Nonrheumatic aortic (valve) stenosis (principal); I11.0 Hypertensive heart disease with heart failure; I50.31 Acute diastolic (congestive) heart failure; I44.0 Atrioventricular block, first degree; Z90.81 Acquired absence of spleen; Z85.71 Personal history of Hodgkin lymphoma; Z92.3 Personal history of irradiation; F31.9 Bipolar disorder, unspecified; E78.5 Hyperlipidemia, unspecified; E03.9 Hypothyroidism, unspecified; Z85.828 Personal history of other malignant neoplasm of skin; Z87.891 Personal history of nicotine dependence
CPT/HCPCS: 71045; 80048; 85027; 86920; 93005; 93308; 93312; 93320; 93325; 94150; 94640; 94667; 94668; J0690; J1644; J2250; J2370; J2710; J2720; J3010; J7030; J7040; J7050; J7120; Q9967

== ENCOUNTER 2017-12-11 21:00 | Inpatient (IN) | payer OTHER, MEDICARE ==
[~2017-12-11] VITALS: Ht 167.6 cm; Wt 61.6 kg
[~2017-12-11 21:00] MED LIST changes: +CLOP75TA PO; +ECASA81 PO; +FLUO10TA PO; -OMEGCAP PO
[2017-12-11 21:10] VITALS: BP 151/65; PULSE 120; RESP 14; TEMP 98.6; O2SAT 93
[2017-12-11] MEDS ORDERED: SODIUM CHLOR 0.9% 1000 ML INJ 1,000 ML IV ONE (21:10)
[2017-12-11 21:15] VITALS: BP_SYST 133; BP_SYST 135; BP_SYST 151; BP_DIAS 60; BP_DIAS 62; RESP 14
[2017-12-11] MEDS ORDERED: SODIUM CHLORIDE 0.9% FLUSH 10 ML FLUSH IVF PRN (21:15)
[2017-12-11] MEDS ORDERED: LOVA20TA PO (21:22)
[2017-12-11] MEDS ORDERED: MIRTA15 PO (21:22)
[2017-12-11] MEDS ORDERED: LEVO50TA4 PO (21:22)
[2017-12-11] MEDS ORDERED: OMEGCAP PO (21:22)
[2017-12-11] MEDS ORDERED: LAMO200T PO (21:22)
[2017-12-11 21:23] VITALS: RESP 14; O2SAT 97
--- NOTE | 2017-12-11 21:24 | PD ---
HPI Chief Complaint: Syncope/Near-Syncope Time Seen by Provider: 21:10 Travel History International Travel<30 days: No Contact w/Intl Traveler<30days: No Traveled to known affect area: No History of Present Illness HPI Patient is a 62-year-old female presenting to the emergency department after having a syncopal episode at home. Per EVAC patient was in the shower when her sister heard a thud, patient was found on the floor with positive loss of consciousness. She regained consciousness after approximately 3 minutes. Patient states that she feels short of breath. She denied any chest pain prior to the syncopal episode but states she felt dizzy. Patient was just discharged from [place] earlier this afternoon after having an aortic valve replaced. Patient is currently on Plavix. She denies any headache, visual changes, weakness. Patient states she feels fine now but appears groggy. PFSH Past Medical History Hx Anticoagulant Therapy: Yes (Plavix) Bipolar Disorder: Yes Anxiety: Yes Depression: Yes Heart Rhythm Problems: Yes Cancer: Yes (1982 non hodgkins lymphoma) Cardiovascular Problems: Yes High Cholesterol: Yes Endocrine: Yes Genitourinary: Yes Hypertension: Yes Reproductive: Yes Radiation Therapy: Yes Seizures: Yes (LAST EPISODE 1982) Thyroid Disease: Yes ?: Not Menopausal: Yes : 0 Para: 0 Miscarriage: 0 : 0 Past Surgical History Abdominal Surgery: Yes (Splenectomy) Gynecologic Surgery: Yes Hysterectomy: Yes (Total; 2007 FOR PRESUMED OVARIAN CANCER (BENIGN)) Valve Replacement: Yes (Aortic valve replacement) Social History Alcohol Use: No Tobacco Use: No Substance Use: No Allergies-Medications (Allergen,Severity, Reaction): Coded Allergies: *MDRO Multi-Drug Resistant Organism (Verified Allergy, Unknown, 12/11/17) MRSA 07/2010 Reported Meds & Prescriptions Reported Meds & Active Scripts Active Clopidogrel (Clopidogrel Bisulfate) 75 Mg Tab 75 Mg PO DAILY Reported Levothyroxine (Levothyroxine Sodium) 50 Mcg Tab 50 Mcg PO DAILY Monitor-3 Fish Oil/Vitamin (Fish Oil-Cholecalciferol) 1,000-1,000 Mg Cap 1 Cap PO DAILY Mirtazapine 15 Mg Tab 15 Mg PO HS Lovastatin 20 Mg Tab 20 Mg PO DAILY Lamotrigine 200 Mg Tab 200 Mg PO DAILY Fluoxetine (Fluoxetine HCl) 10 Mg Tab 10 Mg PO DAILY Aspirin DR (Aspirin) 81 Mg Tabdr 81 Mg PO DAILY Multi-Vitamin Daily (Multiple Vitamin) 1 Tab Tab 1 Tab PO DAILY Vitamin D (Cholecalciferol) 2,000 Unit Cap Abilify (Aripiprazole) 10 Mg Tab 10 Mg PO DAILY Buspirone (Buspirone HCl) 15 Mg Tab 15 Mg PO BID Review of Systems Except as stated in HPI: all other systems reviewed are Neg HENT: Positive: Lightheadedness Cardiovascular: Positive: Tachycardia, No: Chest Pain or Discomfort Respiratory: Positive: Shortness of Breath Gastrointestinal: No: Nausea, Abdominal Pain Musculoskeletal: No: Myalgias Neurologic: Positive: Dizziness, Syncope Physical Exam Narrative GENERAL: Well-developed, well-nourished, alert female. Presenting in no acute distress. SKIN: Warm and dry. HEAD: Atraumatic. Normocephalic. EYES: Pupils equal and round. No scleral icterus. No injection or drainage. ENT: No nasal bleeding or discharge. Mucous membranes pink and moist. NECK: Trachea midline. No JVD. CARDIOVASCULAR: Tachycardic, 2/6 systolic murmur RESPIRATORY: No accessory muscle use. Clear to auscultation. Scattered expiratory wheezes on the left GASTROINTESTINAL: Abdomen soft, non-tender, nondistended. Hepatic and splenic margins not palpable. MUSCULOSKELETAL: Extremities without clubbing, cyanosis, or edema. No obvious deformities. NEUROLOGICAL: Awake and alert. No obvious cranial nerve deficits. Motor grossly within normal limits. Five out of 5 muscle strength in the arms and legs. Normal speech. PSYCHIATRIC: Appropriate mood and affect; insight and judgment normal. Data Data Last Documented VS Vital Signs Date Time Temp Pulse Resp B/P (MAP) Pulse Ox O2 Delivery O2 Flow Rate FiO2 12/11/17 21:23 14 97 12/11/17 21:15 112 120 109 12/11/17 21:10 98.6 Orders Orders Electrocardiogram (12/11/17 21:10) Complete Blood Count With Diff (12/11/17 21:10) Comprehensive Metabolic Panel (12/11/17 21:10) Magnesium (Mg) (12/11/17 21:10) Ckmb (Isoenzyme) Profile (12/11/17 21:10) Troponin I (12/11/17 21:10) Act Partial Throm Time (Ptt) (12/11/17 21:10) Prothrombin Time / Inr (Pt) (12/11/17 21:10) Ct Brain W/O Iv Contrast(Rout) (12/11/17 21:10) Blood Glucose (12/11/17 21:10) Ecg Monitoring (12/11/17 21:10) Iv Access Insert/Monitor (12/11/17 21:10) Oximetry (12/11/17 21:10) Sodium Chloride 0.9% Flush (Ns Flush) (12/11/17 21:15) Sodium Chlor 0.9% 1000 Ml Inj (Ns 1000 M (12/11/17 21:10) Orthostatic Vital Signs (12/11/17 21:10) Chest, Pa & Lat (12/11/17 ) Ct Pulmonary Angiogram (12/11/17 ) Iohexol 350 Inj (Omnipaque 350 Inj) (12/11/17 21:46) CKMB (12/11/17 21:26) CKMB% (12/11/17 21:26) Consult Cardiology (12/11/17 ) Levofloxacin 750 Mg Premix Inj (Levaquin (12/11/17 22:30) Admit Order (Ed Use Only) (12/11/17 22:45) Labs Laboratory Tests Test 12/11/17 21:26 White Blood Count 13.8 TH/MM3 Red Blood Count 3.84 MIL/MM3 Hemoglobin 11.8 GM/DL Hematocrit 35.8 % Mean Corpuscular Volume 93.1 FL Mean Corpuscular Hemoglobin 30.8 PG Mean Corpuscular Hemoglobin Concent 33.1 % Red Cell Distribution Width 14.0 % Platelet Count 182 TH/MM3 Mean Platelet Volume 8.6 FL Neutrophils (%) (Auto) 64.6 % Lymphocytes (%) (Auto) 17.2 % Monocytes (%) (Auto) 12.1 % Eosinophils (%) (Auto) 5.8 % Basophils (%) (Auto) 0.3 % Neutrophils # (Auto) 8.9 TH/MM3 Lymphocytes # (Auto) 2.4 TH/MM3 Monocytes # (Auto) 1.7 TH/MM3 Eosinophils # (Auto) 0.8 TH/MM3 Basophils # (Auto) 0.0 TH/MM3 CBC Comment DIFF FINAL Differential Comment Prothrombin Time 10.6 SEC Prothromb Time International Ratio 1.0 RATIO Activated Partial Thromboplast Time 21.7 SEC Blood Urea Nitrogen 13 MG/DL Creatinine 0.77 MG/DL Random Glucose 111 MG/DL Total Protein 7.4 GM/DL Albumin 3.1 GM/DL Calcium Level 8.4 MG/DL Magnesium Level 1.7 MG/DL Alkaline Phosphatase 95 U/L Aspartate Amino Transf (AST/SGOT) 30 U/L Alanine Aminotransferase (ALT/SGPT) 23 U/L Total Bilirubin 0.7 MG/DL Sodium Level 141 MEQ/L Potassium Level 3.7 MEQ/L Chloride Level 102 MEQ/L Carbon Dioxide Level 25.9 MEQ/L Anion Gap 13 MEQ/L Estimat Glomerular Filtration Rate 76 ML/MIN Total Creatine Kinase 113 U/L Creatine Kinase MB 2.1 NG/ML Troponin I 0.45 NG/ML MDM Medical Decision Making Medical Screen Exam Complete: Yes Emergency Medical Condition: Yes Medical Record Reviewed: Yes Interpretation(s) Vital Signs Date Time Temp Pulse Resp B/P (MAP) Pulse Ox O2 Delivery O2 Flow Rate FiO2 12/11/17 21:15 112 14 135/60 (85) 120 14 151/62 (91) 109 14 133/60 (84) 12/11/17 21:10 98.6 120 14 151/65 (93) 93 Differential Diagnosis Vasovagal syncope versus cardiac arrhythmia versus pulmonary embolism versus metabolic abnormality versus other Narrative Course Patient is a 62-year-old female presenting for evaluation of a syncopal episode that occurred just prior to arrival. Patient is tachycardic on arrival, her blood pressure is stable. Orthostatic vital signs are negative. Labs and imaging ordered and pending. Initial EKG which was read by my attending physician shows sinus tachycardia with a right bundle branch block, this is new when compared to prior, rate is 111. CT of the head shows no acute intracranial abnormality, reports paranasal sinus mucoperiosteal thickening. CT pulmonary angiogram is negative for PE. It does show atelectasis versus consolidation of the left lung base with trace left pleural fluid. Chest x-ray is stable with interstitial prominence which could indicate mild pulmonary edema. There are likely trace bilateral pleural effusions. CBC with a white count of 13.8, elevated monocytes, eosinophilia. White count is elevated when compared to prior images from this morning which resulted at 12.[address] Ross recommended patient be admitted to telemetry, he was not as concerned about the elevated troponin since patient recently had a cardiac cath. It was more concerning is the potential for cardiac arrhythmia. Due to the infiltrate noted on CT as well as chest x-ray patient will be given a dose of antibiotics now. Dr. Dos Santos accepted admit, admit orders placed. Plan of care was discussed with my attending physician throughout patient's course in the emergency department. Diagnosis Primary Impression: Syncope and collapse Additional Impressions: S/P TAVR (transcatheter aortic valve replacement) Right bundle branch block Infiltrate of lung present on imaging of chest Admitting Information Admitting Physician Requests: Admit Condition: Stable Cammie Painting Dec 11, 2017 21:24
[2017-12-11 21:41] LABS: AUTOMATED NEUTROPHIL # 8.9 TH/MM3 (1.8-7.7); BASOPHIL % 0.3 % (0.0-2.0); EOSINOPHIL # 0.8 TH/MM3 (0-0.4); EOSINOPHIL % 5.8 % (0.0-4.0); HEMATOCRIT 35.8 % (35.0-46.0); HEMOGLOBIN 11.8 GM/DL (11.6-15.3); LYMPH % 17.2 % (9.0-44.0); LYMPHOCYTE # 2.4 TH/MM3 (1.0-4.8); MEAN CELL VOLUME 93.1 FL (80.0-100.0); MEAN CORPUSCULAR HEMOGLOBIN 30.8 PG (27.0-34.0); MEAN CORPUSCULAR HGB CONC 33.1 % (32.0-36.0); MEAN PLATELET VOLUME 8.6 FL (7.0-11.0); MONO % 12.1 % (0.0-8.0); MONOCYTE # 1.7 TH/MM3 (0-0.9); NEUT % 64.6 % (16.0-70.0); PLATELET COUNT 182 TH/MM3 (150-450); RED BLOOD COUNT 3.84 MIL/MM3 (4.00-5.30); WHITE BLOOD COUNT 13.8 TH/MM3 (4.0-11.0)
--- NOTE | 2017-12-11 21:41 | RADRPT ---
EXAM DATE: 12/11/2017 9:36 PM EDT AGE/SEX: 62 years / Female INDICATIONS: Weakness. Congestion. CLINICAL DATA: This is the patient's initial encounter. Patient reports that signs and symptoms have been present for 1 day and indicates a pain score of 5/10. MEDICAL/SURGICAL HISTORY: Lymphoma. None. Removal of mass in chest years ago. COMPARISON: [facility] [place], CHEST SINGLE AP, 12/10/2017. . FINDINGS: Frontal and lateral views of the chest demonstrate a normal size cardiac silhouette. Prosthetic aorti c valve is present. Multiple clips overlie the chest. There is marked elevation the left hemidiaphrag m with small left basilar pleural-parenchymal opacity. Interstitial prominence is stable. There is sl ight blunting of the posterior costophrenic sulcus on the right. No pneumothorax is identified. There is thoracolumbar scoliosis. Distal right clavicle has a stable appearance. CONCLUSION: 1. Stable chest x-ray with interstitial prominence which could indicate mild pulmonary edema. 2. There are likely trace bilateral pleural effusions. Electronically signed by: Saúl Finney MD 12/11/2017 9:40 PM EDT
[2017-12-11] MEDS ORDERED: IOHEXOL 350 MG/ML 10 ML VIAL (for RAD DIAG) IVCONTRAST ONE (21:46)
[2017-12-11 21:52] LABS: PROTHROMBIN TIME - PATIENT 10.6 SEC (9.8-11.6)
--- NOTE | 2017-12-11 22:04 | RADRPT ---
EXAM DATE: 12/11/2017 9:45 PM EDT AGE/SEX: 62 years / Female INDICATIONS: chest pain, shortness of breath. CLINICAL DATA: This is the patient's initial encounter. Patient reports that signs and symptoms have been present for 1 day and indicates a pain score of 3/10. MEDICAL/SURGICAL HISTORY: Hypertension. Non Hodgkin's Lymphoma. . Atrial valve replacement. RADIATION DOSE: 8.65 CTDI (mGy) COMPARISON: [facility] [place], CHEST PA & LAT, 12/11/2017. [facility] [place], CHEST SINGLE AP, 12/10/2017. . TECHNIQUE: Volumetric scanning was performed using a multi-row detector CT scanner during bolus infu qamar of 73 ml Omnipaque 350 (iohexol) nonionic water-soluble contrast as a single exam dose. The emile a was post processed with a variety of visualization algorithms including full volume maximum intensi ty projection and sliding thin slab reformation. Using automated exposure control and adjustment of the mA and/or kV according to patient size, radiation dose was kept as low as reasonably achievable t o obtain optimal diagnostic quality images. FINDINGS: Pulmonary Arteries: No filling defects are seen within the pulmonary arteries through the segmental instability subsegmental level pulmonary arteries. Lung: There are chronic appearing interstitial changes with architectural distortion and volume loss in the upper lobes bilaterally. At the left lung base there is atelectasis versus airspace consolida tion. No pneumothorax is present. Effusion: There is trace left pleural fluid. Mediastinum: Heart and great vessels demonstrate no acute finding. There is calcification of the boubacar ral annulus and a stent placed aortic valve is present. There are clips in the mediastinum. No lympha denopathy is seen. The esophagus is dilated. Other: No acute osseous abnormality is identified. Visualized upper abdominal structures demonstrate no acute finding. There is marked elevation of the left hemidiaphragm. CONCLUSION: 1. No PE is identified. 2. Atelectasis versus consolidation at the left lung base with trace left pleural fluid. Electronically signed by: Saúl Finney MD 12/11/2017 10:03 PM EDT
[2017-12-11 22:06] LABS: ALBUMIN 3.1 GM/DL (3.4-5.0); AST (GOT) 30 U/L (15-37); BICARBONATE 25.9 MEQ/L (21.0-32.0); BLOOD UREA NITROGEN 13 MG/DL (7-18); CALCIUM 8.4 MG/DL (8.5-10.1); CHLORIDE 102 MEQ/L (98-107); CREATININE 0.77 MG/DL (0.50-1.00); GLOMERULAR FILTRATION RATE 76 ML/MIN (>89); GLUCOSE,RANDOM 111 MG/DL (74-106); MAGNESIUM 1.7 MG/DL (1.5-2.5); SODIUM (NA) 141 MEQ/L (136-145)
[2017-12-11 22:07] LABS: ALT (GPT) 23 U/L (10-53)
--- NOTE | 2017-12-11 22:07 | RADRPT ---
EXAM DATE: 12/11/2017 9:40 PM EDT AGE/SEX: 62 years / Female INDICATIONS: Trauma, fell and hit head. CLINICAL DATA: This is the patient's initial encounter. Patient reports that signs and symptoms have been present for 1 day and indicates a pain score of 3/10. MEDICAL/SURGICAL HISTORY: Hypertension. Non Hodgkin's Lymphoma. . Atrial valve replacement. RADIATION DOSE: 56.35 CTDI (mGy) COMPARISON: [facility] [place], CT BRAIN W/O CONTRAST, 04/02/2013. . TECHNIQUE: CT of the head without contrast. Using automated exposure control and adjustment of the mA and/or kV according to patient size, radiation dose was kept as low as reasonably achievable to ob tain optimal diagnostic quality images. FINDINGS: Cerebrum: The ventricles are normal. There is mild generalized atrophy. No midline shift, mass lesio n, hemorrhage or acute infarction. No extraaxial fluid collections are seen. Posterior Fossa: The cerebellum and brainstem demonstrate no acute abnormality. There is cerebellar atrophy out of proportion to cerebral atrophy. The 4th ventricle is midline. The cerebellopontine an gle is within normal limits. Extracranial: There is mucoperiosteal thickening within the right frontal, ethmoid, and right maxill mandy sinus. Skull: The calvaria is intact. No skull fracture. CONCLUSION: 1. No acute intracranial abnormality is identified. 2. There is paranasal sinus mucoperiosteal thickening. Electronically signed by: Saúl Finney MD 12/11/2017 10:05 PM EDT
[2017-12-11 22:11] LABS: ALKALINE PHOSPHATASE 95 U/L (45-117); TOTAL BILIRUBIN ADULT 0.7 MG/DL (0.2-1.0); TOTAL PROTEIN 7.4 GM/DL (6.4-8.2); TROPONIN I 0.45 NG/ML (0.02-0.05)
[2017-12-11] MEDS ORDERED: LEVOFLOXACIN 750 MG PREMIX INJ 150 ML IV ONE (22:30)
--- NOTE | 2017-12-11 22:33 | PD ---
Physical Exam Date Seen by Provider: Dec 11, 2017 Time Seen by Provider: 22:27 Narrative GENERAL: Well-developed well-nourished female no acute distress no respiratory distress GCS 15 SKIN: Warm and dry. HEAD: Normocephalic. Atraumatic no scalp soft tissue swelling tenderness abrasion or laceration or bony abnormality. EYES: No scleral icterus. No injection or drainage. Pupils equal round reactive to light extra ocular muscles intact. ENT airway is patent. NECK: Supple, trachea midline. No JVD or lymphadenopathy. No midline tenderness to direct palpation along the cervical spine. CARDIOVASCULAR: Increased regular rate and rhythm without murmurs, gallops, or rubs. RESPIRATORY: Breath sounds equal bilaterally. No accessory muscle use. No rales or rhonchi to auscultation GASTROINTESTINAL: Abdomen soft, non-tender, nondistended. MUSCULOSKELETAL: No cyanosis, or edema. Bilateral radial and dorsalis pedis pulses 2+ to palpation. BACK: Nontender without obvious deformity. No CVA tenderness. Data Data Last Documented VS Vital Signs Date Time Temp Pulse Resp B/P (MAP) Pulse Ox O2 Delivery O2 Flow Rate FiO2 12/11/17 21:23 14 97 12/11/17 21:15 112 120 109 12/11/17 21:10 98.6 Orders Orders Electrocardiogram (12/11/17 21:10) Complete Blood Count With Diff (12/11/17 21:10) Comprehensive Metabolic Panel (12/11/17 21:10) Magnesium (Mg) (12/11/17 21:10) Ckmb (Isoenzyme) Profile (12/11/17 21:10) Troponin I (12/11/17 21:10) Act Partial Throm Time (Ptt) (12/11/17 21:10) Prothrombin Time / Inr (Pt) (12/11/17 21:10) Ct Brain W/O Iv Contrast(Rout) (12/11/17 21:10) Blood Glucose (12/11/17 21:10) Ecg Monitoring (12/11/17 21:10) Iv Access Insert/Monitor (12/11/17 21:10) Oximetry (12/11/17 21:10) Sodium Chloride 0.9% Flush (Ns Flush) (12/11/17 21:15) Sodium Chlor 0.9% 1000 Ml Inj (Ns 1000 M (12/11/17 21:10) Orthostatic Vital Signs (12/11/17 21:10) Chest, Pa & Lat (12/11/17 ) Ct Pulmonary Angiogram (12/11/17 ) Iohexol 350 Inj (Omnipaque 350 Inj) (12/11/17 21:46) CKMB (12/11/17 21:26) CKMB% (12/11/17 21:26) Consult Cardiology (12/11/17 ) Levofloxacin 750 Mg Premix Inj (Levaquin (12/11/17 22:30) Labs Laboratory Tests Test 12/11/17 21:26 White Blood Count 13.8 TH/MM3 Red Blood Count 3.84 MIL/MM3 Hemoglobin 11.8 GM/DL Hematocrit 35.8 % Mean Corpuscular Volume 93.1 FL Mean Corpuscular Hemoglobin 30.8 PG Mean Corpuscular Hemoglobin Concent 33.1 % Red Cell Distribution Width 14.0 % Platelet Count 182 TH/MM3 Mean Platelet Volume 8.6 FL Neutrophils (%) (Auto) 64.6 % Lymphocytes (%) (Auto) 17.2 % Monocytes (%) (Auto) 12.1 % Eosinophils (%) (Auto) 5.8 % Basophils (%) (Auto) 0.3 % Neutrophils # (Auto) 8.9 TH/MM3 Lymphocytes # (Auto) 2.4 TH/MM3 Monocytes # (Auto) 1.7 TH/MM3 Eosinophils # (Auto) 0.8 TH/MM3 Basophils # (Auto) 0.0 TH/MM3 CBC Comment DIFF FINAL Differential Comment Prothrombin Time 10.6 SEC Prothromb Time International Ratio 1.0 RATIO Activated Partial Thromboplast Time 21.7 SEC Blood Urea Nitrogen 13 MG/DL Creatinine 0.77 MG/DL Random Glucose 111 MG/DL Total Protein 7.4 GM/DL Albumin 3.1 GM/DL Calcium Level 8.4 MG/DL Magnesium Level 1.7 MG/DL Alkaline Phosphatase 95 U/L Aspartate Amino Transf (AST/SGOT) 30 U/L Alanine Aminotransferase (ALT/SGPT) 23 U/L Total Bilirubin 0.7 MG/DL Sodium Level 141 MEQ/L Potassium Level 3.7 MEQ/L Chloride Level 102 MEQ/L Carbon Dioxide Level 25.9 MEQ/L Anion Gap 13 MEQ/L Estimat Glomerular Filtration Rate 76 ML/MIN Total Creatine Kinase 113 U/L Creatine Kinase MB 2.1 NG/ML Troponin I 0.45 NG/ML [facility] Medical Record Reviewed: Yes Supervised Visit with MONICA: Yes Interpretation(s) Last Impressions Head CT 12/11/17 2110 Signed Impressions: CONCLUSION: 1. No acute intracranial abnormality is identified. 2. There is paranasal sinus mucoperiosteal thickening. Chest X-Ray 12/11/17 0000 Signed Impressions: CONCLUSION: 1. Stable chest x-ray with interstitial prominence which could indicate mild p ulmonary edema. 2. There are likely trace bilateral pleural effusions. CT Angiography 12/11/17 0000 Signed Impressions: CONCLUSION: 1. No PE is identified. 2. Atelectasis versus consolidation at the left lung base with trace left pleu ral fluid. CBC & BMP Diagram 12/11/17 21:26 Total Protein 7.4, Albumin 3.1 L, Calcium Level 8.4 L, Magnesium Level 1.7, Alkaline Phosphatase 95, Aspartate Amino Transf (AST/SGOT) 30, Alanine Aminotransferase (ALT/SGPT) 23, Total Bilirubin 0.7 Vital Signs Date Time Temp Pulse Resp B/P (MAP) Pulse Ox O2 Delivery O2 Flow Rate FiO2 12/11/17 21:23 14 97 12/11/17 21:15 112 14 135/60 (85) 120 14 151/62 (91) 109 14 133/60 (84) 12/11/17 21:10 98.6 120 14 151/65 (93) 93 Differential Diagnosis Syncope, arrhythmia, volume depletion, ACS, PE, anemia, also to consider flash pulmonary edema CHF/valve rupture Narrative Course I, Dr. Singleton, have reviewed the advance practice practitioner's documentation and am in agreement, met with the patient face to face, made the diagnosis, and the medical decision making was done by me. *My assessment and Findings: 62-year-old female status post TAPVR 12/10/17 and cardiac catheterization by her ore fielder Dr. hale and cardiothoracic surgeon Dr. Navarrete. Patient was discharged from the hospital this afternoon and 12/11/17 was feeling fatigue decided to take a shower and during showers started noticing some dizziness syncopal episode. Sister heard the fall attempted to find the patient in the bathroom but could not get to the door as patient reportedly potentially slumped against the door a neighbor was able to get into the room and patient was awake on the floor at time of sister evaluating her. Estimated time of potential loss of consciousness 1-3 minutes. No reported witnessed seizure activity. No reported incontinence or tongue trauma. Patient was identified to be in a sinus tachycardia upon EMS evaluation upon arrival to the emergency department concern for possible arrhythmia new-onset, PE, intracranial bleed, ACS. Patient identified to have a CT brain noncontrast with no acute abnormality CT pulmonary embolism study no PE but was identified to have elevated left hemidiaphragm noted on chest x-ray as well as possible infiltrate and small effusion. Patient was found to have elevated white cell count and review of consolidation on chest x-ray will be covered presumptively for possible infectious etiology/early pneumonia also identified to have elevated troponin. Most likely elevated troponin reflects recent cardiac catheterization and procedure however this was discussed with on- call ore fielder who would like patient admitted to [facility] for ongoing rhythm monitoring. Concur with current management and further dictation details through [facility] note. Syncope, vasovagal syncope, arrhythmia, pulmonary consolidation by chest x-ray, leukocytosis, nonspecific elevation of troponin I ; plan admit for observation to [facility] to medicine service with consult to cardiology Dr. Hale Diagnosis Primary Impression: Syncope and collapse Tiffanie Singleton MD Dec 11, 2017 22:33
[2017-12-11 23:50] VITALS: BP 129/60; PULSE 111; RESP 16; O2SAT 96
[2017-12-12] VITALS (18 sets, daily range): BP systolic 94–167; BP diastolic 57–94; PULSE 77–121; RESP 14–20; TEMP 97.3–99.1; O2SAT 92–100
[2017-12-12] MEDS ORDERED: ACETAMINOPHEN 325 MG TAB PO PRN (00:15)
[2017-12-12] MEDS ORDERED: NALOXONE HCL 0.4 MG/ML AMP IV PUSH PRN (00:15)
[2017-12-12] MEDS ORDERED: SODIUM CHLORIDE 0.9% FLUSH 10 ML FLUSH IV FLUSH PRN ×2 (00:15→02:45)
[2017-12-12] MEDS: MIRTAZAPINE 15 MG TAB PO SCH ×2 (00:30→21:00)
--- NOTE | 2017-12-12 01:14 | HHI.HP ---
[facility] Silas Berrios MD Admission Diagnosis SYNCOPE, new right bundle branch block Diagnoses: Travel History International Travel<30 Days: No Contact w/Intl Traveler <30 Da: No Traveled to Known Affected Are: No History of Present Illness 62-year-old female with a past medical history significant for hypothyroidism, depression, hyperlipidemia, history of Hodgkin's lymphoma and a history of aortic stenosis status post TAVR on 12/10 presents the emergency department after a syncopal episode. The patient was in the shower when she lost consciousness. She has no memory of the events. Her sister heard her fall and ran to check on her and found her unconscious. The patient's sister then called a friend to stay with her sister while she called EMS. The friend reports some seizure- like activity although the symptoms are did not witness this. The patient denies any chest pain or shortness of breath. No fever/chills. No abdominal pain. No nausea/vomiting/diarrhea. No lateralizing signs/symptoms. Review of Systems Except as stated in HPI: all other systems reviewed are Neg Past Family Social History Past Medical History hypothyroidism, depression, hyperlipidemia, history of Hodgkin's lymphoma and a history of aortic stenosis status post TAVR on 12/10 Past Surgical History TAVR Chest tumor resection Splenectomy Reported Medications Reported Meds & Active Scripts Active Clopidogrel (Clopidogrel Bisulfate) 75 Mg Tab 75 Mg PO DAILY Reported Levothyroxine (Levothyroxine Sodium) 50 Mcg Tab 50 Mcg PO DAILY [place]-3 Fish Oil/Vitamin (Fish Oil-Cholecalciferol) 1,000-1,000 Mg Cap 1 Cap PO DAILY Mirtazapine 15 Mg Tab 15 Mg PO HS Lovastatin 20 Mg Tab 20 Mg PO DAILY Lamotrigine 200 Mg Tab 200 Mg PO DAILY Fluoxetine (Fluoxetine HCl) 10 Mg Tab 10 Mg PO DAILY Aspirin DR (Aspirin) 81 Mg Tabdr 81 Mg PO DAILY Multi-Vitamin Daily (Multiple Vitamin) 1 Tab Tab 1 Tab PO DAILY Vitamin D (Cholecalciferol) 2,000 Unit Cap Abilify (Aripiprazole) 10 Mg Tab 10 Mg PO DAILY Buspirone (Buspirone HCl) 15 Mg Tab 15 Mg PO BID Allergies: Coded Allergies: *MDRO Multi-Drug Resistant Organism (Verified Allergy, Unknown, 12/11/17) MRSA 07/2010 Family History Negative for CAD/DM Physical Exam Vital Signs Vital Signs Date Time Temp Pulse Resp B/P (MAP) Pulse Ox O2 Delivery O2 Flow Rate FiO2 12/11/17 23:50 111 16 129/60 (83) 96 Room Air 12/11/17 21:23 14 97 12/11/17 21:15 112 14 135/60 (85) 120 14 151/62 (91) 109 14 133/60 (84) 12/11/17 21:10 98.6 120 14 151/65 (93) 93 Physical Exam GENERAL: Thin, female lying in bed SKIN: No rashes, ecchymoses or lesions. Cool and dry. HEAD: Atraumatic. Normocephalic. No temporal or scalp tenderness. EYES: Pupils equal round and reactive. Extraocular motions intact. No scleral icterus. No injection or drainage. ENT: Nose without bleeding, purulent drainage or septal hematoma. Throat without erythema, tonsillar hypertrophy or exudate. Uvula midline. Airway patent. NECK: Trachea midline. No JVD or lymphadenopathy. Supple, nontender, no meningeal signs. CARDIOVASCULAR: Regular rate and rhythm. 3/6 murmur. RESPIRATORY: Clear to auscultation. Breath sounds equal bilaterally. No wheezes , rales, or rhonchi. GASTROINTESTINAL: Abdomen soft, non-tender, nondistended. No hepato-splenomegaly , or palpable masses. No guarding. MUSCULOSKELETAL: Extremities without clubbing, cyanosis, or edema. No joint tenderness, effusion, or edema noted. No calf tenderness. NEUROLOGICAL: Awake and alert. Cranial nerves II through XII intact. Motor and sensory grossly within normal limits. Normal speech. Laboratory Laboratory Tests Test 12/11/17 21:26 White Blood Count 13.8 Red Blood Count 3.84 Hemoglobin 11.8 Hematocrit 35.8 Mean Corpuscular Volume 93.1 Mean Corpuscular Hemoglobin 30.8 Mean Corpuscular Hemoglobin Concent 33.1 Red Cell Distribution Width 14.0 Platelet Count 182 Mean Platelet Volume 8.6 Neutrophils (%) (Auto) 64.6 Lymphocytes (%) (Auto) 17.2 Monocytes (%) (Auto) 12.1 Eosinophils (%) (Auto) 5.8 Basophils (%) (Auto) 0.3 Neutrophils # (Auto) 8.9 Lymphocytes # (Auto) 2.4 Monocytes # (Auto) 1.7 Eosinophils # (Auto) 0.8 Basophils # (Auto) 0.0 CBC Comment DIFF FINAL Differential Comment Prothrombin Time 10.6 Prothromb Time International Ratio 1.0 Activated Partial Thromboplast Time 21.7 Blood Urea Nitrogen 13 Creatinine 0.77 Random Glucose 111 Total Protein 7.4 Albumin 3.1 Calcium Level 8.4 Magnesium Level 1.7 Alkaline Phosphatase 95 Aspartate Amino Transf (AST/SGOT) 30 Alanine Aminotransferase (ALT/SGPT) 23 Total Bilirubin 0.7 Sodium Level 141 Potassium Level 3.7 Chloride Level 102 Carbon Dioxide Level 25.9 Anion Gap 13 Estimat Glomerular Filtration Rate 76 Total Creatine Kinase 113 Creatine Kinase MB 2.1 Troponin I 0.45 Result Diagram: 12/11/17212512/11/172125 Caprini VTE Risk Assessment Caprini VTE Risk Assessment: Mod/High Risk (score >= 2) Caprini Risk Assessment Model Point Value = 1 Point Value = 2 Point Value = 3 Point Value = 5 Age 41-60 Minor surgery BMI > 25 kg/m2 Swollen legs Varicose veins or History of unexplained or recurrent spontaneous Oral contraceptives or hormone replacement Sepsis (< 1 month) Serious lung disease, including pneumonia (< 1 month) Abnormal pulmonary function Acute myocardial infarction Congestive heart failure (< 1 month) History of inflammatory bowel disease Medical patient at bed rest Age 61-74 Arthroscopic surgery Major open surgery (> 45 min) Laparoscopic surgery (> 45 min) Malignancy Confined to bed (> 72 hours) Immobilizing plaster cast Central venous access Age >= 75 History of VTE Family history of VTE Factor V Leiden Prothrombin [id number] Lupus anticoagulant Anticardiolipin antibodies Elevated serum homocysteine Heparin-induced thrombocytopenia Other congenital or acquired thrombophilia Stroke (< 1 month) Elective arthroplasty Hip, pelvis, or leg fracture Acute spinal cord injury (< 1 month) Prophylaxis Regimen Total Risk Factor Score Risk Level Prophylaxis Regimen 0-1 Low Early ambulation 2 Moderate Order ONE of the following: *Sequential Compression Device (SCD) *Heparin 5000 units SQ BID 3-4 Higher Order ONE of the following medications: *Heparin 5000 units SQ TID *Enoxaparin/Lovenox 40 mg SQ daily (WT < 150 kg, CrCl > 30 mL/min) *Enoxaparin/Lovenox 30 mg SQ daily (WT < 150 kg, CrCl > 10-29 mL/min) *Enoxaparin/Lovenox 30 mg SQ BID (WT < 150 kg, CrCl > 30 mL/min) AND/OR *Sequential Compression Device (SCD) 5 or more Highest Order ONE of the following medications: *Heparin 5000 units SQ TID (Preferred with Epidurals) *Enoxaparin/Lovenox 40 mg SQ daily (WT < 150 kg, CrCl > 30 mL/min) *Enoxaparin/Lovenox 30 mg SQ daily (WT < 150 kg, CrCl > 10-29 mL/min) *Enoxaparin/Lovenox 30 mg SQ BID (WT < 150 kg, CrCl > 30 mL/min) AND *Sequential Compression Device (SCD) Assessment and Plan Assessment and Plan Assessment/plan: 1. Syncope Status post TAVR on 12/10 for aortic stenosis Concern for arrhythmia EKG significant for new right bundle-branch block, personally reviewed Cardiology consulted, appreciate recommendations Telemetry 2. Hypothyroidism/depression/hyperlipidemia Continue home medications FEN N.p.o. Electrolytes: Monitor and replete as needed Heparin Physician Certification 2 Midnight Certification Type: Admission for Inpatient Services Order for Inpatient Services The services are ordered in accordance with Medicare regulations or non- Medicare payer requirements, as applicable. In the case of services not specified as inpatient-only, they are appropriately provided as inpatient services in accordance with the 2-midnight benchmark. Estimated LOS (days): 2 2 days is the estimated time the patient will need to remain in the hospital, assuming treatment plan goals are met and no additional complications. Post-Hospital Plan: Not yet determined Sarah Dos Santos MD Dec 12, 2017 01:14
[2017-12-12] MEDS ORDERED: LORazepam 2 MG/ML VIAL ONE (01:43)
[2017-12-12] MEDS ORDERED: ISOPROTERENOL INJ 2 MG in DEXTROSE 5% IN WATER INJ 250 ML IV PRN ×2 (02:15)
[2017-12-12] MEDS ORDERED: MAGNESIUM SULFATE 1 GM PREMIX 100 ML IV ONE (02:30)
[2017-12-12] MEDS: POTASSIUM CHLOR 10 MEQ PREMIX 100 ML IV SCH ×3 (02:30→04:30)
[2017-12-12] MEDS: SODIUM CHLOR 0.9% 1000 ML INJ 1,000 ML IV SCH (02:37)
[2017-12-12] MEDS ORDERED: LORazepam 2 MG/ML VIAL IV PUSH PRN (02:45)
[2017-12-12] MEDS ORDERED: SENNOSIDES 8.6 MG TAB PO PRN (02:45)
[2017-12-12] MEDS ORDERED: NURSING INFORMATION XX SCH (02:45)
[2017-12-12] MEDS ORDERED: MAGNESIUM HYDROXIDE SUSP 30 ML CUP PO PRN (02:45)
[2017-12-12] MEDS ORDERED: ONDANSETRON ODT 4 MG TAB PO PRN (02:45)
[2017-12-12] MEDS ORDERED: RESP: ALBUTEROL 2.5 MG/3 ML NEB (PRN) INH (02:45)
[2017-12-12] MEDS ORDERED: CHLORHEXIDINE GLUCONATE 2 % 1 PACK (2 CLOTHS) TOP PRN (02:45)
[2017-12-12] MEDS ORDERED: levETIRAcetam INJ 100 ML IV ONE (02:45)
[2017-12-12] MEDS ORDERED: BISACODYL 10 MG SUPP RECTAL PRN (02:45)
[2017-12-12] MEDS ORDERED: LACTULOSE SYRUP 20 GM/30 ML CUP PO PRN (02:45)
--- NOTE | 2017-12-12 02:52 | PD.CONS ---
HPI Service Critical Care Medicine Consult Requested By Dr. Singleton/ED physician Reason for Consult Complete heart block Primary Care Physician Silas Berrios MD History of Present Illness This is a 62-year-old female. Date of admission 12/12/2017. Date of consultation 12/12/2017. Past medical history includes seizure disorder last 1982 , bipolar disorder, depression, essential hypertension, hyperlipidemia, hypothyroidism basal cell and ovarian cancer and Hodgkin's lymphoma. On 12/10, patient had elective transcatheter aortic valve replacement on 12/[address] Ross/ comment. She underwent uncomplicated placement of the iliac access. She currently however has a hematoma in the right groin. She was evaluated by EP cardiology and eventually had her temporary pacemaker removed. Today, patient presented to [facility] with a syncopal episode at home in the shower when she lost consciousness. She has no memory of the events. Her sister heard her fall and ran to check on her and found her unconscious. The patient's sister then called a friend to stay with her sister while she called EMS. The friend reports some seizure-like activity although EMS did not witness this. . CT pulmonary angiogram revealed mild pulmonary edema and possible left lower lobe infiltrate per CT brain revealed no acute intracranial findings. Today, patient had a approximately 2 minute episode of complete heart block which became hypotensive. CPR was initiated for 20 seconds weekly chest compressions. Patient received no medications, did however did receive 2 mg lorazepam for seizure activity.. Currently back in normal sinus rhythm/sinus tachycardia with first-degree AV block. Patient has a new right bundle branch block. Dr. Ross was notified and recommended isoproterenol drip currently 2 mg /min with pacer pads currently on. He will see the patient Review of Systems ROS Limitations: Altered Mental Status Past Family Social History Allergies: Coded Allergies: *MDRO Multi-Drug Resistant Organism (Verified Allergy, Unknown, 12/11/17) MRSA 07/2010 Past Medical History Depression Bipolar disorder History of sameera Essential hypertension Hyperlipidemia Osteoporosis/osteoarthritis First-degree AV block Hodgkin's lymphoma History of basal cell carcinoma History of ovarian cancer Past Surgical History Colonoscopy Total hysterectomy with oophorectomy Splenectomy vocal cord biopsy Partial sternotomy with mass removal Basal cell carcinoma removal right ear TAVR Thyroplasty Reported Medications Cortical 75 mg by mouth daily Lovastatin 20 mg by mouth daily Fish oil/cholecalciferol 1000 mg/100o U 1 tablet daily Aspirin 81 mg by mouth daily Lamotrigine 20 mg by mouth daily Fluoxetine 10 mg by mouth daily Mirtazapine 50 mg at night Aripiprazole 10 mg by mouth daily Buspirone 15 mg by mouth twice daily Levothyroxine 50 mcg by mouth daily Multivitamin 1 tablet by mouth daily Cholecalciferol 2000 units by mouth daily Active Ordered Medications Reviewed in EMR Family History Father from lung cancer Mother with breast cancer Social History History of alcohol abuse and sober. Remote tobacco use. Remote illicit drug use. Physical Exam Vital Signs Vital Signs Date Time Temp Pulse Resp B/P (MAP) Pulse Ox O2 Delivery O2 Flow Rate FiO2 12/12/17 02:10 107 20 149/67 (94) 92 Nasal Cannula 3.00 12/12/17 01:52 121 18 167/94 (118) 100 Non-Rebreather 18.00 12/11/17 23:50 111 16 129/60 (83) 96 Room Air 12/11/17 21:23 14 97 12/11/17 21:15 112 14 135/60 (85) 120 14 151/62 (91) 109 14 133/60 (84) 12/11/17 21:10 98.6 120 14 151/65 (93) 93 Physical Exam GENERAL: 62-year-old female currently on nasal cannula status post seizure and postictal SKIN: Warm and dry. No rash HEAD: Atraumatic. Normocephalic. EYES: Pupils equal and round about 4 mm bilaterally and reactive. No scleral icterus. No injection or drainage. ENT: No nasal bleeding or discharge. Mucous membranes pink and moist. Oropharynx without erythema NECK: Trachea midline. No JVD. Prior right IJ site without scarring CARDIOVASCULAR: Tachycardic, RR. S1, S2. No S4. Distant. No murmur RESPIRATORY: No accessory muscle use. Clear to auscultation. Breath sounds equal bilaterally. GASTROINTESTINAL: Abdomen soft, non-tender, nondistended. Hepatic and splenic margins not palpable. MUSCULOSKELETAL: Extremities without significant peripheral edema. No obvious deformities. Small to moderate hematoma with ecchymoses in the right inguinal region. No hematoma in the left inguinal region. NEUROLOGICAL: Awake and alert. No obvious cranial nerve deficits. Motor grossly within normal limits. Five out of 5 muscle strength in the arms and legs. Postictal/slurred speech. Laboratory Laboratory Tests Test 12/11/17 21:26 12/12/17 02:05 White Blood Count 13.8 Red Blood Count 3.84 Hemoglobin 11.8 Hematocrit 35.8 Mean Corpuscular Volume 93.1 Mean Corpuscular Hemoglobin 30.8 Mean Corpuscular Hemoglobin Concent 33.1 Red Cell Distribution Width 14.0 Platelet Count 182 Mean Platelet Volume 8.6 Neutrophils (%) (Auto) 64.6 Lymphocytes (%) (Auto) 17.2 Monocytes (%) (Auto) 12.1 Eosinophils (%) (Auto) 5.8 Basophils (%) (Auto) 0.3 Neutrophils # (Auto) 8.9 Lymphocytes # (Auto) 2.4 Monocytes # (Auto) 1.7 Eosinophils # (Auto) 0.8 Basophils # (Auto) 0.0 CBC Comment DIFF FINAL Differential Comment Prothrombin Time 10.6 Prothromb Time International Ratio 1.0 Activated Partial Thromboplast Time 21.7 Blood Urea Nitrogen 13 Creatinine 0.77 Random Glucose 111 Total Protein 7.4 Albumin 3.1 Calcium Level 8.4 Magnesium Level 1.7 Alkaline Phosphatase 95 Aspartate Amino Transf (AST/SGOT) 30 Alanine Aminotransferase (ALT/SGPT) 23 Total Bilirubin 0.7 Sodium Level 141 Potassium Level 3.7 Chloride Level 102 Carbon Dioxide Level 25.9 Anion Gap 13 Estimat Glomerular Filtration Rate 76 Total Creatine Kinase 113 Creatine Kinase MB 2.1 Troponin I 0.45 Result Diagram: 12/11/17212512/11/172125 Imaging Last Impressions Head CT 12/11/172109 Signed Impressions: CONCLUSION: 1. No acute intracranial abnormality is identified. 2. There is paranasal sinus mucoperiosteal thickening. Chest X-Ray 12/11/17 0000 Signed Impressions: CONCLUSION: 1. Stable chest x-ray with interstitial prominence which could indicate mild p ulmonary edema. 2. There are likely trace bilateral pleural effusions. CT Angiography 12/11/17 0000 Signed Impressions: CONCLUSION: 1. No PE is identified. 2. Atelectasis versus consolidation at the left lung base with trace left pleu ral fluid. Septic Shock Reassessment Septic shock perfusion: reassessment completed Assessment and Plan Assessment and Plan Neuro/Psych: Seizure disorder Depression Bipolar disorder Sameera Loaded with levetiracetam 1 g followed by [address] brain revealed no acute intracranial findings/mucoid sinus thickening EEG Seizure precautions We continue her home medicines including fluoxetine 10 mg daily, lamotrigine 200 mg daily, apriprazole 10 mg daily, and mirtazapine 15 mg at night We will hold buspirone HCl 15 mg twice daily as this is most likely to lower seizure threshold Acetaminophen 650 mg mL every 6 hours as needed fever CV: Recent Luevano S3/23 mm bioprosthetic aortic valve placement 12/10 Complete heart block/symptomatic Status post transcatheter aortic valve replaced 12/10 New right bundle branch block History of first-degree AV block Elevated troponin 0 0.45 Currently on isoproterenol at 2 mcg/min. Titrate to effect EKG revealed sinus tachycardia with first-degree AV block/right bundle branch block/right axis deviation Continue clopidogrel 75 mg and aspirin 81 mg daily Continue lovastatin 20 mg by mouth daily for dyslipidemia Facial/cholecalciferol resume when clinically indicated Was evaluated by Dr. Solorio last hospitalization Dr. Ross/cardiology will follow Currently normal saline at 84 cc an hour Troponins are being cycled every 8 hours Echocardiograms 12/11 revealed EF 60-65%. Mild LVH. PAP 40.7 mmHg Resp: Nasal cannula to maintain saturations greater than or equal to 92% Incentive spirometry while awake CT pulmonary angiogram 12/12 revealed no pulmonary embolism. Atelectasis versus consolidation at the left lung base with trace left pleural fluid. GI: Hypoalbuminemia N.p.o. except for medications Pantoprazole for GI prophylaxis Docusate sodium/senna 1 tablet twice daily for bowel regimen : No indication for Woo catheter Endo: Hypothyroidism Hyperglycemia Levothyroxine 50 mcg by mouth daily. Continue. Check TSH SSI to maintain euglycemia/low regimen every 6 hours of knobby log Renal: Creatinine currently within normal limits Monitor urine output Accurate I's and O's Heme: Leukocytosis History of Hodgkin's lymphoma History of ovarian and basal cell carcinoma Monitor CBC daily. Follow trends. ID: Monitor for signs and symptomatology of infection FEN: Receiving 30 mEq KCl and 3 g mag sulfate IV 1 now. Recheck at 08 100 MSK: PT evaluate and treat Access -Utilize peripheral IV. Central line if indicated Prophylaxis -GI -pantoprazole -DVT -SCD/heparin subcu Level 3 consult Addendum Noted patient had a third episode of complete heart block resulting in a seizure. Patient required oral tracheal intubation PRVC /07/11/[address] Ross. Temporary pacemaker placed. Consult Dr. Solorio for permanent pacemaker. Code Status Full code Discussed Condition With Dr. Singleton/ED physician. Patient. Care plan discussed and all questions answered. Ko Ramirez MD Dec 12, 2017 02:52
[2017-12-12 02:54] LABS: TROPONIN I 0.43 NG/ML (0.02-0.05)
--- NOTE | 2017-12-12 03:01 | RADRPT ---
EXAM DATE: 12/12/2017 2:45 AM EDT AGE/SEX: 62 years / Female INDICATIONS: Syncope. CLINICAL DATA: This is the patient's initial encounter. Patient reports that signs and symptoms have been present for 1 day and indicates a pain score of Nonresponsive. MEDICAL/SURGICAL HISTORY: Hypercholesterolemia. AFIB. Splenectomy. Hysterectomy. Aortic valv e replacement. COMPARISON: [facility] [place], [place]/11/[place]. . FINDINGS: Compared with December 11. Stable elevated left hemidiaphragm. Mild basilar airspace disease on the left. Mild interstitial prominence. Trace pleural fluid. Prosthetic aortic valve. CONCLUSION: Mild basilar airspace disease may represent atelectasis. Trace pleural fluid. Stable elevated left he midiaphragm. Electronically signed by: Robbie Roland MD 12/12/2017 3:00 AM EDT
[2017-12-12] MEDS ORDERED: DEXTROSE 50% IN WATER 50 ML VIAL(D50) IV PUSH PRN (03:15)
[2017-12-12] MEDS ORDERED: GLUCAGON 1 MG/ML VIAL OTHER PRN (03:15)
[2017-12-12] MEDS: CHLORHEXIDINE GLUCONATE 2 % 1 PACK (2 CLOTHS) TOP SCH (04:00)
[2017-12-12] MEDS: MAGNESIUM SULFATE 1 GM PREMIX 100 ML IV SCH ×2 (04:01→04:03)
[2017-12-12] MEDS ORDERED: ETOMIDATE 40 MG/20 ML VIAL ONE (04:25)
[2017-12-12] MEDS ORDERED: PROPOFOL 500 MG/50 ML INJ 50 ML ONE ×2 (04:35→06:15)
[2017-12-12] MEDS ORDERED: NOREPINEPHRINE-DEXTROSE DRIP 250 ML IV ONE (04:58)
[2017-12-12] MEDS: INSULIN ASPART SUPPLEMENTAL SCALE SQ SCH ×3 (05:27→18:00)
--- NOTE | 2017-12-12 05:52 | PD.PROCEDR ---
Procedure Note Procedure DATE: 12/12/2017 Temporary VVI pacemaker attempt which is currently AAI.: Right internal jugular vein. Ultrasound-guided INDICATION: Third-degree heart block CONSENT Informed consent for procedure was not obtaining considered emergent. DESCRIPTION OF THE PROCEDURE The patient was placed in supine position. The skin was cleansed with Chloraprep. Additional barrier precautions included large sterile drape, sterile gloves, sterile gown, face mask, and hat. 1 % lidocaine was used for local anesthesia. Under direct ultrasound guidance and on initial attempt, the right internal jugular vein was accessed with an introducer needle. The guide wire was advanced. Using Seldinger technique a 6 Slovenian 10 cm Cordis catheter was advanced to a depth of 10 centimeters. The guide wire was removed along with the dilator. The single port had good return of dark venous blood and flushed easily with saline. The central line was secured with 2.0 silk. Afterwards, after multiple attempts a #6 Slovenian temporary pacemaker was inserted through the Cordis to 20 cm. Balloon was inflated. Noted balloon was checked at 1-1/2 cm prior to insertion. Floated to approximately 34 cc with atrial capture. Unable to pass to ventricle which is a known issue with this patient prior pacemaker placements. Atrially captured rate of 90. Secured into place. ESTIMATED BLOOD LOSS: Minimal COMPLICATIONS: No apparent complications. STAT chest x-ray pending at time of dictation Discussed with Dr. Ross. Requested consult to Dr. Solorio Currently at 34 cm. Sensitivity 1 mV output 10 mA rate 90 Ko Ramirez MD Dec 12, 2017 05:52
[2017-12-12] MEDS: LEVOTHYROXINE SODIUM 50 MCG TAB PO SCH (05:55)
--- NOTE | 2017-12-12 06:03 | RADRPT ---
EXAM DATE: 12/12/2017 5:41 AM EDT AGE/SEX: 62 years / Female INDICATIONS: Line placement. CLINICAL DATA: This is the patient's subsequent encounter. Patient reports that signs and symptoms h ave been present for 1 day and indicates a pain score of Nonresponsive. MEDICAL/SURGICAL HISTORY: . Hypercholesterolemia. AFIB. . Splenectomy. Hysterectomy. Aortic v alve replacement. [place] [facility] [place]. . FINDINGS: Cardiomegaly status post aortic valve prosthesis placement. Consolidation remains the left lung base. Right-sided line overlies right atrium, curved back on itself. CONCLUSION: Right sided central line overlies right atrium, curved back on itself. Stable basilar airspace diseas e. Electronically signed by: Robbie Roland MD 12/12/2017 6:01 AM EDT
[2017-12-12 06:04] LABS: BACTERIA, URINE RARE /hpf; BILIRUBIN, URINE NEG (NEG); BLOOD, URINE NEG (NEG); GLUCOSE,URINE NEG (NEG); KETONE, URINE NEG (NEG); MUCUS URINE FEW /lpf (OCC); NITRITE,URINE NEG (NEG); PH, URINE 5.5 (5.0-8.5); URINE COLOR LIGHT-YELLOW (YELLW/STRAW); URINE LEUKOCYTE ESTERASE NEG (NEG)
[2017-12-12] MEDS ORDERED: PROPOFOL 1000 MG/100 ML IV PRN (06:30)
--- NOTE | 2017-12-12 08:30 | PD.PROCEDR ---
Procedure Note Procedure DATE: 12/12/2017 PROCEDURE: Orotracheal intubation INDICATION: Acute respiratory failure DETAILS OF PROCEDURE The patient was placed in optimal position and preoxygenated with 100% FiO2 via bag valve mask. At the start oxygen saturation was 100%. The patient was administered 20 milligrams etomidate IV. I entered the oropharynx with a size 4 laryngoscope blade and obtained a grade 2 view of the airway. On single attempt a size 8.0 cuffed endotracheal tube was passed through the vocal cords. Correct tube location was confirmed with end tidal CO2 detector and by auscultating over bilateral lung ayon. The endotracheal tube was secured with adhesive tape at a depth of 22 cm at the lips. The patient was connected to the ventilator. The patient tolerated the procedure well without any apparent complications. Oxygen saturations were maintained greater than 95% all times. STAT chest x-ray pending at time of dictation. Ko Ramirez MD Dec 12, 2017 08:30
--- NOTE | 2017-12-12 08:56 | MB ---
cc: Ferny Ross MD DATE: 12/12/2017 DATE OF CONSULTATION: 12/12/2017. HISTORY OF PRESENT ILLNESS: This is a very nice 62-year-old female who just underwent transcatheter aortic valve replacement back on 12/10/2017. She did well mat-procedurally. Post-procedure was uncomplicated and she was discharged on 12/11/2017. She went home and her sister found her down after a syncopal episode in the shower. The patient did regain consciousness and was brought into the emergency department and her friend had reported that it looked like seizure-type activity, but in the emergency department she had several episodes of complete heart block and hypotension. To protect her airway, she was intubated. We started on isoproterenol but she continued to have some complete heart block and a temporary transvenous pacemaker was placed. I was consulted for further recommendations. PAST MEDICAL HISTORY: Depression, bipolar, hypertension, hyperlipidemia, first degree AV block, Hodgkin's lymphoma, basal cell carcinoma and ovarian cancer. PAST SURGICAL HISTORY: Transcatheter aortic valve replacement secondary to severe aortic valve stenosis. MEDICATIONS: 1. Lovastatin. 2. Fish oil. 3. Aspirin. 4. Fluoxetine. 5. Mirtazapine. 6. Buspirone. 7. Levothyroxine. 8. Multivitamin. FAMILY HISTORY: She denies any family history of early cardiac disease or sudden cardiac . SOCIAL HISTORY: No current alcohol, drug use or tobacco abuse. REVIEW OF SYSTEMS: Unobtainable. PHYSICAL EXAMINATION: GENERAL: The patient is intubated and sedated. VITAL SIGNS: Pulse is 94, blood pressure 132/60 mmHg. LUNGS: Clear to auscultation bilaterally. CARDIOVASCULAR: Regular with a 2/6 systolic murmur. ABDOMEN: Nontender, nondistended. EXTREMITIES: Show no clubbing, cyanosis or edema. LABORATORY DATA: WBC 13.8, hemoglobin 11.8, and platelet count is 182. INR 1.0. Sodium 141, potassium 3.7, BUN 13, creatinine 0.77. Troponin 0.43. ASSESSMENT: 1. Syncope. 2. Complete heart block. 3. Severe aortic valve stenosis, status post transcatheter aortic valve replacement. PLAN: During procedure, the patient did not have any high degree AV block and post-procedure did well without any degree of AV block or intraventricular conduction delay. Dr. Solorio was involved. The patient was discharged yesterday and then subsequently had a complete heart block. I discussed the case in depth with Dr. Solorio. He is going to go ahead and put a permanent pacemaker in this morning. Hopefully, after that, we will be able to extubate her quickly. Her troponin elevation is not terribly concerning given her cardiac catheterization back in October showed normal coronaries. It is likely due to this hypotension. Transthoracic echocardiogram following the procedure was unremarkable and the aortic valve looked good. We will monitor closely. Hopefully, she will make a quick recovery. MD ARPIT Camacho/SB , 08:22 AM , 08:55 AM
[2017-12-12] MEDS ORDERED: busPIRone HCL 5 MG TAB PO SCH (09:00)
[2017-12-12] MEDS: FLUoxetine HCL 10 MG CAP PO SCH (09:00)
[2017-12-12] MEDS: DOCUSATE SODIUM 50 MG/SENNA 8.6 MG TAB PO SCH ×2 (09:00→21:00)
[2017-12-12] MEDS: ARIPiprazole 10 MG TAB PO SCH (09:00)
[2017-12-12] MEDS: lamoTRIgine 100 MG TAB PO SCH (09:00)
[2017-12-12] MEDS: HEPARIN SODIUM - SQ 10,000 UNITS/ML VIAL SQ SCH (09:00)
[2017-12-12] MEDS: CLOPIDOGREL 75 MG TAB PO SCH (09:11)
[2017-12-12] MEDS: PRAVASTATIN SOD 20 MG TAB PO SCH (09:11)
[2017-12-12] MEDS: ASPIRIN EC 81 MG TABEC PO SCH (09:12)
[2017-12-12] MEDS: levETIRAcetam INJ 500 MG in SODIUM CHLORIDE 0.9% INJ 100 ML IV SCH (09:12)
[2017-12-12] MEDS: PANTOPRAZOLE SODIUM 40 MG VIAL IV PUSH SCH (09:12)
[2017-12-12] MEDS: SODIUM CHLORIDE 0.9% FLUSH 10 ML FLUSH IV FLUSH SCH ×4 (09:12→21:00)
[2017-12-12] MEDS ORDERED: VANCOMYCIN 500 MG VIAL ONE (10:33)
[2017-12-12] MEDS ORDERED: LIDOCAINE HCL 2% 20 ML VIAL ONE (10:33)
[2017-12-12] MEDS ORDERED: SODIUM CHLOR 0.9% 250 ML INJ 250 ML ONE (10:34)
[2017-12-12] MEDS ORDERED: ceFAZolin INJ 1,000 MG VIAL ONE (10:34)
[2017-12-12] MEDS ORDERED: VANCOMYCIN HCL 1000 MG VIAL ONE (10:34)
[2017-12-12 10:41] LABS: AUTOMATED NEUTROPHIL # 18.5 TH/MM3 (1.8-7.7); BASOPHIL # 0.1 TH/MM3 (0-0.2); BASOPHIL % 0.4 % (0.0-2.0); EOSINOPHIL % 0.1 % (0.0-4.0); HEMATOCRIT 32.2 % (35.0-46.0); HEMOGLOBIN 10.7 GM/DL (11.6-15.3); LYMPH % 6.5 % (9.0-44.0); LYMPHOCYTE # 1.4 TH/MM3 (1.0-4.8); MEAN CELL VOLUME 92.9 FL (80.0-100.0); MEAN CORPUSCULAR HEMOGLOBIN 30.7 PG (27.0-34.0); MEAN CORPUSCULAR HGB CONC 33.1 % (32.0-36.0); MONO % 8.9 % (0.0-8.0); MONOCYTE # 1.9 TH/MM3 (0-0.9); NEUT % 84.1 % (16.0-70.0); PLATELET COUNT 144 TH/MM3 (150-450); RED BLOOD COUNT 3.47 MIL/MM3 (4.00-5.30)
[2017-12-12 11:12] LABS: BICARBONATE 26.8 MEQ/L (21.0-32.0); CALCIUM 7.5 MG/DL (8.5-10.1); CREATININE 0.61 MG/DL (0.50-1.00); TROPONIN I 0.47 NG/ML (0.02-0.05)
[2017-12-12 11:14] LABS: BANDS 14 % (0-6); LYMPHOCYTES 11 % (9-44); MONOCYTES 9 % (0-8); NEUTROPHIL # MANUAL DIFF 17.6 TH/MM3 (1.8-7.7); POLYS (SEG NEUTROPHILS) 66 % (16-70)
[2017-12-12 11:15] LABS: BURR CELLS 1+ (NORMAL); OVALOCYTES 1+ (NORMAL)
--- NOTE | 2017-12-12 12:02 | CATHPROC ---
Patient Name: KARLA OLIVER Study #: [id number] Initial MD: Enma Solorio Date of : 1955 Study Date: 12/12/2017 Cardiac Catheterization Report 12/12/2017 12:02:21 PM Financial #: [id number] 1 of 8 Patient Name: KARLA OLIVER Study #: [id number] Initial MD: Enma Solorio Date of : 1955 Study Date: 12/12/2017 Entire Case Report Patient Information Patient Name KARLA OLIVER Date of 1955 Age 62 years Financial # [id number] Gender F AlternateID Lab Number 6 Room Number 518 Height (in) 66.0 Height (cm) 167.6 BSA 1.79 Weight (lbs) 153.3 Weight (kg) 69.7 Patient Address/Phone Number Home Address [facility] Home Phone Number [address] [address] Study Information Study Number Admission Scheduled Start Study Start [id number] Dec 11 2017 10:47PM 12/12/2017 Dec 12 2017 10:25AM [place] [facility] Cardiac Pacer/ICD Admit Source Facility Department Emergency department [facility] [place] [facility] Physician and Clinical Staff Initial Enma Wagoner Search Engineer Emiliana Johnson,STOVE CLEANER TECH2 Other Anupama Mahajan RN Other Anesthesia, PROGRAMMER NUMERICAL CONTROL Recorder Karrie Martinez BSN Scrub Elsa McnamaraRT(R) TECH2 Procedures Performed Procedure Location (Site) Vessel Name Lead Insertion Venogram Subclav. Vein (Lft Subclavian Vein 12/12/2017 12:02:21 PM Financial #: [id number] 2 of 8 Patient Name: KARLA OLIVER Study #: [id number] Initial MD: Enma Solorio Date of : 1955 Study Date: 12/12/2017 Equipment Time Flight Communications Specialist Description Size Mfg Part Number Used/Scraped DERMABOND, ADHESIVE SKIN [id number] 10:27 CORDIS/PACER * Used GLUE MINI *[id number] 10:27 [employer] BLANKET,WARM AIR CCL * Used *[id number] 10:27 [employer] SUTURE, STRIP PLUS 1/2" * Used *[id number] 10:27 MEDLINE PACER HOBSON, LIMB * 2530 *[id number] Used [id number] 10:27 MEDLINE PACER PACK, PACER CUSTOM * Used *[id number] 11:02 [employer] PACER SAFE SHEATH, FR7, 13CM FR 7 [id number] Used 11:02 [employer] PACER SAFE SHEATH, FR7, 13CM FR 7 CLS-1007 Used 10:56 Needle Sponge Count 2 22 Used 10:56 Needle Sponge Count 20 200 Used 10:56 Needle Sponge Count 3 3 Used 10:59 NYCOMED OMNIPAQUE, 350 MG, 50ML 50ML [id number] Used SUTURE, 0 ETHIBOND [CT1] (CX21D), 8pk SUTURE, 2-0 VICRYL [CT1] ([id number]) SUTURE, 2-0 VICRYL [CT1] ([id number]) [facility] PAD, ELECTROSURGICAL 10:27 * [id number] *[id number] Used SURGICAL GROUNDING ORANGE LEAD, CAPSURE FIX NOVUS, 4076-52CM 11:08 VIT[employer]RON [employer] 52CM Used 52CM *[id number] LEAD, CAPSURE FIX NOVUS, 4076-58CM 11:04 [employer] 58CM Used 58CM *[id number] 11:14 [employer] PACEMAKER, RAMBO XT QAE-DDDR [id number] Used [id number] 10:27 [employer] MEDICAL BESSY. / * Used *[id number] Equipment Model, Serial, Lot Number and Expiration Data Description Model Number Serial Number Lot Number Expiration Date LEAD, CAPSURE FIX NOVUS, 52CM 4076-52 cm [id number] 09-09-2019 LEAD, CAPSURE FIX NOVUS, 58CM 4076-58 cm [id number] 10-21-2019 PACEMAKER, RAMBO XT [id number] 01-31-2019 Insurance Information Insurance Payor Private Health Insurance Third Green Party Third Green Party Number [employer] GOLD PLUS HMO HUMCRHMO 12/12/2017 12:02:21 PM Financial #: [id number] 3 of 8 Patient Name: KARLA OLIVER Study #: [id number] Initial MD: Enma Solorio Date of : 1955 Study Date: 8 Medication Medication Total Dose (Bolus/Oral) Medication Total Dosage/Unit 2% XYLOCAINE 20 mL PROPOFOL 35 mcg/kg/min Medications (Bolus/Oral) Medication Time Given Dosage/Unit Administered By Reason PROPOFOL 12/12/2017 10:28:22 AM 35 mcg/kg/min Patient arrived on 35 mcg/kg/min PROPOFOL via Peripheral IV. Pump/Drip Flow = 0 ml/hr using [Solution Name]. 2% XYLOCAINE 12/12/2017 10:54:28 AM 20 mL Enma Solorio 50 mL 2% XYLOCAINE given in lab by Enma Solorio in Left chest via Subcutaneous. Ordered by Chon Solorio. Medication (Drip) Medication Time Given Dosage/Unit Concentration/Unit Diluent (ml) Solution ANCEF 12/12/2017 10:45:29 AM 1 g Patient arrived on 1 g ANCEF given by Anesthesia, PROGRAMMER NUMERICAL CONTROL via Peripheral IV. Ordered by Enma Solorio. VANCOMYCIN DRIP 12/12/2017 10:30:15 AM 1 g Patient arrived on 1 g VANCOMYCIN DRIP given by Anesthesia, PROGRAMMER NUMERICAL CONTROL via Peripheral IV. Ordered by Enma Solorio. 12/12/2017 12:02:21 PM Financial #: [id number] Patient Name: KARLA OLIVER Study #: [id number] Initial MD: Enma Solorio Date of : 1955 Study Date: 12/12/2017 Initial Case Assessment Cardiovascular HR Rhythm NIBP Chest Pain 79 paced 139/64 0 Edema Present Skin color Skin None Normal Warm Dry Neurological State Unresponsive Comment: Patient intubated and on propofol drip Respiration - General Respiration Rate SpO2 (%) (B/min) 16 100 Respiration - Ventilator Type Intubation Type ET(oral) Final Case Assessment Cardiovascular HR Rhythm NIBP 68 paced 88/51 Edema Present Skin color Skin None Normal Warm Dry Neurological State Comment: patient remains intubated and sedated Respiration - General Respiration Rate SpO2 (%) (B/min) 16 100 Respiration - Ventilator Type Intubation Type ET(oral) Vitals Summary Pain Time HR NIBP SpO2 Resp Temp EtCO2 Apnea Corbin Gomez Comment Level 10:43:51 87 134/64 100.0 Chronological Log 12/12/2017 12:02:21 PM Financial #: [id number] Patient Name: KARLA OLIVER Study #: [id number] Initial MD: Enma Solorio Date of : 1955 Study Date: 12/12/2017 Time Study Chronological Log 10:20:33 Patient arrived via Bed. 10:20:37 Patient Name, D.O.B, / Armband Verified By R.N. 10:20:38 Anesthesia at bedside. Assumes care of patient. 10:26:42 Patient unconcious or incapacitated,verbal consent obtained from relative. 10:27:21 Patient unconcious; pre and post-op instructions not given. Verbal Stimulation=~VERBAL~ Physical Stimulation=~PHYSICAL~ Airway=~AIRWAY~ Respiration=~RESPIR ATION~ 10:27:26 TOTAL=~TOTAL~. (0=absent, 1=limited, 2=present) 10:27:44 Patient has been NPO for More than 6Hrs. 10:27:45 Skin Breakdown- 10:27:47 Patient arrived with Disposable Defibrillator Pads . 10:28:17 Jeffrey Prominences Protected 10:28:22 Patient arrived on 35 mcg/kg/min PROPOFOL via Peripheral IV. Pump/Drip Flow = 0 ml/hr using [Solution Name]. 10:28:24 History and physical on the chart or being dictated. 10:28:26 Table restraints applied according to hospital policy 10:30:15 Patient arrived on 1 g VANCOMYCIN DRIP given by Anesthesia, PROGRAMMER NUMERICAL CONTROL via Peripheral IV. Ordered by Enma Solorio. 10:32:41 MD arrived. 10:42:00 A # 20 IV was noted in the Forearm (left). Grade = 0 10:42:13 2% CHLORHEXIDINE GLUCONATE WASH AND NASAL SWIPE DONE PRIOR TO PROCEDURE. 10:42:24 Left and Right Upper Chest Prepped Times Two. 10:43:23 A 6 fr sheath was noted in the Jugular Vein (right) with temp pacer in place 10:43:26 A # 20 IV was noted in the Forearm (right). Grade = 0 Assessment: Initial Case, HR=79 BPM, Rhythm=paced, QGBU=432/64 mmhg, Chest Pain=0, Edema=None, Color=Normal, Skin = Warm, Dry 10:43:44 Neurological: State=Unresponsive, Comment=Patient intubated and on propofol drip Respiration: Resp=16 B/min, IxX6=095 %, Type=ET(Oral) 10:43:51 HR=87 bpm, KVCH=591/64 mmhg, OkT8=080 % First Sponge And Instrument Count Done by Elsa Mcnamara, RT(R) TECH2. 10:45:27 Hypo's: 3, Sponges: 20, Bovie/scratch: 2 Sutures: 10, Blades: 1, Instruments: 26, Syveck Patches: 0 confirmed with AM 10:45:29 Patient arrived on 1 g ANCEF given by Anesthesia, PROGRAMMER NUMERICAL CONTROL via Peripheral IV. Ordered by Emna Solorio. Time Out. Correct patient, procedure, procedure equipment, site and side verified with physicia n present. Time 10:52:51 concurred by MD, individual staff and PROGRAMMER NUMERICAL CONTROL. 10:53:06 Case Start 10:54:28 50 mL 2% XYLOCAINE given in lab by Enma Solorio in Left chest via Subcutaneous. Ordered by Enma Solorio. 10:59:01 The Subclav. Vein (Lft was manually injected with 10 cc's of contrast. OMNIPAQUE, 350 MG, 5 0ML 50ML used. 10:59:56 Vascular access was obtained in the Subclav. Vein (Lft. 11:00:42 Vascular access was obtained in the Subclav. Vein (Lft. 11:01:41 Surgical Incision Made. 11:02:51 A pocket was created at the L Upper Chest. 12/12/2017 12:02:21 PM Financial #: [id number] Patient Name: KARLA OLIVER Study #: [id number] Initial MD: Enma Solorio Date of : 1955 Study Date: 12/12/2017 11:03:10 A SAFE SHEATH, FR7, 13CM FR 7 was advanced into the Subclav. Vein (Lft using the Percutaneo us technique. 11:03:36 A LEAD, CAPSURE FIX NOVUS, 58CM 58CM was inserted and positioned in the RV. 11:05:04 Lead placement verified under fluoroscopy 11:05:52 The RV lead impedance and threshold being tested. 11:07:30 The RV lead was sutured to the fascia. 11:07:49 A LEAD, CAPSURE FIX NOVUS, 52CM 52CM was inserted and positioned in the RA. 11:09:02 Lead placement verified under fluoroscopy 11:10:01 The Atrial lead impedance and threshold is being tested. 11:12:29 The Atrial lead was sutured to the fascia. 11:12:56 Pocket flushed with antibiotic solution 11:14:02 A PACEMAKER, RAMBO XT DR MADRIGAL-DDDR was connected and placed in the pocket. 11:17:24 The pocket is being closed. First Sponge And Instrument Count Done by Elsa Mcnamara, RT(R) TECH2. 11:18:40 Hypo's: 3, Sponges: 20, Bovie/scratch: 2 Sutures: 10, Blades: 1, Instruments: ~INSTRU~, Syveck Patches: 0 confirmed with MM 11:30:30 The pocket was closed. First Sponge And Instrument Count Done by Elsa Mcnamara, RT(R) TECH2. 11:31:03 Hypo's: 3, Sponges: 20, Bovie/scratch: 2 Sutures: 10, Blades: 1, Instruments: 26, Syveck Patches: 0 confirmed with MM 11:31:37 Case End (Physician broke scrub) 11:33:16 Steri-strips and a sterile dressing applied to site. Assessment: Final Case, HR=68 BPM, Rhythm=paced, NIBP=88/51 mmhg, Edema=None, Color=Normal, Ski n = Warm, Dry 11:36:22 Neurological: Comment=patient remains intubated and sedated Respiration: Resp=16 B/min, BqK1=501 %, Type=ET(Oral) 11:37:24 No case complications noted. 11:37:25 Cine recording checked. 11:37:27 Bedside Report will be given. 11:37:29 Implantable Device card placed in patient's chart. 11:37:39 Implant Procedure was performed. 11:37:44 A PPM Implant . (Dual) 11:39:28 Temporary pacer removed 11:45:04 Patient moved to stretcher 11:46:07 Defibrillator and ground pads removed. Skin intact. 11:47:19 A sling was placed on the affected arm. Patient moved to stretcher. Transported on portable monitors with mechanical ventilation by bvm per PROGRAMMER NUMERICAL CONTROL with O2 @ 11:55:34 15L/min for transport. tech and RN accompanied. 12/12/2017 12:02:21 PM Financial #: [id number] Patient Name: KARLA OLIVER Study #: [id number] Initial MD: Enma Solorio Date of : 1955 Study Date: 12/12/2017 End Study - Contrast Media Used In Study Contrast Total Opened (mL) Total Used (mL) Total Wasted (mL) Omnipaque 10 10 0 End Study - Radiation Exposure Fluoro Time (minutes) 6.1 End Study - Patient Disposition Complications Transferred To No Critical Care Bed 12/12/2017 12:02:21 PM Financial #: [id number]
[2017-12-12 14:46] LABS: MAGNESIUM 2.2 MG/DL (1.5-2.5); PHOSPHORUS 1.8 MG/DL (2.5-4.9)
[2017-12-12 14:49] LABS: TROPONIN I 0.54 NG/ML (0.02-0.05)
--- NOTE | 2017-12-12 15:49 | EKG ---
Date Performed: 12/11/2017 Time Performed: 21:47:17 PTAGE: 62 years EKG: SINUS TACHYCARDIA RIGHT BUNDLE BRANCH BLOCK POSSIBLE ANTERIOR MYOCARDIAL INFARCTION ABNORMA L ECG Compared to PREVIOUS TRACING , patient now has a new right bundle branch block. PREVIOUS TRACIN01/2018 03.51 DOCTOR: Kendra Daugherty Interpretating Date/Time 12/12/2017 15:48:58
--- NOTE | 2017-12-12 15:51 | EKG ---
Date Performed: 12/12/2017 Time Performed: 02:02:04 PTAGE: 62 years EKG: SINUS TACHYCARDIA RIGHT BUNDLE BRANCH BLOCK POSSIBLE ANTERIOR MYOCARDIAL INFARCTION MODERAT E T-WAVE ABNORMALITY, CONSIDER INFERIOR ISCHEMIA ABNORMAL ECG Since PREVIOUS TRACING , no significant change noted, except for minimal ST elevation in lead I I. However, there is a right bundle branch block. PREVIOUS TRACIN12/12/2017 01.50 DOCTOR: Kendra Daugherty Interpretating Date/Time 12/12/2017 15:49:42
--- NOTE | 2017-12-12 15:53 | EKG ---
Date Performed: 12/12/2017 Time Performed: 03:26:14 PTAGE: 62 years EKG: SUPRAVENTRICULAR RHYTHM LOW QRS VOLTAGE POSSIBLE ANTERIOR MYOCARDIAL INFARCTION MARKED ST E LEVATION, CONSIDER LATERAL INJURY ACUTE UT Very abnormal EKG with asystole with P-waves. Right bundle branch block. PREVIOUS TRACING : 12/12/2017 03.25 DOCTOR: Kendra Daugherty Interpretating Date/Time 12/12/2017 15:52:44
--- NOTE | 2017-12-12 15:53 | EKG ---
Date Performed: 12/12/2017 Time Performed: 03:24:06 PTAGE: 62 years EKG: UNCERTAIN IRREGULAR RHYTHM RIGHT BUNDLE BRANCH BLOCK INFERIOR MYOCARDIAL INFARCTION MARKED ST ELEVATION, CONSIDER LATERAL INJURY ACUTE NV There is evidence of agonal rhythm. Possibly acu te lateral myocardial infarction. PREVIOUS TRACING : 12/12/2017 02.02 DOCTOR: Kendra Daugherty Interpretating Date/Time 12/12/2017 15:52:12
--- NOTE | 2017-12-12 15:55 | EKG ---
Date Performed: 12/12/2017 Time Performed: 03:27:10 PTAGE: 62 years EKG: Sinus rhythm WITH FIRST DEGREE AV BLOCK RIGHT BUNDLE BRANCH BLOCK ABNORMAL ECG Compared to PREVIOUS TRACING , first degree AV block with right bundle branch block. Cannot exclude a cute inferior infarction, although there is a right bundle branch block. PREVIOUS TRACIN12/12/2017 03.26 DOCTOR: Kendra Daugherty Interpretating Date/Time 12/12/2017 15:54:23
--- NOTE | 2017-12-12 15:56 | EKG ---
Date Performed: 12/12/2017 Time Performed: 03:32:28 PTAGE: 62 years EKG: SINUS TACHYCARDIA WITH FIRST DEGREE AV BLOCK RIGHT BUNDLE BRANCH BLOCK MODERATE T-WAVE ABNO RMALITY, CONSIDER INFERIOR ISCHEMIA ABNORMAL ECG Compared to PREVIOUS TRACING , right bundle branch block continues. Nonspecific ST-T wave change. Inf erior infarction with ST elevation in lead II. Markedly abnormal EKG. PREVIOUS TRACIN12/12/2017 03 .27 DOCTOR: Kendra Daugherty Interpretating Date/Time 12/12/2017 15:55:31
[2017-12-12] MEDS ORDERED: SODIUM BICARBONATE 8.4% INJ 50 MEQ/50 ML SYR IV ONE (15:57)
[2017-12-12] MEDS ORDERED: ATROPINE SULFATE 1 MG/10 ML SYRINGE IV ONE (15:57)
[2017-12-12] MEDS ORDERED: EPINEPHrine HCL (1:10,000) 1 MG/10 ML SYRINGE IV ONE (15:57)
[2017-12-12] MEDS ORDERED: IOHEXOL 350 MG/ML 50 ML BTL (for Cath Lab) OTHER ONE (17:24)
[2017-12-12] MEDS ORDERED: LEVOFLOXACIN 750 MG PREMIX INJ 150 ML IV SCH (23:00)
[2017-12-13] VITALS (10 sets, daily range): BP systolic 100–132; BP diastolic 54–73; PULSE 79–105; RESP 14–20; TEMP 98.2–99.2; O2SAT 93–100
[2017-12-13 02:41] LABS: AUTOMATED NEUTROPHIL # 9.7 TH/MM3 (1.8-7.7); BASOPHIL % 0.2 % (0.0-2.0); EOSINOPHIL # 0.4 TH/MM3 (0-0.4); EOSINOPHIL % 3.1 % (0.0-4.0); HEMATOCRIT 28.2 % (35.0-46.0); HEMOGLOBIN 9.4 GM/DL (11.6-15.3); LYMPH % 15.5 % (9.0-44.0); LYMPHOCYTE # 2.2 TH/MM3 (1.0-4.8); MEAN CELL VOLUME 94.2 FL (80.0-100.0); MEAN CORPUSCULAR HEMOGLOBIN 31.2 PG (27.0-34.0); MEAN CORPUSCULAR HGB CONC 33.1 % (32.0-36.0); MONOCYTE # 1.5 TH/MM3 (0-0.9); NEUT % 70.2 % (16.0-70.0); PLATELET COUNT 120 TH/MM3 (150-450); RED CELL DISTRIBUTION WIDTH 14.2 % (11.6-17.2); WHITE BLOOD COUNT 13.9 TH/MM3 (4.0-11.0)
[2017-12-13 02:51] LABS: INTERNATIONAL NORMALIZED RATIO 1.1 RATIO; PROTHROMBIN TIME - PATIENT 11.4 SEC (9.8-11.6)
[2017-12-13 03:23] LABS: ALBUMIN 2.2 GM/DL (3.4-5.0); BICARBONATE 23.1 MEQ/L (21.0-32.0); CALCIUM-PROTEIN CORRECTED 7.7 MG/DL (8.5-10.1); CREATININE 0.65 MG/DL (0.50-1.00); PHOSPHORUS 1.9 MG/DL (2.5-4.9); TOTAL BILIRUBIN ADULT 0.5 MG/DL (0.2-1.0); TOTAL PROTEIN 5.8 GM/DL (6.4-8.2); TROPONIN I 0.33 NG/ML (0.02-0.05)
[2017-12-13] MEDS: levETIRAcetam INJ 500 MG in SODIUM CHLORIDE 0.9% INJ 100 ML IV SCH ×3 (03:37→21:13)
[2017-12-13] MEDS: CHLORHEXIDINE GLUCONATE 2 % 1 PACK (2 CLOTHS) TOP SCH (03:38)
[2017-12-13] MEDS: HEPARIN SODIUM - SQ 10,000 UNITS/ML VIAL SQ SCH ×3 (03:38→21:13)
[2017-12-13] MEDS: SODIUM CHLOR 0.9% 1000 ML INJ 1,000 ML IV SCH ×2 (05:58→06:01)
[2017-12-13] MEDS: INSULIN ASPART SUPPLEMENTAL SCALE SQ SCH ×4 (06:00→18:00)
[2017-12-13] MEDS: METOPROLOL TARTRATE 25 MG TAB PO SCH ×3 (06:34→18:14)
[2017-12-13] MEDS: LEVOTHYROXINE SODIUM 50 MCG TAB PO SCH (06:35)
[2017-12-13] MEDS: SODIUM CHLORIDE 0.9% FLUSH 10 ML FLUSH IV FLUSH SCH ×3 (08:30→21:14)
[2017-12-13] MEDS: FLUoxetine HCL 10 MG CAP PO SCH (09:58)
[2017-12-13] MEDS: DOCUSATE SODIUM 50 MG/SENNA 8.6 MG TAB PO SCH ×2 (09:58→21:13)
[2017-12-13] MEDS: PRAVASTATIN SOD 20 MG TAB PO SCH (09:58)
[2017-12-13] MEDS: ARIPiprazole 10 MG TAB PO SCH (09:58)
[2017-12-13] MEDS: ASPIRIN EC 81 MG TABEC PO SCH (09:58)
[2017-12-13] MEDS: CLOPIDOGREL 75 MG TAB PO SCH (09:58)
[2017-12-13] MEDS: PANTOPRAZOLE SODIUM 40 MG VIAL IV PUSH SCH (10:01)
[2017-12-13] MEDS: lamoTRIgine 100 MG TAB PO SCH (10:01)
[2017-12-13 10:42] LABS: TROPONIN I 0.25 NG/ML (0.02-0.05)
--- NOTE | 2017-12-13 13:26 | PD.CARD.PN ---
Subjective Subjective Remarks patient seen and examined. small right nares bleed from nasal prong supplemental O2. urinary retention 640cc about. will strait cath. s/p PPM yesterday tolerated well. patient with no complaints, feels weak Objective Medications Current Medications Medications (Trade) Dose Ordered Sig/Jd Route Start Time Stop Time Status Last Admin (NS Flush) 2 ml UNSCH PRN IV FLUSH 12/12/17 00:15 (NS Flush) 2 ml BID IV FLUSH 12/12/17 09:00 12/12/17 21:00 (Tylenol) 650 mg Q4H PRN PO 12/12/17 00:15 (Abilify) 10 mg DAILY PO 12/12/17 09:00 12/13/17 09:58 (Ecotrin Ec) 81 mg DAILY PO 12/12/17 09:00 12/13/17 09:58 (Plavix) 75 mg DAILY PO 12/12/17 09:00 12/13/17 09:58 (PROzac) 10 mg DAILY PO 12/12/17 09:00 12/13/17 09:58 (LaMICtal) 200 mg DAILY PO 12/12/17 09:00 12/13/17 10:01 (Synthroid) 50 mcg DAILY@0600 PO 12/12/17 06:00 12/13/17 06:35 (Pravachol) 20 mg DAILY PO 12/12/17 09:00 12/13/17 09:58 (Remeron) 15 mg HS PO 12/12/17 00:30 (Heparin Inj) 5,000 units Q12HR SQ 12/12/17 09:00 12/13/17 09:59 Levetriacetam 500 mg/Sodium Chloride 105 ml @ 420 mls/hr Q12HR IV 12/12/17 09:00 12/13/17 10:00 (NS Flush) 2 ml UNSCH PRN IV FLUSH 12/12/17 02:45 (NS Flush) 2 ml BID IV FLUSH 12/12/17 09:00 12/12/17 21:00 (Protonix Inj) 40 mg DAILY IV PUSH 12/12/17 09:00 12/13/17 10:01 (Zofran Odt) 4 mg Q6H PRN PO 12/12/17 02:45 (Albuterol Neb) 2.5 mg Q2HR NEB PRN INH 12/12/17 02:45 ([facility]) 1 Q361D XX 12/12/17 02:45 (Chlorhexidine 2% Cloth) 3 pack Taper DAILY@04 TOP 12/12/17 04:00 12/08/18 03:59 12/13/17 03:38 (Chlorhexidine 2% Cloth) 3 pack UNSCH PRN TOP 12/12/17 02:45 (Delphine-Colace) 1 tab BID PO 12/12/17 09:00 12/13/17 09:58 (Milk Of Magnesia Liq) 30 ml Q12H PRN PO 12/12/17 02:45 (Senokot) 17.2 mg Q12H PRN PO 12/12/17 02:45 (Dulcolax Supp) 10 mg DAILY PRN RECTAL 12/12/17 02:45 (Lactulose Liq) 30 ml DAILY PRN PO 12/12/17 02:45 (D50w (Vial) Inj) 50 ml UNSCH PRN IV PUSH 12/12/17 03:15 (Glucagon Inj) 1 mg UNSCH PRN OTHER 12/12/17 03:15 (NovoLOG SUPPLEMENTAL SCALE) 1 Q6HR SQ 12/12/17 06:00 12/12/17 05:27 (Lopressor) 25 mg Q6HR PO 12/13/17 06:15 12/13/17 11:59 Vital Signs / I&O Vital Signs Date Time Temp Pulse Resp B/P (MAP) Pulse Ox O2 Delivery O2 Flow Rate FiO2 12/13/17 12:15 100 Simple Mask 6.00 12/13/17 12:00 83 18 100/64 (76) 100 12/13/17 10:20 99 Nasal Cannula 2.00 12/13/17 08:00 99.2 89 20 113/72 (86) 96 12/13/17 07:00 105 12/13/17 04:00 98.8 100 14 132/73 (92) 97 12/13/17 00:00 98.7 99 16 108/64 (79) 97 12/12/17 23:00 103 12/12/17 22:51 98 Nasal Cannula 1.00 12/12/17 20:00 99.1 102 18 96/57 (70) 99 12/12/17 16:00 98.2 77 16 104/68 (80) 100 12/12/17 16:00 88 12/12/17 13:51 100 Nasal Cannula 4 12/12/17 13:45 35 I/O 12/12/17 12/12/17 12/12/17 12/13/17 12/13/17 12/13/17 07:00 15:00 23:00 07:00 15:00 23:00 Intake Total 1970 ml 20 ml 120 ml 1147 ml 80 ml Output Total 1100 ml 750 ml 175 ml Balance 870 ml 20 ml -630 ml 972 ml 80 ml Intake Oral 120 ml 240 ml IV Total 1970 ml 20 ml 907 ml 80 ml Output Urine Total 1100 ml 750 ml 175 ml Stool Total 0 ml Physical Exam GEN: awake on facemask supplemental O2 100%spo2 on 6L (lowest to use FM due to nose bleed) LUNGS: Clear to auscultation bilaterally. CHEST: PPM with pressure dressing cdi in left upper chest wall CARDIOVASCULAR: Regular with a 1/6 systolic murmur. ABDOMEN: Nontender, nondistended. EXTREMITIES: Show no clubbing, cyanosis or edema. Laboratory Laboratory Tests Test 12/12/17 14:05 12/13/17 02:29 12/13/17 09:46 Phosphorus Level 1.8 MG/DL 1.9 MG/DL Magnesium Level 2.2 MG/DL 2.0 MG/DL Troponin I 0.54 NG/ML 0.33 NG/ML 0.25 NG/ML White Blood Count 13.9 TH/MM3 Red Blood Count 3.00 MIL/MM3 Hemoglobin 9.4 GM/DL Hematocrit 28.2 % Mean Corpuscular Volume 94.2 FL Mean Corpuscular Hemoglobin 31.2 PG Mean Corpuscular Hemoglobin Concent 33.1 % Red Cell Distribution Width 14.2 % Platelet Count 120 TH/MM3 Mean Platelet Volume 9.0 FL Neutrophils (%) (Auto) 70.2 % Lymphocytes (%) (Auto) 15.5 % Monocytes (%) (Auto) 11.0 % Eosinophils (%) (Auto) 3.1 % Basophils (%) (Auto) 0.2 % Neutrophils # (Auto) 9.7 TH/MM3 Lymphocytes # (Auto) 2.2 TH/MM3 Monocytes # (Auto) 1.5 TH/MM3 Eosinophils # (Auto) 0.4 TH/MM3 Basophils # (Auto) 0.0 TH/MM3 CBC Comment DIFF FINAL Differential Comment Prothrombin Time 11.4 SEC Prothromb Time International Ratio 1.1 RATIO Activated Partial Thromboplast Time 24.6 SEC Blood Urea Nitrogen 10 MG/DL Creatinine 0.65 MG/DL Random Glucose 81 MG/DL Total Protein 5.8 GM/DL Albumin 2.2 GM/DL Calcium Level 7.0 MG/DL Alkaline Phosphatase 75 U/L Aspartate Amino Transf (AST/SGOT) 29 U/L Alanine Aminotransferase (ALT/SGPT) 19 U/L Total Bilirubin 0.5 MG/DL Sodium Level 143 MEQ/L Potassium Level 3.9 MEQ/L Chloride Level 111 MEQ/L Carbon Dioxide Level 23.1 MEQ/L Anion Gap 9 MEQ/L Estimat Glomerular Filtration Rate 93 ML/MIN Lactic Acid Level 0.8 mmol/L Protein Corrected Calcium 7.7 MG/DL Total Creatine Kinase 145 U/L 177 U/L Assessment and Plan Assessment and Plan Syncope due to CHB CHB now s/p PPM 12/12/17 - check CXR r/o PTX Severe s/p TAVR 12/10 Urinary retention - strait cath today. Plan for d/c tomorrow. Antoni Madrigal DO Dec 13, 2017 13:26
--- NOTE | 2017-12-13 14:53 | EKG ---
Date Performed: 12/13/2017 Time Performed: 03:12:48 PTAGE: 62 years EKG: Sinus tachycardia Left axis deviation VENTRICULAR PACEMAKER RHYTHM Lateral infarct - age u ndetermined Possible inferior infarct - age undetermined Abnormal ECG NO PREVIOUS TRACING DOCTOR: Lester Sánchez Interpretating Date/Time 12/13/2017 14:52:32
--- NOTE | 2017-12-13 15:10 | EKG ---
Date Performed: 12/12/2017 Time Performed: 14:07:14 PTAGE: 62 years EKG: Sinus rhythm with 1st degree A-V block. Left axis deviation Left bundle branch block Possible inferior infarct - age undetermined Abnormal ECG NO PREVIOUS TRACING DOCTOR: Lester Sánchez Interpretating Date/Time 12/13/2017 15:08:29
--- NOTE | 2017-12-13 16:15 | RADRPT ---
EXAM DATE: 12/13/2017 4:09 PM EDT AGE/SEX: 62 years / Female INDICATIONS: Pacemaker placement. CLINICAL DATA: This is the patient's initial encounter. Patient reports that signs and symptoms have been present for 1 day and indicates a pain score of 0/10. MEDICAL/SURGICAL HISTORY: . Hypercholesterolemia. AFIB. . Splenectomy. Hysterectomy. Aortic v alve replacement. COMPARISON: [facility] [place], CHEST PA & LAT, 12/11/2017. . FINDINGS: Compared December 11. Mild edema pattern now present with small bilateral pleural effusions. Elevated left hemidiaphragm with left basilar opacity. Previous aortic valve surgery sternotomy. Pacer leads overl ie right atrium and right ventricle. CONCLUSION: Mild pulmonary edema pattern with small bilateral effusions. Elevated left hemidiaphragm with left ba silar consolidation. No pneumothorax. Electronically signed by: Robbie Roland MD 12/13/2017 4:14 PM EDT
--- NOTE | 2017-12-13 16:49 | PD.CARD.PN ---
Subjective Subjective Remarks Follow up for Dr. Solorio PPM placed yesterday No complaints Objective Medications Current Medications Medications (Trade) Dose Ordered Sig/Jd Route Start Time Stop Time Status Last Admin (NS Flush) 2 ml UNSCH PRN IV FLUSH 12/12/17 00:15 (NS Flush) 2 ml BID IV FLUSH 12/12/17 09:00 12/12/17 21:00 (Tylenol) 650 mg Q4H PRN PO 12/12/17 00:15 (Abilify) 10 mg DAILY PO 12/12/17 09:00 12/13/17 09:58 (Ecotrin Ec) 81 mg DAILY PO 12/12/17 09:00 12/13/17 09:58 (Plavix) 75 mg DAILY PO 12/12/17 09:00 12/13/17 09:58 (PROzac) 10 mg DAILY PO 12/12/17 09:00 12/13/17 09:58 (LaMICtal) 200 mg DAILY PO 12/12/17 09:00 12/13/17 10:01 (Synthroid) 50 mcg DAILY@0600 PO 12/12/17 06:00 12/13/17 06:35 (Pravachol) 20 mg DAILY PO 12/12/17 09:00 12/13/17 09:58 (Remeron) 15 mg HS PO 12/12/17 00:30 (Heparin Inj) 5,000 units Q12HR SQ 12/12/17 09:00 12/13/17 09:59 Levetriacetam 500 mg/Sodium Chloride 105 ml @ 420 mls/hr Q12HR IV 12/12/17 09:00 12/13/17 10:00 (NS Flush) 2 ml UNSCH PRN IV FLUSH 12/12/17 02:45 (NS Flush) 2 ml BID IV FLUSH 12/12/17 09:00 12/12/17 21:00 (Protonix Inj) 40 mg DAILY IV PUSH 12/12/17 09:00 12/13/17 10:01 (Zofran Odt) 4 mg Q6H PRN PO 12/12/17 02:45 (Albuterol Neb) 2.5 mg Q2HR NEB PRN INH 12/12/17 02:45 ([facility] Nursing Information) 1 Q361D XX 12/12/17 02:45 (Chlorhexidine 2% Cloth) 3 pack Taper DAILY@04 TOP 12/12/17 04:00 12/08/18 03:59 12/13/17 03:38 (Chlorhexidine 2% Cloth) 3 pack UNSCH PRN TOP 12/12/17 02:45 (Delphine-Colace) 1 tab BID PO 12/12/17 09:00 12/13/17 09:58 (Milk Of Magnesia Liq) 30 ml Q12H PRN PO 12/12/17 02:45 (Senokot) 17.2 mg Q12H PRN PO 12/12/17 02:45 (Dulcolax Supp) 10 mg DAILY PRN RECTAL 12/12/17 02:45 (Lactulose Liq) 30 ml DAILY PRN PO 12/12/17 02:45 (D50w (Vial) Inj) 50 ml UNSCH PRN IV PUSH 12/12/17 03:15 (Glucagon Inj) 1 mg UNSCH PRN OTHER 12/12/17 03:15 (NovoLOG SUPPLEMENTAL SCALE) 1 Q6HR SQ 12/12/17 06:00 12/12/17 05:27 (Lopressor) 25 mg Q6HR PO 12/13/17 06:15 12/13/17 11:59 Vital Signs / I&O Vital Signs Date Time Temp Pulse Resp B/P (MAP) Pulse Ox O2 Delivery O2 Flow Rate FiO2 12/13/17 16:00 98.2 85 20 104/54 (71) 93 12/13/17 15:00 85 12/13/17 12:15 100 Simple Mask 6.00 12/13/17 12:00 83 18 100/64 (76) 100 12/13/17 10:20 99 Nasal Cannula 2.00 12/13/17 08:00 99.2 89 20 113/72 (86) 96 12/13/17 07:00 105 12/13/17 04:00 98.8 100 14 132/73 (92) 97 12/13/17 00:00 98.7 99 16 108/64 (79) 97 12/12/17 23:00 103 12/12/17 22:51 98 Nasal Cannula 1.00 12/12/17 20:00 99.1 102 18 96/57 (70) 99 I/O 12/12/17 12/12/17 12/12/17 12/13/17 12/13/17 12/13/17 07:00 15:00 23:00 07:00 15:00 23:00 Intake Total 1970 ml 20 ml 120 ml 1147 ml 80 ml Output Total 1100 ml 750 ml 175 ml Balance 870 ml 20 ml -630 ml 972 ml 80 ml Intake Oral 120 ml 240 ml IV Total 1970 ml 20 ml 907 ml 80 ml Output Urine Total 1100 ml 750 ml 175 ml Stool Total 0 ml Bladder Scan Volume Amount 629 ml Physical Exam GENERAL: NAD SKIN: Warm and dry. HEAD: Atraumatic. Normocephalic. EYES: Pupils equal and round. No scleral icterus. No injection or drainage. ENT: No nasal bleeding or discharge. Mucous membranes pink and moist. NECK: Trachea midline. No JVD. CARDIOVASCULAR: Regular rate and rhythm. 07/12 crescendo-decrescendo murmur to the RSB. Left chest wall with PPM placed, incision c/d/i, mild ecchymosis laterally with some edema RESPIRATORY: No accessory muscle use. Clear to auscultation. Breath sounds equal bilaterally. GASTROINTESTINAL: Abdomen soft, non-tender, nondistended. Hepatic and splenic margins not palpable. MUSCULOSKELETAL: Extremities without clubbing, cyanosis, or edema. No obvious deformities. NEUROLOGICAL: Awake and alert. No obvious cranial nerve deficits. Motor grossly within normal limits. Five out of 5 muscle strength in the arms and legs. Normal speech. PSYCHIATRIC: Appropriate mood and affect; insight and judgment normal. Laboratory Laboratory Tests Test 12/13/17 02:29 12/13/17 09:46 White Blood Count 13.9 TH/MM3 Red Blood Count 3.00 MIL/MM3 Hemoglobin 9.4 GM/DL Hematocrit 28.2 % Mean Corpuscular Volume 94.2 FL Mean Corpuscular Hemoglobin 31.2 PG Mean Corpuscular Hemoglobin Concent 33.1 % Red Cell Distribution Width 14.2 % Platelet Count 120 TH/MM3 Mean Platelet Volume 9.0 FL Neutrophils (%) (Auto) 70.2 % Lymphocytes (%) (Auto) 15.5 % Monocytes (%) (Auto) 11.0 % Eosinophils (%) (Auto) 3.1 % Basophils (%) (Auto) 0.2 % Neutrophils # (Auto) 9.7 TH/MM3 Lymphocytes # (Auto) 2.2 TH/MM3 Monocytes # (Auto) 1.5 TH/MM3 Eosinophils # (Auto) 0.4 TH/MM3 Basophils # (Auto) 0.0 TH/MM3 CBC Comment DIFF FINAL Differential Comment Prothrombin Time 11.4 SEC Prothromb Time International Ratio 1.1 RATIO Activated Partial Thromboplast Time 24.6 SEC Blood Urea Nitrogen 10 MG/DL Creatinine 0.65 MG/DL Random Glucose 81 MG/DL Total Protein 5.8 GM/DL Albumin 2.2 GM/DL Calcium Level 7.0 MG/DL Phosphorus Level 1.9 MG/DL Magnesium Level 2.0 MG/DL Alkaline Phosphatase 75 U/L Aspartate Amino Transf (AST/SGOT) 29 U/L Alanine Aminotransferase (ALT/SGPT) 19 U/L Total Bilirubin 0.5 MG/DL Sodium Level 143 MEQ/L Potassium Level 3.9 MEQ/L Chloride Level 111 MEQ/L Carbon Dioxide Level 23.1 MEQ/L Anion Gap 9 MEQ/L Estimat Glomerular Filtration Rate 93 ML/MIN Lactic Acid Level 0.8 mmol/L Protein Corrected Calcium 7.7 MG/DL Total Creatine Kinase 145 U/L 177 U/L Troponin I 0.33 NG/ML 0.25 NG/ML Imaging Last 24 hours Impressions Chest X-Ray 12/13/17 0000 Signed Impressions: CONCLUSION: Mild pulmonary edema pattern with small bilateral effusions. Elevated left jordon diaphragm with left basilar consolidation. No pneumothorax. Assessment and Plan Problem List: (1) S/P placement of cardiac pacemaker ICD Codes: Z95.0 - Presence of cardiac pacemaker (2) Aortic stenosis ICD Codes: I35.0 - Nonrheumatic aortic (valve) stenosis (3) Right bundle branch block ICD Codes: I45.10 - Unspecified right bundle-branch block Status: Acute (4) Syncope and collapse ICD Codes: R55 - Syncope and collapse Status: Acute (5) S/P TAVR (transcatheter aortic valve replacement) ICD Codes: Z95.2 - Presence of prosthetic heart valve Assessment and Plan 1) Syncope/3rd degree HB s/p PPM placement 2) No pneumothorax noted on CXR 3) Interrogation showing no problems 4) Will defer to primary cardiology team for management Dr. Solorio will be available PRNain Donis DO Dec 13, 2017 16:49
--- NOTE | 2017-12-13 17:08 | HHI.CCPN ---
Subjective Remarks/Hospital Course Hospital Course: This is a 62-year-old female. Date of admission 12/12/2017. Date of consultation 12/12/2017. Past medical history includes seizure disorder last 1982 , bipolar disorder, depression, essential hypertension, hyperlipidemia, hypothyroidism basal cell and ovarian cancer and Hodgkin's lymphoma. On 12/10, patient had elective transcatheter aortic valve replacement on 12/[address] Ross/ comment. She underwent uncomplicated placement of the iliac access. She currently however has a hematoma in the right groin. She was evaluated by EP cardiology and eventually had her temporary pacemaker removed. Today, patient presented to [facility] with a syncopal episode at home in the shower when she lost consciousness. She has no memory of the events. Her sister heard her fall and ran to check on her and found her unconscious. The patient's sister then called a friend to stay with her sister while she called EMS. The friend reports some seizure-like activity although EMS did not witness this. . CT pulmonary angiogram revealed mild pulmonary edema and possible left lower lobe infiltrate per CT brain revealed no acute intracranial findings. Today, patient had a approximately 2 minute episode of complete heart block which became hypotensive. CPR was initiated for 20 seconds weekly chest compressions. Patient received no medications, did however did receive 2 mg lorazepam for seizure activity.. Currently back in normal sinus rhythm/sinus tachycardia with first-degree AV block. Patient has a new right bundle branch block. Dr. Ross was notified and recommended isoproterenol drip currently 2 mg /min with pacer pads currently on. He will see the patient Subjective: 12/13: s/p PPM yesterday. extubated yesterday. Cr improving. lactate normal. denies complaints. tolerating diet. wright removed. Objective Vital Signs Date Time Temp Pulse Resp B/P (MAP) Pulse Ox O2 Delivery O2 Flow Rate FiO2 12/13/17 16:00 98.2 85 20 104/54 (71) 93 12/13/17 12:15 Simple Mask 6.00 12/12/17 13:45 35 Intake and Output 12/13/17 12/13/17 12/14/17 08:00 16:00 00:00 Intake Total 1227 ml Output Total 175 ml Balance 1052 ml Result Diagram: 12/13/1722812/13/17228 Imaging Last Impressions Head CT 12/11/172109 Signed Impressions: CONCLUSION: 1. No acute intracranial abnormality is identified. 2. There is paranasal sinus mucoperiosteal thickening. Chest X-Ray 12/11/17 0000 Signed Impressions: CONCLUSION: 1. Stable chest x-ray with interstitial prominence which could indicate mild p ulmonary edema. 2. There are likely trace bilateral pleural effusions. CT Angiography 12/11/17 Signed Impressions: CONCLUSION: 1. No PE is identified. 2. Atelectasis versus consolidation at the left lung base with trace left pleu ral fluid. Objective Remarks GENERAL: 62-year-old female currently on nasal cannula status SKIN: Warm and dry. No rash HEAD: Atraumatic. Normocephalic. EYES: Pupils equal and round about 4 mm bilaterally and reactive. No scleral icterus. No injection or drainage. ENT: No nasal bleeding or discharge. Mucous membranes pink and moist. Oropharynx without erythema NECK: Trachea midline. No JVD. CARDIOVASCULAR: Tachycardic, RR. HR 104 on my eval. RESPIRATORY: No accessory muscle use. Clear to auscultation. Breath sounds equal bilaterally. GASTROINTESTINAL: Abdomen soft, non-tender, nondistended. no guarding. MUSCULOSKELETAL: Extremities without significant peripheral edema. No obvious deformities. NEUROLOGICAL: Awake and alert. No obvious cranial nerve deficits. Motor grossly within normal limits. Five out of 5 muscle strength in the arms and legs. A/P Assessment and Plan Assessment: 62yF POD 4 s/p TAVR and POD 1 s/p PPM. clinically improving. can transfer to stepdown unit. would prefer to keep one more day given how critically ill she was yesterday. if stable, could consider d/c home tomorrow. Neuro/Psych: Seizure disorder Depression Bipolar disorder Sameera Loaded with levetiracetam 1 g followed by [address] brain revealed no acute intracranial findings/mucoid sinus thickening EEG: negative for ictal activity. Seizure precautions We continue her home medicines including fluoxetine 10 mg daily, lamotrigine 200 mg daily, apriprazole 10 mg daily, and mirtazapine 15 mg at night We will hold buspirone HCl 15 mg twice daily as this is most likely to lower seizure threshold Acetaminophen 650 mg mL every 6 hours as needed fever CV: Recent Luevano S3/23 mm bioprosthetic aortic valve placement 12/10 Complete heart block/symptomatic- now s/p permanent pacemaker. Status post transcatheter aortic valve replaced 12/10 History of first-degree AV block Continue clopidogrel 75 mg and aspirin 81 mg daily Continue lovastatin 20 mg by mouth daily for dyslipidemia Facial/cholecalciferol resume when clinically indicated Was evaluated by Dr. Solorio last hospitalization Dr. Ross/cardiology will follow saline lock ivf. Echocardiograms 12/11 revealed EF 60-65%. Mild LVH. PAP 40.7 mmHg Resp: Nasal cannula to maintain saturations greater than or equal to 92% Incentive spirometry while awake CT pulmonary angiogram 12/12 revealed no pulmonary embolism. Atelectasis versus consolidation at the left lung base with trace left pleural fluid. GI: Hypoalbuminemia heart healthy diet as tolerated. Pantoprazole for GI prophylaxis Docusate sodium/senna 1 tablet twice daily for bowel regimen : No indication for Wright catheter Endo: Hypothyroidism Hyperglycemia Levothyroxine 50 mcg by mouth daily. Continue. SSI to maintain euglycemia/low regimen every 6 hours of knobby log Renal: Creatinine currently within normal limits Monitor urine output Accurate I's and O's Heme: Leukocytosis History of Hodgkin's lymphoma History of ovarian and basal cell carcinoma Monitor CBC daily. Follow trends. ID: Monitor for signs and symptomatology of infection FEN: ICU electrolyte protocol. MSK: PT evaluate and treat Access -Utilize peripheral IV. Prophylaxis -GI -pantoprazole -DVT -SCD/heparin subcu Fitz Real MD Dec 13, 2017 17:08
[2017-12-13] MEDS: MIRTAZAPINE 15 MG TAB PO SCH (21:13)
[2017-12-14] VITALS (27 sets, daily range): BP systolic 101–133; BP diastolic 60–68; PULSE 70–90; RESP 16–20; TEMP 97.3–98.7; O2SAT 94–100
[2017-12-14] MEDS: CHLORHEXIDINE GLUCONATE 2 % 1 PACK (2 CLOTHS) TOP SCH (04:00)
[2017-12-14] MEDS: INSULIN ASPART SUPPLEMENTAL SCALE SQ SCH ×2 (05:11)
[2017-12-14] MEDS: LEVOTHYROXINE SODIUM 50 MCG TAB PO SCH (05:11)
[2017-12-14] MEDS: METOPROLOL TARTRATE 25 MG TAB PO SCH ×4 (05:11→18:19)
[2017-12-14 06:04] LABS: HEMATOCRIT 28.8 % (35.0-46.0); HEMOGLOBIN 9.6 GM/DL (11.6-15.3); MEAN CORPUSCULAR HEMOGLOBIN 31.7 PG (27.0-34.0); MEAN CORPUSCULAR HGB CONC 33.4 % (32.0-36.0); MEAN PLATELET VOLUME 9.1 FL (7.0-11.0); PLATELET COUNT 124 TH/MM3 (150-450); RED BLOOD COUNT 3.03 MIL/MM3 (4.00-5.30); WHITE BLOOD COUNT 12.7 TH/MM3 (4.0-11.0)
[2017-12-14 06:16] LABS: BICARBONATE 25.6 MEQ/L (21.0-32.0); CALCIUM 7.9 MG/DL (8.5-10.1); CREATININE 0.71 MG/DL (0.50-1.00)
[2017-12-14] MEDS ORDERED: FUROSEMIDE 20 MG/2 ML VIAL IV PUSH ONE (08:30)
[2017-12-14] MEDS: SODIUM CHLORIDE 0.9% FLUSH 10 ML FLUSH IV FLUSH SCH ×2 (09:00)
[2017-12-14] MEDS: FLUoxetine HCL 10 MG CAP PO SCH (09:49)
[2017-12-14] MEDS: PANTOPRAZOLE SODIUM 40 MG VIAL IV PUSH SCH (09:49)
[2017-12-14] MEDS: ASPIRIN EC 81 MG TABEC PO SCH (09:49)
[2017-12-14] MEDS: HEPARIN SODIUM - SQ 10,000 UNITS/ML VIAL SQ SCH (09:49)
[2017-12-14] MEDS: PRAVASTATIN SOD 20 MG TAB PO SCH (09:50)
[2017-12-14] MEDS: lamoTRIgine 100 MG TAB PO SCH (09:50)
[2017-12-14] MEDS: ARIPiprazole 10 MG TAB PO SCH (09:50)
[2017-12-14] MEDS: CLOPIDOGREL 75 MG TAB PO SCH (09:50)
[2017-12-14] MEDS: DOCUSATE SODIUM 50 MG/SENNA 8.6 MG TAB PO SCH (09:50)
--- NOTE | 2017-12-14 10:22 | HHI.CCPN ---
Subjective Remarks/Hospital Course Hospital Course: This is a 62-year-old female. Date of admission 12/12/2017. Date of consultation 12/12/2017. Past medical history includes seizure disorder last 1982 , bipolar disorder, depression, essential hypertension, hyperlipidemia, hypothyroidism basal cell and ovarian cancer and Hodgkin's lymphoma. On 12/10, patient had elective transcatheter aortic valve replacement on 12/[address] Ross/ comment. She underwent uncomplicated placement of the iliac access. She currently however has a hematoma in the right groin. She was evaluated by EP cardiology and eventually had her temporary pacemaker removed. Today, patient presented to [facility] with a syncopal episode at home in the shower when she lost consciousness. She has no memory of the events. Her sister heard her fall and ran to check on her and found her unconscious. The patient's sister then called a friend to stay with her sister while she called EMS. The friend reports some seizure-like activity although EMS did not witness this. . CT pulmonary angiogram revealed mild pulmonary edema and possible left lower lobe infiltrate per CT brain revealed no acute intracranial findings. Today, patient had a approximately 2 minute episode of complete heart block which became hypotensive. CPR was initiated for 20 seconds weekly chest compressions. Patient received no medications, did however did receive 2 mg lorazepam for seizure activity.. Currently back in normal sinus rhythm/sinus tachycardia with first-degree AV block. Patient has a new right bundle branch block. Dr. Ross was notified and recommended isoproterenol drip currently 2 mg /min with pacer pads currently on. He will see the patient Subjective: 12/13: s/p PPM yesterday. extubated yesterday. Cr improving. lactate normal. denies complaints. tolerating diet. wright removed. 12/14: urinary retention overnight. also continues to have 3L o2 requirement. given lasix 20mg iv x 1 this AM. patient denies complaints. tolerating diet. Objective Vital Signs Date Time Temp Pulse Resp B/P (MAP) Pulse Ox O2 Delivery O2 Flow Rate FiO2 12/14/17 08:18 97.5 82 18 111/68 (82) 99 12/14/17 08:18 Nasal Cannula 3.00 12/12/17 13:45 35 Intake and Output 12/14/17 12/14/17 12/15/17 08:00 16:00 00:00 Intake Total 240 ml Output Total 500 ml Balance -260 ml Result Diagram: 12/14/17 0552 12/14/17 0552 Imaging Last Impressions Head CT 12/11/172109 Signed Impressions: CONCLUSION: 1. No acute intracranial abnormality is identified. 2. There is paranasal sinus mucoperiosteal thickening. Chest X-Ray 12/11/17 0000 Signed Impressions: CONCLUSION: 1. Stable chest x-ray with interstitial prominence which could indicate mild p ulmonary edema. 2. There are likely trace bilateral pleural effusions. CT Angiography 12/11/17 0000 Signed Impressions: CONCLUSION: 1. No PE is identified. 2. Atelectasis versus consolidation at the left lung base with trace left pleu ral fluid. Objective Remarks GENERAL: 62-year-old female currently on nasal cannula status SKIN: Warm and dry. No rash HEAD: Atraumatic. Normocephalic. EYES: Pupils equal and round about 4 mm bilaterally and reactive. No scleral icterus. No injection or drainage. ENT: No nasal bleeding or discharge. Mucous membranes pink and moist. Oropharynx without erythema NECK: Trachea midline. No JVD. CARDIOVASCULAR: no longer tachycardic on my eval: regular rate and rhythm. RESPIRATORY: No accessory muscle use. Clear to auscultation. Breath sounds equal bilaterally. GASTROINTESTINAL: Abdomen soft, non-tender, nondistended. no guarding. MUSCULOSKELETAL: Extremities without significant peripheral edema. No obvious deformities. NEUROLOGICAL: Awake and alert. No obvious cranial nerve deficits. Motor grossly within normal limits. Five out of 5 muscle strength in the arms and legs. A/P Assessment and Plan Assessment: 62yF POD 5 s/p TAVR and POD 2 s/p PPM. clinically improving. will need to be off oxygen therapy and voiding on her own before hospital discharge. appears very deconditioned after her acute illness. likely not safe to discharge today unless she improves. Neuro/Psych: Seizure disorder Depression Bipolar disorder Sameera Loaded with levetiracetam 1 g followed by [address] brain revealed no acute intracranial findings/mucoid sinus thickening EEG: negative for ictal activity. Seizure precautions We continue her home medicines including fluoxetine 10 mg daily, lamotrigine 200 mg daily, apriprazole 10 mg daily, and mirtazapine 15 mg at night We will hold buspirone HCl 15 mg twice daily as this is most likely to lower seizure threshold Acetaminophen 650 mg mL every 6 hours as needed fever CV: Recent Luevano S3/23 mm bioprosthetic aortic valve placement 12/10 Complete heart block/symptomatic- now s/p permanent pacemaker. Status post transcatheter aortic valve replaced 12/10 History of first-degree AV block Continue clopidogrel 75 mg and aspirin 81 mg daily Continue lovastatin 20 mg by mouth daily for dyslipidemia Facial/cholecalciferol resume when clinically indicated Was evaluated by Dr. Solorio last hospitalization Dr. Ross/cardiology will follow saline lock ivf. lasix 20mg iv x 1. Echocardiograms 12/11 revealed EF 60-65%. Mild LVH. PAP 40.7 mmHg Resp: Nasal cannula to maintain saturations greater than or equal to 92% Incentive spirometry while awake CT pulmonary angiogram 12/12 revealed no pulmonary embolism. Atelectasis versus consolidation at the left lung base with trace left pleural fluid. GI: Hypoalbuminemia heart healthy diet as tolerated. Pantoprazole for GI prophylaxis Docusate sodium/senna 1 tablet twice daily for bowel regimen : No indication for Wright catheter Endo: Hypothyroidism Hyperglycemia Levothyroxine 50 mcg by mouth daily. Continue. SSI to maintain euglycemia/low regimen every 6 hours of knobby log Renal: Creatinine currently within normal limits Monitor urine output Accurate I's and O's Heme: Leukocytosis History of Hodgkin's lymphoma History of ovarian and basal cell carcinoma Monitor CBC daily. Follow trends. ID: Monitor for signs and symptomatology of infection FEN: ICU electrolyte protocol. MSK: PT evaluate and treat Access -Utilize peripheral IV. Prophylaxis -GI -pantoprazole -DVT -SCD/heparin subcu dispo: likely discharge home in the AM. will consult hospitalist services to continue management. Fitz Real MD Dec 14, 2017 10:22
--- NOTE | 2017-12-14 11:20 | HHI.PR ---
Addendum to Inpatient Note Additional Information Received pt from critical care. Patient is currently doing well, sitting in her chair. Per RN, she has over 600cc fluid in the bladder. We will do a straight cath and observe. If needed, we can start Tamsulosin. D/C Q6hr blood glucose check. Tatyana Guthrie DO Dec 14, 2017 11:20 am
[2017-12-14] MEDS: levETIRAcetam INJ 500 MG in SODIUM CHLORIDE 0.9% INJ 100 ML IV SCH (11:45)
--- NOTE | 2017-12-14 12:29 | PD.CARD.PN ---
Subjective Subjective Remarks patient seen and examined. still with nasal prong supplemental O2. urinary retention 640cc overnight. Ambulated about 50feet with fatigue and leg weakness. feels deconditioned. s/p PPM 12/12 tolerated well. patient with no complaints, feels weak Objective Medications Current Medications Medications (Trade) Dose Ordered Sig/Jd Route Start Time Stop Time Status Last Admin (NS Flush) 2 ml UNSCH PRN IV FLUSH 12/12/17 00:15 (NS Flush) 2 ml BID IV FLUSH 12/12/17 09:00 12/14/17 09:00 (Tylenol) 650 mg Q4H PRN PO 12/12/17 00:15 12/13/17 17:06 (Abilify) 10 mg DAILY PO 12/12/17 09:00 12/14/17 09:50 (Ecotrin Ec) 81 mg DAILY PO 12/12/17 09:00 12/14/17 09:49 (Plavix) 75 mg DAILY PO 12/12/17 09:00 12/14/17 09:50 (PROzac) 10 mg DAILY PO 12/12/17 09:00 12/14/17 09:49 (LaMICtal) 200 mg DAILY PO 12/12/17 09:00 12/14/17 09:50 (Synthroid) 50 mcg DAILY@0600 PO 12/12/17 06:00 12/14/17 05:11 (Pravachol) 20 mg DAILY PO 12/12/17 09:00 12/14/17 09:50 (Remeron) 15 mg HS PO 12/12/17 00:30 12/13/17 21:13 (Heparin Inj) 5,000 units Q12HR SQ 12/12/17 09:00 12/14/17 09:49 Levetriacetam 500 mg/Sodium Chloride 105 ml @ 420 mls/hr Q12HR IV 12/12/17 09:00 12/14/17 11:45 (NS Flush) 2 ml UNSCH PRN IV FLUSH 12/12/17 02:45 (NS Flush) 2 ml BID IV FLUSH 12/12/17 09:00 12/14/17 09:00 (Zofran Odt) 4 mg Q6H PRN PO 12/12/17 02:45 (Albuterol Neb) 2.5 mg Q2HR NEB PRN INH 12/12/17 02:45 ([facility] [place] Nursing Information) 1 Q361D XX 12/12/17 02:45 (Chlorhexidine 2% Cloth) 3 pack Taper DAILY@04 TOP 12/12/17 04:00 12/08/18 03:59 12/13/17 03:38 (Chlorhexidine 2% Cloth) 3 pack UNSCH PRN TOP 12/12/17 02:45 (Delphine-Colace) 1 tab BID PO 12/12/17 09:00 12/14/17 09:50 (Milk Of Magnesia Liq) 30 ml Q12H PRN PO 12/12/17 02:45 (Senokot) 17.2 mg Q12H PRN PO 12/12/17 02:45 (Dulcolax Supp) 10 mg DAILY PRN RECTAL 12/12/17 02:45 (Lactulose Liq) 30 ml DAILY PRN PO 12/12/17 02:45 (D50w (Vial) Inj) 50 ml UNSCH PRN IV PUSH 12/12/17 03:15 (Glucagon Inj) 1 mg UNSCH PRN OTHER 12/12/17 03:15 (Lopressor) 25 mg Q6HR PO 12/13/17 06:15 12/14/17 11:45 (Protonix) 40 mg DAILY PO 12/15/17 09:00 Vital Signs / I&O Vital Signs Date Time Temp Pulse Resp B/P (MAP) Pulse Ox O2 Delivery O2 Flow Rate FiO2 12/14/17 10:00 84 12/14/17 09:00 84 12/14/17 08:18 97.5 82 18 111/68 (82) 99 12/14/17 08:18 Nasal Cannula 3.00 12/14/17 08:00 80 12/14/17 07:00 79 12/14/17 06:00 77 12/14/17 05:00 76 12/14/17 04:00 75 12/14/17 04:00 Nasal Cannula 3.00 12/14/17 04:00 98.0 75 18 115/65 (82) 98 12/14/17 03:00 72 12/14/17 02:00 73 12/14/17 01:00 71 12/14/17 00:00 70 6/10/18 00:00 98.1 70 20 115/63 (80) 97 12/14/17 00:00 Nasal Cannula 3.00 12/13/17 20:33 99 Simple Mask 6.00 12/13/17 20:33 98.5 80 16 104/54 (71) 99 12/13/17 19:00 79 12/13/17 18:19 20 12/13/17 18:15 99 Simple Mask 6.00 12/13/17 16:00 98.2 85 20 104/54 (71) 93 12/13/17 15:00 85 I/O 12/13/17 12/13/17 12/13/17 12/14/17 12/14/17 12/14/17 07:00 15:00 23:00 07:00 15:00 23:00 Intake Total 1147 ml 80 ml 240 ml Output Total 175 ml 750 ml 500 ml Balance 972 ml 80 ml -750 ml -260 ml Intake Oral 240 ml 240 ml IV Total 907 ml 80 ml Output Urine Total 175 ml 750 ml 500 ml Stool Total 0 ml Bladder Scan Volume Amount 629 ml 134 ml # Voids 2 # Bowel Movements 0 Physical Exam GEN: awake on facemask supplemental O2 100%spo2 on 6L (lowest to use FM due to nose bleed) LUNGS: Clear to auscultation bilaterally. CHEST: PPM with pressure dressing cdi in left upper chest wall CARDIOVASCULAR: Regular with a 1/6 systolic murmur. ABDOMEN: Nontender, nondistended. EXTREMITIES: Show no clubbing, cyanosis or edema. Laboratory Laboratory Tests Test 12/14/17 05:52 White Blood Count 12.7 TH/MM3 Red Blood Count 3.03 MIL/MM3 Hemoglobin 9.6 GM/DL Hematocrit 28.8 % Mean Corpuscular Volume 95.0 FL Mean Corpuscular Hemoglobin 31.7 PG Mean Corpuscular Hemoglobin Concent 33.4 % Red Cell Distribution Width 14.0 % Platelet Count 124 TH/MM3 Mean Platelet Volume 9.1 FL Blood Urea Nitrogen 13 MG/DL Creatinine 0.71 MG/DL Random Glucose 94 MG/DL Calcium Level 7.9 MG/DL Sodium Level 141 MEQ/L Potassium Level 4.2 MEQ/L Chloride Level 107 MEQ/L Carbon Dioxide Level 25.6 MEQ/L Anion Gap 8 MEQ/L Estimat Glomerular Filtration Rate 84 ML/MIN Assessment and Plan Problem List: (1) S/P placement of cardiac pacemaker ICD Codes: Z95.0 - Presence of cardiac pacemaker (2) Aortic stenosis ICD Codes: I35.0 - Nonrheumatic aortic (valve) stenosis (3) Right bundle branch block ICD Codes: I45.10 - Unspecified right bundle-branch block Status: Acute (4) Syncope and collapse ICD Codes: R55 - Syncope and collapse Status: Acute (5) S/P TAVR (transcatheter aortic valve replacement) ICD Codes: Z95.2 - Presence of prosthetic heart valve Assessment and Plan Syncope due to CHB CHB now s/p PPM 12/12/17, normal function by interrogation Severe s/p TAVR 12/10 Urinary retention - needs to ambulate. Seen by PT stable for d/c from cardiac standpoint. Antoni Madrigal DO Dec 14, 2017 12:29
[2017-12-15] VITALS (25 sets, daily range): BP systolic 118–135; BP diastolic 67–80; PULSE 76–92; RESP 16–20; TEMP 97.6–98.4; O2SAT 90–94
[2017-12-15] MEDS: levETIRAcetam INJ 500 MG in SODIUM CHLORIDE 0.9% INJ 100 ML IV SCH ×3 (01:19→20:53)
[2017-12-15] MEDS: METOPROLOL TARTRATE 25 MG TAB PO SCH ×4 (01:20→18:28)
[2017-12-15] MEDS: SODIUM CHLORIDE 0.9% FLUSH 10 ML FLUSH IV FLUSH SCH ×5 (01:20→21:00)
[2017-12-15] MEDS: MIRTAZAPINE 15 MG TAB PO SCH ×2 (01:20→20:51)
[2017-12-15] MEDS: HEPARIN SODIUM - SQ 10,000 UNITS/ML VIAL SQ SCH ×3 (01:20→20:51)
[2017-12-15] MEDS: DOCUSATE SODIUM 50 MG/SENNA 8.6 MG TAB PO SCH ×3 (01:20→20:50)
[2017-12-15] MEDS: CHLORHEXIDINE GLUCONATE 2 % 1 PACK (2 CLOTHS) TOP SCH (01:21)
[2017-12-15 02:31] LABS: AMORPHOUS SEDIMENT, URINE RARE; BILIRUBIN, URINE NEG (NEG); BLOOD, URINE SMALL (NEG); GLUCOSE,URINE NEG (NEG); KETONE, URINE 10 mg/dL (NEG); MUCUS URINE FEW /lpf (OCC); NITRITE,URINE NEG (NEG); PH, URINE 5.5 (5.0-8.5); SQUAMOUS EPITHELIAL CELL URINE <1 /hpf (0-5); URINE COLOR YELLOW (YELLW/STRAW); URINE LEUKOCYTE ESTERASE SMALL (NEG)
[2017-12-15 07:04] LABS: HEMATOCRIT 29.1 % (35.0-46.0); HEMOGLOBIN 9.7 GM/DL (11.6-15.3); MEAN CELL VOLUME 93.6 FL (80.0-100.0); MEAN CORPUSCULAR HEMOGLOBIN 31.2 PG (27.0-34.0); MEAN CORPUSCULAR HGB CONC 33.4 % (32.0-36.0); MEAN PLATELET VOLUME 10.2 FL (7.0-11.0); PLATELET COUNT 158 TH/MM3 (150-450); RED BLOOD COUNT 3.11 MIL/MM3 (4.00-5.30); WHITE BLOOD COUNT 12.9 TH/MM3 (4.0-11.0)
[2017-12-15 07:35] LABS: BICARBONATE 26.4 MEQ/L (21.0-32.0); CALCIUM 8.1 MG/DL (8.5-10.1); CREATININE 0.62 MG/DL (0.50-1.00)
[2017-12-15] MEDS: LEVOTHYROXINE SODIUM 50 MCG TAB PO SCH (07:44)
--- NOTE | 2017-12-15 07:57 | PD.CARD.PN ---
Subjective Subjective Remarks did well overnight. no events on telemetry. s/p straight cath yesterday for urinary retention. (Aurora Ayala) Objective Medications Current Medications Medications (Trade) Dose Ordered Sig/Jd Route Start Time Stop Time Status Last Admin (NS Flush) 2 ml UNSCH PRN IV FLUSH 12/12/17 00:15 (NS Flush) 2 ml BID IV FLUSH 12/12/17 09:00 12/15/17 01:20 (Tylenol) 650 mg Q4H PRN PO 12/12/17 00:15 12/13/17 17:06 (Abilify) 10 mg DAILY PO 12/12/17 09:00 12/14/17 09:50 (Ecotrin Ec) 81 mg DAILY PO 12/12/17 09:00 12/14/17 09:49 (Plavix) 75 mg DAILY PO 12/12/17 09:00 12/14/17 09:50 (PROzac) 10 mg DAILY PO 12/12/17 09:00 12/14/17 09:49 (LaMICtal) 200 mg DAILY PO 12/12/17 09:00 12/14/17 09:50 (Synthroid) 50 mcg DAILY@0600 PO 12/12/17 06:00 12/15/17 07:44 (Pravachol) 20 mg DAILY PO 12/12/17 09:00 12/14/17 09:50 (Remeron) 15 mg HS PO 12/12/17 00:30 12/15/17 01:20 (Heparin Inj) 5,000 units Q12HR SQ 12/12/17 09:00 12/15/17 01:20 Levetriacetam 500 mg/Sodium Chloride 105 ml @ 420 mls/hr Q12HR IV 12/12/17 09:00 12/15/17 01:19 (NS Flush) 2 ml UNSCH PRN IV FLUSH 12/12/17 02:45 (NS Flush) 2 ml BID IV FLUSH 12/12/17 09:00 12/15/17 01:21 (Zofran Odt) 4 mg Q6H PRN PO 12/12/17 02:45 (Albuterol Neb) 2.5 mg Q2HR NEB PRN INH 12/12/17 02:45 [place] [place] 1 Q361D XX 12/12/17 02:45 12/12/17 02:45 (Chlorhexidine 2% Cloth) 3 pack Taper DAILY@04 TOP 12/12/17 04:00 12/08/18 03:59 12/15/17 01:21 (Chlorhexidine 2% Cloth) 3 pack UNSCH PRN TOP 12/12/17 02:45 (Delphine-Colace) 1 tab BID PO 12/12/17 09:00 12/15/17 01:20 (Milk Of Magnesia Liq) 30 ml Q12H PRN PO 12/12/17 02:45 (Senokot) 17.2 mg Q12H PRN PO 12/12/17 02:45 (Dulcolax Supp) 10 mg DAILY PRN RECTAL 12/12/17 02:45 (Lactulose Liq) 30 ml DAILY PRN PO 12/12/17 02:45 (D50w (Vial) Inj) 50 ml UNSCH PRN IV PUSH 12/12/17 03:15 (Glucagon Inj) 1 mg UNSCH PRN OTHER 12/12/17 03:15 (Lopressor) 25 mg Q6HR PO 12/13/17 06:15 12/15/17 07:44 (Protonix) 40 mg DAILY PO 12/15/17 09:00 Vital Signs / I&O Vital Signs Date Time Temp Pulse Resp B/P (MAP) Pulse Ox O2 Delivery O2 Flow Rate FiO2 12/15/17 06:12 80 12/15/17 05:00 84 12/15/17 04:00 76 18 94 12/15/17 04:00 76 12/15/17 04:00 77 12/15/17 04:00 Nasal Cannula 2.00 12/15/17 03:00 76 12/15/17 02:00 82 12/15/17 01:00 84 12/15/17 00:00 98.4 88 20 128/73 (91) 94 12/15/17 00:00 86 12/15/17 00:00 86 12/15/17 00:00 Nasal Cannula 2.00 12/14/17 23:00 88 12/14/17 22:00 84 12/14/17 21:00 84 12/14/17 20:45 85 12/14/17 20:45 Room Air 21 12/14/17 20:26 98.7 87 18 101/62 (75) 94 12/14/17 20:14 21 12/14/17 20:00 86 12/14/17 19:00 84 12/14/17 18:00 88 12/14/17 17:00 84 12/14/17 16:00 85 12/14/17 15:00 84 12/14/17 15:00 98.4 84 18 108/60 (76) 100 12/14/17 14:00 80 12/14/17 13:00 88 12/14/17 12:00 90 12/14/17 11:00 97.3 87 16 133/66 (88) 100 12/14/17 11:00 85 12/14/17 10:00 84 12/14/17 09:00 84 12/14/17 08:18 97.5 82 18 111/68 (82) 99 12/14/17 08:18 Nasal Cannula 3.00 12/14/17 08:00 80 I/O 12/14/17 12/14/17 12/14/17 12/15/17 12/15/17 12/15/17 07:00 15:00 23:00 07:00 15:00 23:00 Intake Total 240 ml 720 ml 75 ml Output Total 500 ml 1300 ml 951 ml Balance -260 ml -580 ml -876 ml Intake Oral 240 ml 720 ml 75 ml Output Urine Total 500 ml 1300 ml 950 ml Stool Total 1 ml Bladder Scan Volume Amount 654 ml 354 ml 629 ml # Bowel Movements 0 1 Physical Exam GENERAL: SKIN: Warm and dry. HEAD: Atraumatic. Normocephalic. EYES: Pupils equal and round. No scleral icterus. ENT: No nasal bleeding or discharge. NECK: Trachea midline. No JVD. CARDIOVASCULAR: Regular rate and rhythm. II/ systolic murmur RESPIRATORY: No accessory muscle use. Clear to auscultation. Breath sounds equal bilaterally. GASTROINTESTINAL: Abdomen soft, non-tender, nondistended. MUSCULOSKELETAL: Extremities without clubbing, cyanosis, or edema. No obvious deformities. NEUROLOGICAL: Awake and alert. No obvious cranial nerve deficits. Normal speech. PSYCHIATRIC: Appropriate mood and affect; insight and judgment normal. Laboratory Laboratory Tests Test 12/15/17 01:11 12/15/17 05:43 12/15/17 05:45 Urine Color YELLOW Urine Turbidity CLEAR Urine pH 5.5 Urine Specific [place] 1.015 Urine Protein NEG mg/dL Urine Glucose (UA) NEG mg/dL Urine Ketones 10 mg/dL Urine Occult Blood SMALL Urine Nitrite NEG Urine Bilirubin NEG Urine Urobilinogen LESS THAN 2.0 MG/DL Urine Leukocyte Esterase SMALL Urine RBC 7 /hpf Urine WBC 3 /hpf Urine Squamous Epithelial Cells <1 /hpf Urine Amorphous Sediment RARE Urine Mucus FEW /lpf Microscopic Urinalysis Comment CATH-CULT NOT IND White Blood Count 12.9 TH/MM3 Red Blood Count 3.11 MIL/MM3 Hemoglobin 9.7 GM/DL Hematocrit 29.1 % Mean Corpuscular Volume 93.6 FL Mean Corpuscular Hemoglobin 31.2 PG Mean Corpuscular Hemoglobin Concent 33.4 % Red Cell Distribution Width 14.0 % Platelet Count 158 TH/MM3 Mean Platelet Volume 10.2 FL Blood Urea Nitrogen 11 MG/DL Creatinine 0.62 MG/DL Random Glucose 82 MG/DL Calcium Level 8.1 MG/DL Sodium Level 141 MEQ/L Potassium Level 3.7 MEQ/L Chloride Level 103 MEQ/L Carbon Dioxide Level 26.4 MEQ/L Anion Gap 12 MEQ/L Estimat Glomerular Filtration Rate 98 ML/MIN (Aurora Ayala) Assessment and Plan Problem List: (1) S/P placement of cardiac pacemaker ICD Codes: Z95.0 - Presence of cardiac pacemaker (2) Aortic stenosis ICD Codes: I35.0 - Nonrheumatic aortic (valve) stenosis (3) Right bundle branch block ICD Codes: I45.10 - Unspecified right bundle-branch block Status: Acute (4) Syncope and collapse ICD Codes: R55 - Syncope and collapse Status: Acute (5) S/P TAVR (transcatheter aortic valve replacement) ICD Codes: Z95.2 - Presence of prosthetic heart valve Assessment and Plan 62 yo F with severe s/p TAVR 12/10/2017 who presented with syncope with complete heart block now s/p PPM 12/12/17 feeling well, no chest pain or near syncope sx. stable for discharge from cardio perspective (Aurora Ayala) Assessment and Plan watch till tomorrow (Ferny Ross MD) Aurora Ayala Dec 15, 2017 07:57 Ferny Ross MD Dec 16, 2017 08:34
[2017-12-15] MEDS: lamoTRIgine 100 MG TAB PO SCH (08:14)
[2017-12-15] MEDS: PRAVASTATIN SOD 20 MG TAB PO SCH (08:14)
[2017-12-15] MEDS: CLOPIDOGREL 75 MG TAB PO SCH (08:14)
[2017-12-15] MEDS: FLUoxetine HCL 10 MG CAP PO SCH (08:14)
[2017-12-15] MEDS: ARIPiprazole 10 MG TAB PO SCH (08:15)
[2017-12-15] MEDS: ASPIRIN EC 81 MG TABEC PO SCH (08:15)
[2017-12-15] MEDS: PANTOPRAZOLE SOD 40 MG DELAYED RELEASE TAB PO SCH (08:17)
[2017-12-15] MEDS ORDERED: LEVE500 PO (10:11)
[2017-12-15] MEDS ORDERED: METO1TAB43 PO (10:11)
--- NOTE | 2017-12-15 10:14 | HHI.DS ---
Discharge Summary Admission Date Dec 11, 2017 at 22:47 Discharge Date: Dec 15, 2017 Admitting Diagnosis SYNCOPE, new right bundle branch block (1) aortic stenosis Diagnosis: Principal (2) Right bundle branch block ICD Code: I45.10 - Unspecified right bundle-branch block Diagnosis: Principal Status: Acute (3) Syncope and collapse ICD Code: R55 - Syncope and collapse Diagnosis: Principal Status: Acute (4) Infiltrate of lung present on imaging of chest ICD Code: R91.8 - Other nonspecific abnormal finding of lung field Diagnosis: Principal Status: Acute (5) Aortic stenosis ICD Code: I35.0 - Nonrheumatic aortic (valve) stenosis Diagnosis: Principal (6) S/P TAVR (transcatheter aortic valve replacement) ICD Code: Z95.2 - Presence of prosthetic heart valve Diagnosis: Principal (7) S/P placement of cardiac pacemaker ICD Code: Z95.0 - Presence of cardiac pacemaker Diagnosis: Principal Procedures TAVR 12/10/17 PPM 12/12/17 Brief History - From Admission 62-year-old female with a past medical history significant for hypothyroidism, depression, hyperlipidemia, history of Hodgkin's lymphoma and a history of aortic stenosis status post TAVR on 12/10 presents the emergency department after a syncopal episode. The patient was in the shower when she lost consciousness. She has no memory of the events. Her sister heard her fall and ran to check on her and found her unconscious. The patient's sister then called a friend to stay with her sister while she called EMS. The friend reports some seizure- like activity although the symptoms are did not witness this. The patient denies any chest pain or shortness of breath. No fever/chills. No abdominal pain. No nausea/vomiting/diarrhea. No lateralizing signs/symptoms. CBC/BMP: 12/15/17 0543 12/15/17 0545 Significant Findings Laboratory Tests Test 12/12/17 14:05 12/13/17 02:29 12/13/17 09:46 12/14/17 05:52 Phosphorus Level 1.8 MG/DL (2.5-4.9) 1.9 MG/DL (2.5-4.9) Troponin I 0.54 NG/ML (0.02-0.05) 0.33 NG/ML (0.02-0.05) 0.25 NG/ML (0.02-0.05) White Blood Count 13.9 TH/MM3 (4.0-11.0) 12.7 TH/MM3 (4.0-11.0) Red Blood Count 3.00 MIL/MM3 (4.00-5.30) 3.03 MIL/MM3 (4.00-5.30) Hemoglobin 9.4 GM/DL (11.6-15.3) 9.6 GM/DL (11.6-15.3) Hematocrit 28.2 % (35.0-46.0) 28.8 % (35.0-46.0) Platelet Count 120 TH/MM3 (150-450) 124 TH/MM3 (150-450) Neutrophils (%) (Auto) 70.2 % (16.0-70.0) Monocytes (%) (Auto) 11.0 % (0.0-8.0) Neutrophils # (Auto) 9.7 TH/MM3 (1.8-7.7) Monocytes # (Auto) 1.5 TH/MM3 (0-0.9) Total Protein 5.8 GM/DL (6.4-8.2) Albumin 2.2 GM/DL (3.4-5.0) Calcium Level 7.0 MG/DL (8.5-10.1) 7.9 MG/DL (8.5-10.1) Chloride Level 111 MEQ/L (98-107) Protein Corrected Calcium 7.7 MG/DL (8.5-10.1) Estimat Glomerular Filtration Rate 84 ML/MIN (>89) Test 12/15/17 01:11 12/15/17 05:43 12/15/17 05:45 Urine Ketones 10 mg/dL (NEG) Urine Occult Blood SMALL (NEG) Urine Leukocyte Esterase SMALL (NEG) Urine RBC 7 /hpf (0-3) Urine Mucus FEW /lpf (OCC) White Blood Count 12.9 TH/MM3 (4.0-11.0) Red Blood Count 3.11 MIL/MM3 (4.00-5.30) Hemoglobin 9.7 GM/DL (11.6-15.3) Hematocrit 29.1 % (35.0-46.0) Calcium Level 8.1 MG/DL (8.5-10.1) Hospital Course Mrs. Khan is a 62-year-old female admitted secondary to syncope. She recently had a TAPVR on 12/10/2017. While here a PPM was placed on 12/12/2017. Patient is doing well after the procedure. She will continue to need physical therapy at time of discharge. At this point she is medically stable and cleared for discharge to a care home facility, she has been cleared by cardiology for discharge. New medications added at this visit are metoprolol and Keppra. Pt Condition on Discharge: Good Discharge Disposition: Discharge to SNF Discharge Time: <= 30 minutes Discharge Instructions DIET: Follow Instructions for: Heart Healthy Diet Activities you can perform: Regular-No Restrictions Follow up Referrals: Cardiology - 2 Weeks PCP Follow-up - 2 Weeks New Medications: Levetiracetam (Keppra) 500 Mg Tab 500 MG PO BID for Control Seizures, #60 TAB 0 Refills Metoprolol Succinate ER 24 HR (Metoprolol Succinate ER 24 HR) 100 Mg Tab 100 MG PO DAILY for Blood Pressure Management, #30 TAB 0 Refills Continued Medications: Aripiprazole (Abilify) 10 Mg Tab 10 MG PO DAILY, #30 TAB [address] (Aspirin DR) 81 Mg Tabdr 81 MG PO DAILY, TAB 0 Refills Buspirone (Buspirone) 15 Mg Tab 15 MG PO BID for Anxiety, TAB 0 Refills Cholecalciferol (Vitamin D) 2,000 Unit Cap CAP Clopidogrel (Clopidogrel) 75 Mg Tab 75 MG PO DAILY for Blood Clot Prevention, #30 TAB 3 Refills Fish Oil-Cholecalciferol ([place]-3 Fish Oil/Vitamin) 1,000-1,000 Mg Cap 1 CAP PO DAILY for Nutritional Supplement, CAP 0 Refills Fluoxetine (Fluoxetine) 10 Mg Tab 10 MG PO DAILY, #30 TAB 0 Refills Lamotrigine (Lamotrigine) 200 Mg Tab 200 MG PO DAILY for Control Seizures, #30 TAB 0 Refills Levothyroxine (Levothyroxine) 50 Mcg Tab 50 MCG PO DAILY for Thyroid, #30 TAB 0 Refills Lovastatin (Lovastatin) 20 Mg Tab 20 MG PO DAILY for Cholesterol Management, #30 TAB 0 Refills Mirtazapine (Mirtazapine) 15 Mg Tab 15 MG PO HS for Depression Control, #30 TAB 0 Refills Multiple Vitamin (Multi-Vitamin Daily) 1 Tab Tab 1 TAB PO DAILY for Nutritional Supplement, TAB 0 Refills Derick Valencia MD Dec 15, 2017 10:14
--- NOTE | 2017-12-15 14:35 | HM ---
Date Performed: 12/12/2017 Time Performed: 14:40:00 HOOKUP DATE: 12/12/17 02:40:00 PM Fri ANALYSIS START TIME: 12/12/2017 2:45:00 PM ANALYSIS END TIME: 12/13/2017 2:12:52 PM PATIENT AGE: 62 PATIENT HEIGHT PATIENT WEIGHT DRUG LIST PATIENT DIAGNOSIS: syncope TEST NARRATIVE: The patient's average heart rate was 97 BPM. Heart rates greater than 120 B PM were noted < 1% of the time. No episodes of bradycardia were noted. One pause of 2.2 seconds occurred at 07:46 AM. 1 ventricular ectopics, which represented < 1% of the total beat count, wer e noted. The highest ventricular ectopic frequency occurred from 09:00 AM to 10:00 AM Sat. During t his time 1 VE(s) occurred. Ventricular ectopics were observed as 1 isolated beat(s) only. No couple ts or runs were noted. No supraventricular ectopics were noted. Multiple episodes of ST depre ssion (defined as -1.0 mm or more) were noted in channel 1. The maximum depression of -1.7 mm occur red at 02:57:13 PM Fri. No episodes of ST depression (defined as -1.0 mm or more) were noted in [facility] 2. No episodes of ST depression (defined as -1.0 mm or more) were noted in channel 3. TEST INTERPRETATION: Patient was monitored for 23 hours and 28 minutes. Normal Sinus rhythm . Average heart rate is 97 beats per minute, and there appears to be a first degree AV block. Minimum heart rate is 75 bpm, maximum heat rate is 129 bpm. 1 PVC. There appears to be axis changes either d ue to rate dependent right bundle branch block and/or ventricular pacing. Clinical correlation is rec ommended. There was also an episode of what appears to be complete AV block at 6:46 am with three non conducted P-waves, and an atrial rate at approximately 105 bpm. Signed by : Dejan Arzola
[2017-12-16] VITALS (21 sets, daily range): BP systolic 111–169; BP diastolic 64–92; PULSE 65–90; RESP 14–20; TEMP 97.4–97.9; O2SAT 92–100
[2017-12-16] MEDS: METOPROLOL TARTRATE 25 MG TAB PO SCH ×3 (00:02→11:10)
[2017-12-16] MEDS: CHLORHEXIDINE GLUCONATE 2 % 1 PACK (2 CLOTHS) TOP SCH (02:43)
[2017-12-16] MEDS: LEVOTHYROXINE SODIUM 50 MCG TAB PO SCH (05:33)
[2017-12-16 06:46] LABS: HEMATOCRIT 28.7 % (35.0-46.0); HEMOGLOBIN 9.6 GM/DL (11.6-15.3); MEAN CELL VOLUME 93.4 FL (80.0-100.0); MEAN CORPUSCULAR HEMOGLOBIN 31.1 PG (27.0-34.0); MEAN CORPUSCULAR HGB CONC 33.3 % (32.0-36.0); MEAN PLATELET VOLUME 10.6 FL (7.0-11.0); PLATELET COUNT 160 TH/MM3 (150-450); RED BLOOD COUNT 3.08 MIL/MM3 (4.00-5.30); WHITE BLOOD COUNT 13.2 TH/MM3 (4.0-11.0)
[2017-12-16 06:54] LABS: BICARBONATE 28.3 MEQ/L (21.0-32.0); CALCIUM 8.3 MG/DL (8.5-10.1); CREATININE 0.74 MG/DL (0.50-1.00)
--- NOTE | 2017-12-16 08:42 | PD.CARD.PN ---
Subjective Subjective Remarks sitting up ate breakfast no complaints Objective Medications Current Medications Medications (Trade) Dose Ordered Sig/Jd Route Start Time Stop Time Status Last Admin (Tylenol) 650 mg Q4H PRN PO 12/12/17 00:15 12/13/17 17:06 (Abilify) 10 mg DAILY PO 12/12/17 09:00 12/15/17 08:15 (Ecotrin Ec) 81 mg DAILY PO 12/12/17 09:00 12/15/17 08:15 (Plavix) 75 mg DAILY PO 12/12/17 09:00 12/15/17 08:14 (PROzac) 10 mg DAILY PO 12/12/17 09:00 12/15/17 08:14 (LaMICtal) 200 mg DAILY PO 12/12/17 09:00 12/15/17 08:14 (Synthroid) 50 mcg DAILY@0600 PO 12/12/17 06:00 12/16/17 05:33 (Pravachol) 20 mg DAILY PO 12/12/17 09:00 12/15/17 08:14 (Remeron) 15 mg HS PO 12/12/17 00:30 12/15/17 20:51 (Heparin Inj) 5,000 units Q12HR SQ 12/12/17 09:00 12/15/17 20:51 Levetriacetam 500 mg/Sodium Chloride 105 ml @ 420 mls/hr Q12HR IV 12/12/17 09:00 12/15/17 20:53 (NS Flush) 2 ml UNSCH PRN IV FLUSH 12/12/17 02:45 (NS Flush) 2 ml BID IV FLUSH 12/12/17 09:00 12/15/17 21:00 (Zofran Odt) 4 mg Q6H PRN PO 12/12/17 02:45 (Albuterol Neb) 2.5 mg Q2HR NEB PRN INH 12/12/17 02:45 ([facility] [place] 1 Q361D XX 12/12/17 02:45 12/12/17 02:45 (Chlorhexidine 2% Cloth) 3 pack Taper DAILY@04 TOP 12/12/17 04:00 12/08/18 03:59 12/16/17 02:43 (Chlorhexidine 2% Cloth) 3 pack UNSCH PRN TOP 12/12/17 02:45 (Delphine-Colace) 1 tab BID PO 12/12/17 09:00 12/15/17 08:14 (Milk Of Magnesia Liq) 30 ml Q12H PRN PO 12/12/17 02:45 (Senokot) 17.2 mg Q12H PRN PO 12/12/17 02:45 (Dulcolax Supp) 10 mg DAILY PRN RECTAL 12/12/17 02:45 (Lactulose Liq) 30 ml DAILY PRN PO 12/12/17 02:45 (D50w (Vial) Inj) 50 ml UNSCH PRN IV PUSH 12/12/17 03:15 (Glucagon Inj) 1 mg UNSCH PRN OTHER 12/12/17 03:15 (Lopressor) 25 mg Q6HR PO 12/13/17 06:15 12/16/17 05:33 (Protonix) 40 mg DAILY PO 12/15/17 09:00 12/15/17 08:17 Vital Signs / I&O Vital Signs Date Time Temp Pulse Resp B/P (MAP) Pulse Ox O2 Delivery O2 Flow Rate FiO2 12/16/17 07:44 96 Nasal Cannula 1.00 12/16/17 07:44 97.7 75 20 169/77 (107) 98 12/16/17 06:00 72 12/16/17 05:00 70 12/16/17 04:00 73 12/16/17 04:00 Nasal Cannula 1.50 21 12/16/17 04:00 97.9 65 18 150/92 (111) 92 12/16/17 03:00 70 12/16/17 02:00 70 12/16/17 01:00 72 12/16/17 00:00 79 12/16/17 00:00 97.7 90 14 151/77 (101) 92 12/16/17 00:00 Nasal Cannula 2.00 12/15/17 23:00 80 12/15/17 22:00 80 12/15/17 21:00 78 12/15/17 20:00 97.6 80 16 119/71 (87) 92 12/15/17 20:00 78 12/15/17 20:00 Room Air 12/15/17 19:00 86 12/15/17 18:00 82 12/15/17 17:00 92 12/15/17 16:00 84 12/15/17 15:00 84 12/15/17 15:00 98.3 86 16 135/80 (98) 92 12/15/17 15:00 90 Room Air 12/15/17 14:00 90 12/15/17 13:00 88 12/15/17 12:00 86 12/15/17 11:00 98.4 92 18 118/67 (84) 92 12/15/17 11:00 92 Room Air 12/15/17 11:00 83 12/15/17 10:00 82 12/15/17 09:00 80 I/O 12/15/17 12/15/17 12/15/17 12/16/17 12/16/17 12/16/17 07:00 15:00 23:00 07:00 15:00 23:00 Intake Total 75 ml 600 ml Output Total 951 ml 400 ml Balance -876 ml 200 ml Intake Oral 75 ml 600 ml Output Urine Total 950 ml 400 ml Stool Total 1 ml # Voids 1 Physical Exam HEAD: Normocephalic. EYES: No scleral icterus. No injection or drainage. NECK: Supple, trachea midline. No JVD or lymphadenopathy. CARDIOVASCULAR: Regular rate and rhythm without murmurs, gallops, or rubs. RESPIRATORY: Breath sounds equal bilaterally. No accessory muscle use. GASTROINTESTINAL: Abdomen soft, non-tender, nondistended. MUSCULOSKELETAL: No cyanosis, or edema. BACK: Nontender without obvious deformity. No CVA tenderness. Laboratory Laboratory Tests Test 12/16/17 04:55 White Blood Count 13.2 TH/MM3 Red Blood Count 3.08 MIL/MM3 Hemoglobin 9.6 GM/DL Hematocrit 28.7 % Mean Corpuscular Volume 93.4 FL Mean Corpuscular Hemoglobin 31.1 PG Mean Corpuscular Hemoglobin Concent 33.3 % Red Cell Distribution Width 14.0 % Platelet Count 160 TH/MM3 Mean Platelet Volume 10.6 FL Blood Urea Nitrogen 13 MG/DL Creatinine 0.74 MG/DL Random Glucose 93 MG/DL Calcium Level 8.3 MG/DL Sodium Level 139 MEQ/L Potassium Level 3.7 MEQ/L Chloride Level 101 MEQ/L Carbon Dioxide Level 28.3 MEQ/L Anion Gap 10 MEQ/L Estimat Glomerular Filtration Rate 80 ML/MIN Imaging Last Impressions Chest X-Ray 12/13/17 0000 Signed Impressions: CONCLUSION: Mild pulmonary edema pattern with small bilateral effusions. Elevated left jordon diaphragm with left basilar consolidation. No pneumothorax. Head CT 12/11/172109 Signed Impressions: CONCLUSION: 1. No acute intracranial abnormality is identified. 2. There is paranasal sinus mucoperiosteal thickening. CT Angiography 12/11/17 0000 Signed Impressions: CONCLUSION: 1. No PE is identified. 2. Atelectasis versus consolidation at the left lung base with trace left pleu ral fluid. Assessment and Plan Problem List: (1) S/P placement of cardiac pacemaker ICD Codes: Z95.0 - Presence of cardiac pacemaker (2) Aortic stenosis ICD Codes: I35.0 - Nonrheumatic aortic (valve) stenosis (3) Right bundle branch block ICD Codes: I45.10 - Unspecified right bundle-branch block Status: Acute (4) Syncope and collapse ICD Codes: R55 - Syncope and collapse Status: Acute (5) S/P TAVR (transcatheter aortic valve replacement) ICD Codes: Z95.2 - Presence of prosthetic heart valve Assessment and Plan DC to SNF today FU with EP dr fisher 2 weeks FU with gizzard peeler dr. duff (has appointment) Ferny Ross MD Dec 16, 2017 08:42
[2017-12-16] MEDS: DOCUSATE SODIUM 50 MG/SENNA 8.6 MG TAB PO SCH (09:00)
[2017-12-16] MEDS: lamoTRIgine 100 MG TAB PO SCH (09:12)
[2017-12-16] MEDS: PRAVASTATIN SOD 20 MG TAB PO SCH (09:12)
[2017-12-16] MEDS: CLOPIDOGREL 75 MG TAB PO SCH (09:15)
[2017-12-16] MEDS: ARIPiprazole 10 MG TAB PO SCH (09:16)
[2017-12-16] MEDS: ASPIRIN EC 81 MG TABEC PO SCH (09:18)
[2017-12-16] MEDS: PANTOPRAZOLE SOD 40 MG DELAYED RELEASE TAB PO SCH (09:18)
[2017-12-16] MEDS: FLUoxetine HCL 10 MG CAP PO SCH (09:19)
[2017-12-16] MEDS: HEPARIN SODIUM - SQ 10,000 UNITS/ML VIAL SQ SCH (09:20)
[2017-12-16] MEDS: levETIRAcetam INJ 500 MG in SODIUM CHLORIDE 0.9% INJ 100 ML IV SCH (09:20)
[2017-12-16] MEDS: SODIUM CHLORIDE 0.9% FLUSH 10 ML FLUSH IV FLUSH SCH (09:21)
--- NOTE | 2018-01-01 12:48 | MP ---
cc: Enma Solorio MD,Derick Berrios,Silas Ross,Ferny Lake MD DATE OF OPERATION: 12/12/2017 INDICATIONS: Mrs. Khan is a 62-year-old female status post TAVR who developed syncope and complete AV block. Decision for pacemaker was taken. The risks, the nature and the benefits of the procedure are clearly stated to her. Risks include pneumothorax, cardiac perforation, stroke, need for open heart surgery and even . The patient understands and agreed to proceed. PROCEDURE: After written informed consent was obtained, the patient was brought to the EP lab where he was prepped and draped in the usual sterile fashion. Conscious sedation was initiated and maintained throughout the procedure by the anesthesiologist. Once sedation verified, the left infraclavicular area was anesthetized with 2% Xylocaine. Using modified Seldinger technique, the left subclavian vein was cannulated on 2 occasions. Two guidewires were advanced. Then, using a #11 blade scalpel, a 2 cm incision was made 2 fingerbreadths below left clavicle. This incision was taken down to the deep fascial layer using Bovie cautery blunt dissection. Into the medial direction, a device pocket was dissected, then the wire was dissected into the pocket. A 2-0 Vicryl suture was placed around the wire to prevent back-bleeding. At this point over a lateral wire, a 7-[place] dilator and introducer was advanced. As the dilator and wire were removed, an active fixation right ventricular pacing sensing defibrillator lead was advanced. After adequate pacing and sensing thresholds were obtained, the lead was secured in the pocket using #2 Ethibond suture. Then, over the remaining wire, a 7-[place] dilator and introducer was advanced. As dilator and wire were removed, an active fixation right atrial pacing and sensing lead was advanced. After adequate pacing and sensing thresholds obtained, the lead was secured in the pocket using a # 2 Ethibond suture. At that point, the pocket was copiously getting with antibiotic solution. The leads were connected to the generator and placed into the pocket. I did proceed with wound closure. The deep fascial layer was reapproximated using 2-0 Vicryl suture in a continuous fashion. The subcutaneous layer was approximated using 2-0 Vicryl suture in a continuous fashion. The subcuticular layer was approximated using 2-0 Vicryl suture in a continuous fashion. Dermabond adhesive was applied to the wound followed by a sterile pressure dressing. There was no complication. The patient tolerated the procedure. Blood loss minimal. 1. Implanted hardware: The implanted permanent pacemaker is a Medtronic model number W1DR01, serial number [id number]. The right atrial pacing system is a Medtronic, model number 4076-52, serial number [id number]. The right ventricular pace sensing lead is a Medtronic model number 4076-58, serial number [id number]. 2. Threshold: The right atrial pacing threshold in the bipolar mode was 2 volts at 0.4 milliseconds. Impedance 671 ohms. P-wave 2.2 millivolts. The right ventricular pacing threshold in the bipolar mode was 1.2 volts at 0.5 milliseconds. Lead impedance 1560 ohms. R-wave at 10.9 millivolts. 3. Settings: The device set in a DDD 50, upper rate limit 120 beats per minute. CONCLUSION: Successful permanent pacemaker insertion. COMMENT AND RECOMMENDATIONS: The patient is going to be transferred to the telemetry unit. He will be observed. When stable, can be discharged home. Enma Solorio MD HS/DL , 12:23 PM , 12:47 PM
== END 2017-12-16 15:58 | DRG 242 ==
LOC: NEPC 21:00 → NEDA 22:47 → HIMN 12-12 03:45 → HCIS 12-12 11:35 → HCVI 12-12 12:04 → HCIS 12-13 22:28
PROVIDERS: ADMIT Hospitalist; ATTEND Hospitalist
PROC: 02H63JZ Insertion of Pacemaker Lead into Right Atrium, Percutaneous Approach (ICD-10-PCS; 2017-12-12)
PROC: 02HK3JZ Insertion of Pacemaker Lead into Right Ventricle, Percutaneous Approach (ICD-10-PCS; 2017-12-12)
PROC: 5A12012 Performance of Cardiac Output, Single, Manual (ICD-10-PCS; 2017-12-12)
PROC: 0BH17EZ Insertion of Endotracheal Airway into Trachea, Via Natural or Artificial Opening (ICD-10-PCS; 2017-12-12)
PROC: 5A1935Z Respiratory Ventilation, Less than 24 Consecutive Hours (ICD-10-PCS; 2017-12-12)
PROC: 5A1223Z Performance of Cardiac Pacing, Continuous (ICD-10-PCS; 2017-12-12)
PROC: 02H633Z Insertion of Infusion Device into Right Atrium, Percutaneous Approach (ICD-10-PCS; 2017-12-12)
PROC: 0JH606Z Insertion of Pacemaker, Dual Chamber into Chest Subcutaneous Tissue and Fascia, Open Approach (ICD-10-PCS; principal; 2017-12-12 10:30)
PROC: 0T9B7ZZ Drainage of Bladder, Via Natural or Artificial Opening (ICD-10-PCS; 2017-12-13)
DX: I44.2 Atrioventricular block, complete (principal); J96.00 Acute respiratory failure, unspecified whether with hypoxia or hypercapnia; I46.9 Cardiac arrest, cause unspecified; I95.9 Hypotension, unspecified; J81.1 Chronic pulmonary edema; E88.09 Other disorders of plasma-protein metabolism, not elsewhere classified; I45.10 Unspecified right bundle-branch block; R00.0 Tachycardia, unspecified; G40.909 Epilepsy, unspecified, not intractable, without status epilepticus; F31.9 Bipolar disorder, unspecified; E78.5 Hyperlipidemia, unspecified; E03.9 Hypothyroidism, unspecified; I10 Essential (primary) hypertension; M81.0 Age-related osteoporosis without current pathological fracture; M19.90 Unspecified osteoarthritis, unspecified site; R73.9 Hyperglycemia, unspecified; F41.9 Anxiety disorder, unspecified; R33.9 Retention of urine, unspecified; R53.1 Weakness; R91.8 Other nonspecific abnormal finding of lung field; Z95.2 Presence of prosthetic heart valve; I25.2 Old myocardial infarction; Z79.82 Long term (current) use of aspirin; Z85.71 Personal history of Hodgkin lymphoma; Z85.43 Personal history of malignant neoplasm of ovary; Z85.828 Personal history of other malignant neoplasm of skin; Z87.891 Personal history of nicotine dependence
CPT/HCPCS: 31500; 33208; 33210; 36600; 70450; 71045; 71046; 71275; 76937; 80048; 80053; 81001; 82550; 82552; 82805; 82948; 83605; 83735; 84100; 84484; 85007; 85025; 85027; 85610; 85730; 86850; 86900; 86901; 87086; 87641; 92950; 93005; 93225; 93226; 94002; 94150; 94618; 96360; C1785; C1898; C9113; J0171; J0461; J0690; J1644; J1815; J1940; J1953; J1956; J2060; J3370; J3475; J3480; J7030; J7050; J7060; Q9967